=== PATIENT | male | born 1935 | race Native Hawaiian/Other Pacific Islander ===

== ENCOUNTER 2016-11-25 05:12 | Emergency (ER) | payer BC, MEDICARE ==
[2016-11-25 05:12] VITALS: BMI 18.3
[2016-11-25 05:28] VITALS: TEMP 98.1
--- NOTE | 2016-11-25 05:29 | C.PDOC ---
History Of Present Illness Patient presents to ED with complaints of progressive SOB and cough, denies fever and chills. Patient finished z pack. Time Seen by Provider: 11/25/16 05:12 Chief Complaint (Nursing): Shortness Of Breath History Per: Patient History/Exam Limitations: no limitations Onset/Duration Of Symptoms: Days (1) Current Symptoms Are (Timing): Still Present Initiating Event: Other Exacerbating Factor(s): Coughing Severity: Mild Pain Scale Rating Of: 2 Associated Symptoms: denies: Fever, Chills Reports Recently: Seen In ED, Treated By A Physician, Hospitalized Recent travel outside of the [place]: No Additional History Per: Patient Past Medical History Reviewed: Historical Data, Nursing Documentation, Vital Signs Vital Signs: Last Vital Signs Temp 98.1 F 11/25/16 05:31 Pulse 99 H 11/25/16 05:31 Resp 20 11/25/16 05:31 BP 163/79 H 11/25/16 05:20 Pulse Ox 92 L 11/25/16 06:03 - Medical History PMH: Asthma, COPD, Diabetes, Emphysema (D/C SMOKING 10 YRS AGO 1 PACK PER DAY) , HTN, Hypercholesterolemia Surgical History: Cholecystectomy (Approx. 2009) - [email or web address] Procedures CYSTOMETROGRAM (10/07/14) CYSTOSCOPY NEC (10/14/14) ENDOSCOPIC BRONCHIAL BX (01/15/13) INSERT INDWELLING CATH (10/18/14) TRANSURETHRAL PROSTATECTOMY (TULIP) (10/14/14) Family History: States: No Known Family Hx - Social History Hx Tobacco Use: No (quit 7 yrs ago) Hx Alcohol Use: No Hx Substance Use: No - Immunization History Hx Tetanus Toxoid Vaccination: No Hx Influenza Vaccination: Yes Hx Pneumococcal Vaccination: No Review Of Systems Constitutional: Negative for: Fever, Chills Cardiovascular: Negative for: Chest Pain Respiratory: Positive for: Cough, Shortness of Breath Gastrointestinal: Negative for: Nausea, Vomiting, Diarrhea Skin: Negative for: Rash, Lesions Physical Exam - Physical Exam Appears: Non-toxic Skin: Warm Eye(s): bilateral: Normal Inspection, PERRL, EOMI Oral Mucosa: Moist Neck: Supple Chest: Symmetrical Cardiovascular: Rhythm Regular Respiratory: Decreased Breath Sounds, No Rales, Rhonchi (Bases), No Wheezing Neurological/Psych: Oriented x3, Normal Speech, Normal Cognition Gait: Steady ED Course And Treatment - Laboratory Results Result Diagrams: 11/25/16 05:40 11/25/16 05:40 ECG: Interpreted By Me, Viewed By Me O2 Sat by Pulse Oximetry: 92 (Room air ) Pulse Ox Interpretation: Normal - Radiology CXR: Interpreted by Me, Viewed By Me CXR Interpretation: Yes: COPD. 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 - Scribe Statement The provider has reviewed the documentation as recorded by the Scribgrace Romano All medical record entries made by the Massielibgrcae were at my direction and personally dictated by me. I have reviewed the chart and agree that the record accurately reflects my personal performance of the history, physical exam, medical decision making, and the department course for this patient. I have also personally directed, reviewed, and agree with the discharge instructions and disposition.
[2016-11-25] MEDS ORDERED: Albuterol-Ipratrop 3 mg / 0.5 (3 ml) UD IH SCH (05:30)
[2016-11-25 05:43] LABS: BASO # 0.1 K/uL (0.0-0.2); EOS # 0.9 K/uL (0.0-0.7); EOS % 11.7 % (0.0-4.0); HEMATOCRIT 41.9 % (35.0-51.0); LYMPH # 2.3 K/uL (1.0-4.3); LYMPH % 30.9 % (20.0-40.0); MEAN CELL VOLUME 86.2 fL (80.0-94.0); MEAN CORPUSCULAR HGB CONC 32.4 g/dL (33.0-37.0); MEAN PLATELET VOLUME 7.4 fL (7.2-11.7); MONO # 0.5 K/uL (0.0-0.8); MONO % 7.3 % (0.0-10.0); WHITE BLOOD COUNT 7.3 K/uL (4.8-10.8)
[2016-11-25 05:52] LABS: CHLORIDE 100 mmol/L (98-107); POTASSIUM 4.8 mmol/L (3.6-5.2); SODIUM 141 mmol/L (132-148)
[2016-11-25 05:53] LABS: INR 0.9
[2016-11-25 05:54] LABS: BILIRUBIN,TOTAL 0.6 mg/dL (0.2-1.3); GFR AFRICAN-AMERICAN > 60
[2016-11-25 05:55] LABS: ALB/GLOB RATIO 1.5 (1.0-2.1); ALKALINE PHOSPHATASE 73 U/L (38-126); ALT/SGPT 23 U/L (21-72); AST/SGOT 32 U/L (17-59); BLOOD UREA NITROGEN 12 mg/dL (9-20); CALCIUM 8.5 mg/dl (8.6-10.4); CARBON DIOXIDE 30 mmol/L (22-30); GLUCOSE,RANDOM 116 mg/dL (75-110); MAGNESIUM 2.2 mg/dL (1.6-2.3); TOTAL PROTEIN 7.5 g/dL (6.3-8.3)
[2016-11-25 06:08] LABS: ABG ALLEN TEST POS; ARTERIAL BLOOD HGB O2 SAT 89.1 % (95.0-98.0); DRAW SITE RR; HHB 8.1 % (0.0-5.0); METHEMOGLOBIN 0.9 % (0.0-3.0)
[2016-11-25 07:09] VITALS: BP 130/80; PULSE 88; RESP 18; O2SAT 99
--- NOTE | 2016-11-25 09:12 | RAD ---
PROCEDURE: CHEST RADIOGRAPH, 1 VIEW HISTORY: SOB COMPARISON: 09/24/2014 FINDINGS: LUNGS: Biapical pleural thickening with upper lobe granulomatous changes. Scattered upper lobe nodularity. Hyperinflation suggestive for COPD and or emphysema. No focal infiltrate or effusion. PLEURA: No pneumothorax or pleural fluid seen. CARDIOVASCULAR: Normal. OSSEOUS STRUCTURES: No significant abnormalities. VISUALIZED UPPER ABDOMEN: Normal. OTHER FINDINGS: None. IMPRESSION: Biapical pleural thickening with upper lobe granulomatous changes. Scattered upper lobe nodularity. Hyperinflation suggestive for COPD and or emphysema. No focal infiltrate or effusion.
== END 2016-11-25 07:01 | disposition home or self-care (01) ==
LOC: C.ER 05:12
DX: J44.9 Chronic obstructive pulmonary disease, unspecified (principal); Z87.891 Personal history of nicotine dependence
CPT/HCPCS: 36600; 71010; 80053; 82009; 82803; 83735; 85025; 85610; 85730; 87040; 96374; 99284; J2930

== ENCOUNTER 2016-11-27 07:29 | Emergency (ER) | payer MEDICARE ==
[2016-11-27 07:30] VITALS: BMI 18.3
[2016-11-27 07:38] VITALS: TEMP 98
[2016-11-27] MEDS ORDERED: Albuterol-Ipratrop 3 mg / 0.5 (3 ml) UD INH STA ×2 (07:50→07:51)
[2016-11-27] MEDS ORDERED: Albuterol-Ipratrop 3 mg / 0.5 (3 ml) UD ONE (07:52)
--- NOTE | 2016-11-27 08:05 | C.PDOC ---
History Of Present Illness 81 y/o male, whose PMHx includes HTN, COPD, hyperlipidemia, and diabetes, brought to the ED by family for evaluation of shortness of breath for the last week. Patient reports associated productive cough with clear sputum. Patient was seen here on 11/25/16 for similar complaints, and was discharged home with prescription of Prednisone 20mg. Otherwise, pt denies any fever, chest pain, palpitations, pedal edema. Time Seen by Provider: 11/27/16 07:42 Chief Complaint (Nursing): Shortness Of Breath History Per: Patient, Family History/Exam Limitations: no limitations Onset/Duration Of Symptoms: Days (1 week) Current Symptoms Are (Timing): Still Present Exacerbating Factor(s): Coughing Severity: Mild Pain Scale Rating Of: 0 Associated Symptoms: Productive Cough. denies: Fever, Chills, Sweating, Chest Pain, Bloody Cough, Heart Racing, Leg/Calf Pain, Ankle/Leg Swelling, Dizziness, Light-headedness, Anxiety, Tingling In Hands Or Face, Musle Spasms In Hands Or Feet Reports Recently: Seen In ED Recent travel outside of the [place]: No Additional History Per: Family Past Medical History Reviewed: Historical Data, Nursing Documentation, Vital Signs Vital Signs: Last Vital Signs Temp 98 F 11/27/16 08:59 Pulse 104 H 11/27/16 08:59 Resp 22 11/27/16 08:59 BP 116/74 11/27/16 08:59 Pulse Ox 94 L 11/27/16 13:22 - Medical History PMH: Asthma, COPD, Diabetes, Emphysema (D/C SMOKING 10 YRS AGO 1 PACK PER DAY) , HTN, Hypercholesterolemia, Hyperlipidemia Surgical History: Cholecystectomy (Approx. 2009) - [facility] Procedures CYSTOMETROGRAM (10/07/14) CYSTOSCOPY NEC (10/14/14) ENDOSCOPIC BRONCHIAL BX (01/15/13) INSERT INDWELLING CATH (10/18/14) TRANSURETHRAL PROSTATECTOMY (TULIP) (10/14/14) Family History: States: No Known Family Hx - Social History Hx Tobacco Use: No (quit 7 yrs ago) Hx Alcohol Use: No Hx Substance Use: No - Immunization History Hx Tetanus Toxoid Vaccination: No Hx Influenza Vaccination: Yes Hx Pneumococcal Vaccination: No Review Of Systems Except As Marked, All Systems Reviewed And Found Negative. Constitutional: Negative for: Fever, Chills Cardiovascular: Negative for: Chest Pain, Palpitations, Edema, Light Headedness Respiratory: Positive for: Cough, Shortness of Breath, Sputum (clear). Negative for: Hemoptysis Gastrointestinal: Negative for: Nausea, Vomiting, Abdominal Pain, Diarrhea Physical Exam - Physical Exam Appears: Non-toxic, Other (mildly dyspneic) Skin: Normal Color, Warm, Dry, No Rash Head: Normacephalic Eye(s): bilateral: Normal Inspection Oral Mucosa: Moist Neck: Supple Cardiovascular: Rhythm Regular (tachycardic) Respiratory: No Accessory Muscle Use, Rales (bases bilaterally), No Rhonchi, Wheezing (expiratory wheezing bilaterally) Gastrointestinal/Abdominal: Normal Exam, Bowel Sounds, Soft, No Tenderness Extremity: Normal ROM, No Pedal Edema, No Calf Tenderness, No Swelling Pulses: Left Dorsalis Pedis: Normal, Right Dorsalis Pedis: Normal Neurological/Psych: Oriented x3 ED Course And Treatment - Laboratory Results Result Diagrams: 11/27/16 08:04 11/27/16 08:04 ECG: Interpreted By Me, Viewed By Me ECG Rhythm: Sinus Tachycardia ECG Interpretation: Abnormal (TACHYCARDIC ) Interpretation Of ECG: Normal axis. No acute ST/T wave changes. Rate From EC (bpm) O2 Sat by Pulse Oximetry: 94 (on RA) - Radiology CXR: Interpreted by Me, Viewed By Me (no infiltrates/effusions) - Other Rad CXR X-Ray: Viewed By Me, Read By Radiologist Interpretation: FINDINGS: LUNGS: No focal consolidation. Please note that chest x-ray has limited sensitivity for the detection of pulmonary masses. PLEURA: No significant pleural effusion identified. No definite pneumothorax . CARDIOVASCULAR: Heart size is top-normal. Atherosclerotic calcification of the aorta. OSSEOUS STRUCTURES: Degenerative changes. VISUALIZED UPPER ABDOMEN : Unremarkable. OTHER FINDINGS: None. IMPRESSION: No focal consolidation, significant pleural effusion, or definite pneumothorax identified. Progress Note: Blood work, EKG, CXR ordered and reviewed. Patient was given IV solumedrol and nebulizer treatments. Reevaluation Time: 08:55 Reassessment Condition: Improved (On reassessment, patient states he feels much better and would like to be discharged home. On exam, he has good air entry B/ L without wheezing/rales/accessory muscle use. Pox is 94% on RA, which is typical for him/his COPD. Blood work and CXR unremarkable. Family at bedside is in agreement with him being discharged home. He was given Rxs for increased dose of prednisone (40mg), albuterol inhaler and tessalon perles. He was instructed to follow up with PMD in 1-2 days, and understands he should return to ED immediately if symptoms worsen.) Disposition Counseled Patient/Family Regarding: Studies Performed, Diagnosis, Need For Followup, Rx Given - Disposition Referrals: Bassam Rolle MD [Staff Provider] - Mike Cornelius MD [Staff Provider] - Disposition: HOME/ ROUTINE Disposition Time: 08:55 Condition: STABLE Additional Instructions: FOLLOW UP WITH YOUR DOCTOR IN 1-2 DAYS, AND WITH [employer] WITHIN 1 WEE TAKE 40MG PREDNISONE X 4 DAYS, STARTING TOMORROW RETURN TO ER IF SYMPTOMS WORSEN Prescriptions: Benzonatate [Tessalon Perles] 100 mg PO BID PRN #15 sgl PRN Reason: Cough Albuterol HFA [Ventolin HFA 90 mcg/actuation (8 g)] 0.09 mg IH Q4 PRN #1 puff PRN Reason: Wheezing predniSONE [predniSONE Tab] 40 mg PO DAILY #4 tab Instructions: COPD (Chronic Obstructive Pulmonary Disease) (ED) Print Language: OMANI - POA Present On Arrival: None - Clinical Impression Clinical Impression: Chronic obstructive lung disease - Scribe Statement The provider has reviewed the documentation as recorded by the Massielibgrace Ohara Provider Attestation: All medical record entries made by the Massielibgrace were at my direction and personally dictated by me. I have reviewed the chart and agree that the record accurately reflects my personal performance of the history, physical exam, medical decision making, and the department course for this patient. I have also personally directed, reviewed, and agree with the discharge instructions and disposition.
[2016-11-27 08:10] LABS: BASO # 0.1 K/uL (0.0-0.2); BASO % 0.8 % (0.0-2.0); EOS # 0.1 K/uL (0.0-0.7); EOS % 0.8 % (0.0-4.0); HEMATOCRIT 39.2 % (35.0-51.0); LYMPH # 1.5 K/uL (1.0-4.3); LYMPH % 18.1 % (20.0-40.0); MEAN CELL VOLUME 87.1 fL (80.0-94.0); MEAN CORPUSCULAR HEMOGLOBIN 28.2 pg (27.0-31.0); MEAN CORPUSCULAR HGB CONC 32.4 g/dL (33.0-37.0); MEAN PLATELET VOLUME 7.1 fL (7.2-11.7); MONO # 0.6 K/uL (0.0-0.8); MONO % 7.4 % (0.0-10.0); RED CELL DISTRIBUTION WIDTH 14.3 % (11.5-14.5); WHITE BLOOD COUNT 8.3 K/uL (4.8-10.8)
[2016-11-27 08:17] LABS: CHLORIDE 102 mmol/L (98-107); POTASSIUM 4.3 mmol/L (3.6-5.2); SODIUM 141 mmol/L (132-148)
[2016-11-27 08:19] LABS: GFR AFRICAN-AMERICAN > 60; INR 0.8
[2016-11-27 08:20] LABS: ALB/GLOB RATIO 1.5 (1.0-2.1); ALKALINE PHOSPHATASE 71 U/L (38-126); ALT/SGPT 25 U/L (21-72); AST/SGOT 27 U/L (17-59); BILIRUBIN,TOTAL 0.4 mg/dL (0.2-1.3); BLOOD UREA NITROGEN 18 mg/dL (9-20); CALCIUM 8.5 mg/dl (8.6-10.4); CARBON DIOXIDE 27 mmol/L (22-30); GLUCOSE,RANDOM 95 mg/dL (75-110)
[2016-11-27 08:59] VITALS: BP 116/74; PULSE 104; RESP 22
--- NOTE | 2016-11-27 09:16 | RAD ---
HISTORY: cough, sob COMPARISON: Chest x-ray performed 11/25/16 TECHNIQUE: Chest, one view. FINDINGS: LUNGS: No focal consolidation. Please note that chest x-ray has limited sensitivity for the detection of pulmonary masses. PLEURA: No significant pleural effusion identified. No definite pneumothorax . CARDIOVASCULAR: Heart size is top-normal. Atherosclerotic calcification of the aorta. OSSEOUS STRUCTURES: Degenerative changes. VISUALIZED UPPER ABDOMEN: Unremarkable. OTHER FINDINGS: None. IMPRESSION: No focal consolidation, significant pleural effusion, or definite pneumothorax identified.
[2016-11-27 13:22] VITALS: O2SAT 94
--- NOTE | 2016-11-29 08:00 | CARD ---
APPROVED REPORT EKG Measurement Heart [id number] NM [id number] <Conclusion> Sinus tachycardia Possible Left atrial enlargement Septal infarct, age undetermined Abnormal ECG
== END 2016-11-27 09:13 | disposition home or self-care (01) ==
LOC: C.ER 07:29
DX: J44.9 Chronic obstructive pulmonary disease, unspecified (principal)
CPT/HCPCS: 71010; 80053; 82550; 82553; 82948; 83880; 84484; 85025; 85610; 85730; 87040; 93005; 94640; 96374; 99285; J2930

== ENCOUNTER 2017-08-13 07:25 | Emergency (ER) | payer MEDICARE ==
[2017-08-13 07:25] VITALS: BMI 18.3
[2017-08-13 07:35] VITALS: TEMP 98.1
[2017-08-13] MEDS ORDERED: Albuterol-Ipratrop 3 mg / 0.5 (3 ml) UD ONE (07:41)
[2017-08-13] MEDS ORDERED: Albuterol-Ipratrop 3 mg / 0.5 (3 ml) UD INH STA (07:53)
[2017-08-13 08:11] LABS: VENOUS BLOOD GAS PCO2 48 mmHg (40-60); VENOUS BLOOD GAS PO2 32 mm/Hg (30-55)
[2017-08-13 08:13] LABS: BASO % 0.5 % (0.0-2.0); EOS # 0.1 K/uL (0.0-0.7); EOS % 0.7 % (0.0-4.0); LYMPH # 0.4 K/uL (1.0-4.3); LYMPH % 5.3 % (20.0-40.0); MEAN CELL VOLUME 85.3 fL (80.0-94.0); MEAN CORPUSCULAR HEMOGLOBIN 28.6 pg (27.0-31.0); MEAN CORPUSCULAR HGB CONC 33.5 g/dL (33.0-37.0); MEAN PLATELET VOLUME 7.4 fL (7.2-11.7); MONO # 0.6 K/uL (0.0-0.8); MONO % 7.7 % (0.0-10.0); NEUT # 6.5 K/uL (1.8-7.0); NEUT % 85.8 % (50.0-75.0); PLATELET COUNT 213 K/uL (130-400); RBC 4.89 Mil/uL (4.40-5.90); RED CELL DISTRIBUTION WIDTH 14.4 % (11.5-14.5); WHITE BLOOD COUNT 7.5 K/uL (4.8-10.8)
--- NOTE | 2017-08-13 08:36 | C.PDOC ---
History Of Present Illness <Milka Mcclure - Last Filed: 08/13/17 10:01> <Sahara Salter - Last Filed: 08/14/17 16:59> 81 year old male, with past medical history of COPD, and chronic cough, presents to ED for evaluation of worsening shortness of breath and dyspnea on exertion for the past 2 weeks. Denies chest pain, fever, nausea, vomiting, or leg swelling. Notes using home oxygen 2L PRN. WORSENING SOB/HEBERT X 2 WEEKS. HO COPD. +CHRONIC COUGH. DENIES CP, FEVER. NO NV. NO LEG SWELLING. USES HOME O2 2L PRN EXAM NARD ON O2 LUNGS +DEC BS L LOWER LOBE SPEAKING FUL LSENTENCES, NO RETRACTIONS NO EDEMA CV RRR REMAINDER NEG (Milka Mcclure) Patient called back for (+) blood cultures. Spoke to the family and they will return to the hospital today. (Sahara Salter) History Per: Patient History/Exam Limitations: no limitations Onset/Duration Of Symptoms: Days Current Symptoms Are (Timing): Still Present Exacerbating Factor(s): Coughing Current Respiratory Medications: See Home Med List Associated Symptoms: denies: Fever, Chills, Sweating, Chest Pain, Bloody Cough, Heart Racing, Leg/Calf Pain, Ankle/Leg Swelling, Dizziness, Light-headedness, Anxiety, Tingling In Hands Or Face, Musle Spasms In Hands Or Feet Recent travel outside of the [place]: No Additional History Per: Patient <Milka Mcclure - Last Filed: 08/13/17 10:01> <Sahara Salter - Last Filed: 08/14/17 16:59> Time Seen by Provider: 08/13/17 08:05 Chief Complaint (Nursing): Shortness Of Breath Past Medical History Reviewed: Historical Data, Nursing Documentation, Vital Signs - Medical History PMH: Asthma, COPD, Diabetes, Emphysema (D/C SMOKING 10 YRS AGO 1 PACK PER DAY) , HTN, Hypercholesterolemia, Hyperlipidemia Surgical History: Cholecystectomy Family History: States: Unknown Family Hx - Social History Hx Tobacco Use: No (quit 7 yrs ago) Hx Alcohol Use: No Hx Substance Use: No - Immunization History Hx Tetanus Toxoid Vaccination: No Hx Influenza Vaccination: Yes Hx Pneumococcal Vaccination: Yes <Milka Mcclure - Last Filed: 08/13/17 10:01> Vital Signs: Last Vital Signs Temp 98.1 F 08/13/17 07:32 Pulse 122 H 08/13/17 10:35 Resp 21 08/13/17 10:35 BP 114/63 08/13/17 10:35 Pulse Ox 94 L 08/13/17 10:35 - [facility] Procedures CYSTOMETROGRAM (10/07/14) CYSTOSCOPY NEC (10/14/14) ENDOSCOPIC BRONCHIAL BX (01/15/13) INSERT INDWELLING CATH (10/18/14) TRANSURETHRAL PROSTATECTOMY (TULIP) (10/14/14) Review Of Systems Except As Marked, All Systems Reviewed And Found Negative. Constitutional: Negative for: Fever, Chills Cardiovascular: Negative for: Chest Pain, Palpitations, Edema, Light Headedness Respiratory: Positive for: Cough, Shortness of Breath, SOB with Excertion Gastrointestinal: Negative for: Nausea, Vomiting, Abdominal Pain Neurological: Negative for: Headache, Dizziness <RenMilka - Last Filed: 08/13/17 10:01> Physical Exam - Physical Exam Appears: Non-toxic, No Acute Distress (No acute respiratory distress on O2) Skin: Normal Color, Warm, Dry Head: Atraumatic, Normacephalic Eye(s): bilateral: Normal Inspection Oral Mucosa: Moist Neck: Normal ROM, Supple Chest: Symmetrical Cardiovascular: Rhythm Regular, No Murmur Respiratory: Decreased Breath Sounds (left lower lobe), Other (speaking in full sentences, no retractions) Gastrointestinal/Abdominal: Soft, No Tenderness Extremity: Normal ROM, No Pedal Edema Neurological/Psych: Oriented x3, Normal Speech <RenMilka - Last Filed: 08/13/17 10:01> ED Course And Treatment - Laboratory Results Result Diagrams: 08/13/17 08:08 08/13/17 08:08 ECG: Interpreted By Me ECG Rhythm: Sinus Tachycardia ECG Interpretation: Abnormal Rate From EC O2 Sat by Pulse Oximetry: 93 Pulse Ox Interpretation: Abnormal - Radiology CXR: Interpreted by Me CXR Interpretation: Yes: No Acute Disease <RenMilka - Last Filed: 08/13/17 10:01> - Laboratory Results Result Diagrams: 08/13/17 08:08 08/13/17 08:08 <Sahara Salter - Last Filed: 08/14/17 16:59> Progress - Data Reviewed Data Reviewed: Lab, Diagnostic imaging, EKG, Old records <Milka Mcclure - Last Filed: 08/13/17 10:01> <Sahara Salter - Last Filed: 08/14/17 16:59> - Re-Evaluation Re-evaluation Note: 08/13/17 10:01 APPEARS COMFORTABLE NARD 94% RA SP NEBS. PT DENIES RECENT ETOH, PRIOR HO ABN LFT. ANICTERIC, NO ABD PAIN OR ASCITES, JAUNDICE. PT ADVISED NEED FOR FU. PT OFFERED ADMISSION, WISHES DC HOME. (Milka Mcclure) Medical Decision Making <Milka Mcclure - Last Filed: 08/13/17 10:01> <Sahara Salter - Last Filed: 08/14/17 16:59> Medical Decision Making: Plan: * Blood work * CXR * EKG * Duoneb, Solu-Medrol, IV fluids * Reassess and disposition (Milka Mcclure) Disposition Counseled Patient/Family Regarding: Studies Performed, Diagnosis, Need For Followup, Rx Given - Disposition Disposition Time: 10:03 <Milka Mcclure - Last Filed: 08/13/17 10:01> <Sahara Salter - Last Filed: 08/14/17 16:59> - Disposition Referrals: YOUR,PMD [Other] Disposition: HOME/ ROUTINE Condition: IMPROVED Prescriptions: Moxifloxacin [Avelox] 400 mg PO DAILY #6 tab predniSONE [Prednisone] 60 mg PO DAILY #12 tab Instructions: Acute Bronchitis (ED), COPD (Chronic Obstructive Pulmonary Disease) (ED) Forms: [employer] (Romansh) - Clinical Impression Clinical Impression: Chr obstructive pulmonary disease w/ acute lower respiratory infxn - Scribe Statement The provider has reviewed the documentation as recorded by the Scribe <Milka Mcclure - Last Filed: 08/13/17 10:01> <Sahara Salter - Last Filed: 08/14/17 16:59> - Scribe Statement Agustin Ohara All medical record entries made by the Scribe were at my direction and personally dictated by me. I have reviewed the chart and agree that the record accurately reflects my personal performance of the history, physical exam, medical decision making, and the department course for this patient. I have also personally directed, reviewed, and agree with the discharge instructions and disposition. (Milka Mcclure)
[2017-08-13] MEDS ORDERED: Sodium Chloride 0.9% 1,000 ML IV ONE (08:49)
[2017-08-13] MEDS ORDERED: MethylPREDNISolone 40 mg Vial IVP STA (08:50)
[2017-08-13 08:56] LABS: ALB/GLOB RATIO 1.3 (1.0-2.1); ALBUMIN 4.2 g/dL (3.5-5.0); ALT/SGPT 164 U/L (21-72); AST/SGOT 85 U/L (17-59); BLOOD UREA NITROGEN 14 mg/dL (9-20); CALCIUM 9.1 mg/dl (8.6-10.4); GFR AFRICAN-AMERICAN > 60; GFR NON-AFRICAN AMERICAN 58
[2017-08-13] MEDS ORDERED: Sodium Chloride 0.9% 1,000 ML ONE (09:20)
[2017-08-13] MEDS ORDERED: MethylPREDNISolone 40 mg Vial ONE (09:20)
[2017-08-13 09:31] LABS: BANDS 1 % (0-2); LYMPHOCYTE 2 % (20-40); MONOCYTE 6 % (0-10); NEUTROPHIL 91 % (50-75); PLATELET ESTIMATE NORMAL (NORMAL); TOTAL CELLS COUNTED 100
--- NOTE | 2017-08-13 10:15 | RAD ---
PROCEDURE: CHEST RADIOGRAPH, 1 VIEW HISTORY: SOB COMPARISON: Comparison is made to 11/27/2026 FINDINGS: LUNGS: No evidence of new infiltrate or consolidation in the lungs PLEURA: No pneumothorax or pleural fluid seen. CARDIOVASCULAR: Normal. OSSEOUS STRUCTURES: No significant abnormalities. VISUALIZED UPPER ABDOMEN: Normal. OTHER FINDINGS: None. IMPRESSION: No evidence of acute pathology in the lungs.
[2017-08-13 11:13] VITALS: BP 114/63; PULSE 122; RESP 21; O2SAT 94
--- NOTE | 2017-08-15 13:14 | CARD ---
APPROVED REPORT EKG Measurement Heart [id number] <Conclusion> Sinus tachycardia with premature atrial complexes in a pattern of bigeminy Possible Left atrial enlargement Borderline ECG
== END 2017-08-13 10:40 | disposition home or self-care (01) ==
LOC: C.ER 07:25
DX: J44.0 Chronic obstructive pulmonary disease with (acute) lower respiratory infection (principal)
CPT/HCPCS: 71010; 80053; 82803; 82948; 83880; 85025; 87040; 87205; 93005; 96361; 96374; 99285; J2920; J7040

== ENCOUNTER 2017-08-14 17:49 | Inpatient (IN) | payer MEDICARE ==
[2017-08-14 17:49] VITALS: BMI 18.3
--- NOTE | 2017-08-14 18:21 | C.PDOC ---
History Of Present Illness 81 year old male presents to the ER after he received results for positive blood cultures with gram negative rods. Patient currently has no complaints at this times and denies any symptoms of fever, chest pain, SOB, or cough. Time Seen by Provider: 08/14/17 17:57 Chief Complaint (Nursing): Medical Clearance History Per: Patient History/Exam Limitations: no limitations Onset/Duration Of Symptoms: Days Current Symptoms Are (Timing): Still Present Recent travel outside of the [place]: No Past Medical History Reviewed: Historical Data, Nursing Documentation, Vital Signs Vital Signs: Last Vital Signs Temp 98.7 F 08/19/17 07:43 Pulse 72 08/19/17 07:43 Resp 20 08/19/17 07:43 BP 120/70 08/19/17 07:43 Pulse Ox 99 08/19/17 07:43 - Medical History PMH: Asthma, COPD, Diabetes, Emphysema (D/C SMOKING 10 YRS AGO 1 PACK PER DAY) , HTN, Hypercholesterolemia, Hyperlipidemia Surgical History: Cholecystectomy - [facility] Procedures CYSTOMETROGRAM (10/07/14) CYSTOSCOPY NEC (10/14/14) ENDOSCOPIC BRONCHIAL BX (01/15/13) INSERT INDWELLING CATH (10/18/14) TRANSURETHRAL PROSTATECTOMY (TULIP) (10/14/14) Family History: States: Unknown Family Hx - Social History Hx Tobacco Use: No (quit 7 yrs ago) Hx Alcohol Use: No Hx Substance Use: No - Immunization History Hx Tetanus Toxoid Vaccination: No Hx Influenza Vaccination: Yes Hx Pneumococcal Vaccination: Yes Review Of Systems Except As Marked, All Systems Reviewed And Found Negative. Physical Exam - Physical Exam Appears: Non-toxic, Chronically Ill Skin: Normal Color, Warm, Dry Head: Atraumatic, Normacephalic Eye(s): bilateral: Normal Inspection Oral Mucosa: Moist Neck: Normal, Supple Chest: Symmetrical, No Tenderness Cardiovascular: Rhythm Regular Respiratory: Normal Breath Sounds, No Rales, No Rhonchi, No Wheezing Gastrointestinal/Abdominal: Soft, No Tenderness Neurological/Psych: Oriented x3, Normal Speech ED Course And Treatment - Laboratory Results Result Diagrams: 08/18/17 06:16 08/18/17 06:16 O2 Sat by Pulse Oximetry: 95 (Room air) Pulse Ox Interpretation: Normal Medical Decision Making Medical Decision Making: Blood work, EKG, CXR, and urinalysis ordered. The case was discussed with Dr. Rolle and agrees to admit the patient. Disposition - Disposition Disposition: HOSPITALIZED Disposition Time: 18:30 Condition: STABLE - Clinical Impression Clinical Impression: Bacteremia - PA / MANIFEST CLERK / Resident Statement MD/DO has reviewed & agrees with the documentation as recorded. - Scribe Statement The provider has reviewed the documentation as recorded by the Scribe Tommy Sawant All medical record entries made by the Massielibe were at my direction and personally dictated by me. I have reviewed the chart and agree that the record accurately reflects my personal performance of the history, physical exam, medical decision making, and the department course for this patient. I have also personally directed, reviewed, and agree with the discharge instructions and disposition.
[2017-08-14 18:32] LABS: VENOUS BLOOD GAS BASE EXCESS 4.7 mmol/L (0.0-2.0); VENOUS BLOOD GAS PCO2 51 mmHg (40-60); VENOUS BLOOD GAS PO2 30 mm/Hg (30-55); VENOUS BLOOD PH 7.39 (7.32-7.43)
[2017-08-14 18:33] LABS: BASO % 0.4 % (0.0-2.0); EOS # 0.1 K/uL (0.0-0.7); EOS % 0.8 % (0.0-4.0); HEMOGLOBIN 12.9 g/dL (12.0-18.0); LYMPH # 1.3 K/uL (1.0-4.3); LYMPH % 10.1 % (20.0-40.0); MEAN CORPUSCULAR HEMOGLOBIN 28.1 pg (27.0-31.0); MEAN PLATELET VOLUME 7.5 fL (7.2-11.7); MONO % 8.1 % (0.0-10.0); NEUT # 10.2 K/uL (1.8-7.0); NEUT % 80.6 % (50.0-75.0); RBC 4.59 Mil/uL (4.40-5.90); RED CELL DISTRIBUTION WIDTH 14.6 % (11.5-14.5)
[2017-08-14 18:35] LABS: WHITE BLOOD COUNT 12.6 K/uL (4.8-10.8)
[2017-08-14 18:41] LABS: INR 0.9; PROTHROMBIN TIME 9.7 SECONDS (9.7-12.2)
[2017-08-14 18:52] LABS: ALB/GLOB RATIO 1.2 (1.0-2.1); ALBUMIN 3.9 g/dL (3.5-5.0); CALCIUM 8.4 mg/dl (8.6-10.4); MAGNESIUM 2.2 mg/dL (1.6-2.3)
[2017-08-14] MEDS ORDERED: cefTRIAXone 2 GM in Sodium Chloride 0.9% 100 ML IVPB STA (18:53)
[2017-08-14] MEDS ORDERED: cefTRIAXone 2 GM in Dextrose 5% In Water 100 ML IVPB ONE (20:00)
[2017-08-14] MEDS: Fluticasone-Salmeterol 500-50mcg Diskus INH SCH (20:05)
--- NOTE | 2017-08-14 21:58 | US ---
EXAM: US Abdomen Complete CLINICAL HISTORY: 81 years old, male; Signs and symptoms; Abdominal or pelvic symptoms: Abnormal lft's; Prior surgery; Surgery date: 6+ months; Surgery type: Gb surgery; Additional info: Abnormal lft; (+) gm negative inblood culture TECHNIQUE: Real-time ultrasound of the abdomen (complete) with image documentation. COMPARISON: No relevant prior studies available. FINDINGS: Liver: Fatty infiltration. No mass. No intrahepatic ductal dilatation. Gallbladder: Cholecystectomy. Common bile duct: Up to 1.3 cm in diameter. No stones. Pancreas: Unremarkable as visualized. Kidneys: Increased in echogenicity. Small right renal cyst. No hydronephrosis. Spleen: No splenomegaly. Aorta: Unremarkable. No aneurysm. Inferior vena cava: Unremarkable. Free fluid: No significant free fluid. IMPRESSION: 1. Biliary ductal dilatation. Correlate with laboratory values. Consider MRCP. 2. Echogenic kidneys suggesting medical renal disease. 3. Incidental/non-acute findings are described above.
[2017-08-14] MEDS: (Novolog) Insulin Aspart, Recombinant 100 u/ml 10 ml vial SC SCH (22:39)
[2017-08-14] MEDS: Enoxaparin 30 mg Syringe SC SCH (22:40)
[2017-08-14 23:05] LABS: URINE BILIRUBIN NEGATIVE (NEGATIVE); URINE BLOOD 1+ (NEGATIVE); URINE CLARITY Clear (Clear); URINE COLOR Yellow (YELLOW); URINE GLUCOSE (UA) NORMAL (Normal); URINE LEUKOCYTE ESTERASE NEG Leu/uL (Negative); URINE NITRATE NEGATIVE (NEGATIVE); URINE PROTEIN 1+ mg/dL (NEGATIVE); URINE UROBILINOGEN NORMAL mg/dL (0.2-1.0)
[2017-08-14] MEDS: Albuterol 0.042% Inhal Sol (1.25 mg/3 mL) UD INH PRN (23:29)
[2017-08-15] MEDS: Cefepime IV 1 gm in Dextrose 1 GM/50 ML BAG IVPB SCH ×2 (00:44→12:41)
[2017-08-15] MEDS: Albuterol 0.042% Inhal Sol (1.25 mg/3 mL) UD INH PRN ×4 (05:24→23:38)
[2017-08-15] MEDS: (Novolog) Insulin Aspart, Recombinant 100 u/ml 10 ml vial SC SCH ×4 (08:12→21:26)
[2017-08-15] MEDS: Enoxaparin 30 mg Syringe SC SCH ×2 (09:26→21:22)
[2017-08-15] MEDS: Fluticasone-Salmeterol 500-50mcg Diskus INH SCH ×2 (09:33→20:01)
--- NOTE | 2017-08-15 09:33 | CP.PCM.HP ---
History of Present Illness - History of Present Illness History of Present Illness: CC: (+) Result 81 y/o male with COPD, NIDDM, BPH. Patient went to Er c/o choking sensation that usually happen if mucus is stuck on his throat. He was given Neb Tx and sent home. he was recalled yesterday c/o (+) Bld C/S with Gm neg rods. Present on Admission - Present on Admission Any Indicators Present on Admission: Yes History of DVT/PE: No History of Uncontrolled Diabetes: No Urinary Catheter: No Decubitus Ulcer Present: No Review of Systems - Review of Systems Systems not reviewed;Unavailable: Acuity of Condition - Constitutional Constitutional: absent: Anorexia, Chills, Night Sweats, Weight Loss - EENT Eyes: absent: Change in Vision, Pain, Sees Flashes, Other Visual Disturbances Ears: absent: Ear Discharge, Disequilibrium, Dizziness Nose/Mouth/Throat: absent: Nasal Congestion, Bleeding Gums, Halitosis, Mouth Pain - Cardiovascular Cardiovascular: Dyspnea. absent: Irregular Heart Rhythm, Leg Edema, Palpitations, Pedal Edema, Syncope - Respiratory Respiratory: Cough, Dyspnea on Exertion, Wheezing. absent: Chest Congestion, Excessive Mucous Production, Change in Mucous Color - Gastrointestinal Gastrointestinal: absent: Bloating, Change in Bowel Habits, Dyspepsia, Dysphagia , Excessive Flatus, Heartburn, Hematochezia, Nausea - Genitourinary Genitourinary: absent: Hematuria, Pyuria, Nocturia, Urinary Urgency - Musculoskeletal Musculoskeletal: absent: Arthralgias, Muscle Weakness, Neck Pain - Integumentary Integumentary: absent: Alopecia, Change in Hair, Rash - Neurological Neurological: absent: Disequilibrium, Dizziness, Numbness, Focal Weakness Past Patient History - Infectious Disease Hx of Infectious Diseases: None - Past Medical History & Family History Past Medical History?: Yes - Past Social History Smoking Status: Former Smoker - CARDIAC Hx Cardiac Disorders: Yes Hx Hypercholesterolemia: Yes Hx Hypertension: Yes - PULMONARY Hx Respiratory Disorders: Yes Hx Asthma: Yes Hx Chronic Obstructive Pulmonary Disease (COPD): Yes Hx Emphysema: Yes (D/C SMOKING 10 YRS AGO 1 PACK PER DAY) - NEUROLOGICAL Hx Neurological Disorder: No - HEENT Hx HEENT Problems: No - RENAL Hx Chronic Kidney Disease: No - ENDOCRINE/METABOLIC Hx Endocrine Disorders: Yes Hx Diabetes Mellitus Type 2: Yes - HEMATOLOGICAL/ONCOLOGICAL Hx Blood Disorders: No - INTEGUMENTARY Hx Dermatological Problems: No - MUSCULOSKELETAL/RHEUMATOLOGICAL Hx Musculoskeletal Disorders: No Hx Falls: No - GASTROINTESTINAL Hx Gastrointestinal Disorders: No - GENITOURINARY/GYNECOLOGICAL Hx Genitourinary Disorders: Yes (URINARY RETENTION) Hx Prostate Problems: Yes - PSYCHIATRIC Hx Psychophysiologic Disorder: No Hx Substance Use: No - SURGICAL HISTORY Hx Surgeries: Yes Hx Cholecystectomy: Yes - ANESTHESIA Hx Anesthesia: Yes Hx Anesthesia Reactions: No Hx Malignant Hyperthermia: No Has any member of the family had a problem w/ anesthesia?: No Meds Allergies/Adverse Reactions: Allergies Allergy/AdvReac Type Severity Reaction Status Date / Time No Known Allergies Allergy Verified 08/13/17 07:32 Physical Exam - Constitutional Appears: No Acute Distress - Eye Exam Eye Exam: Normal appearance - ENT Exam ENT Exam: Mucous Membranes Moist - Neck Exam Neck exam: Positive for: Full Rom. Negative for: Lymphadenopathy, Thyromegaly - Respiratory Exam Respiratory Exam: Decreased Breath Sounds, Wheezes. absent: Rales, Rhonchi - Cardiovascular Exam Cardiovascular Exam: REGULAR RHYTHM, +S1, +S2, Systolic Murmur. absent: Gallop , JVD - GI/Abdominal Exam GI & Abdominal Exam: Soft. absent: Mass, Rebound, Tenderness - Extremities Exam Extremities exam: Positive for: full ROM, normal capillary refill. Negative for : calf tenderness, joint swelling, pedal edema Results - Vital Signs Recent Vital Signs: Last Vital Signs Temp 98.3 F 08/15/17 07:56 Pulse 86 08/15/17 07:56 Resp 20 08/15/17 07:56 BP 133/71 08/15/17 07:56 Pulse Ox 95 08/15/17 07:56 - Labs Result Diagrams: 08/14/17 18:25 08/14/17 18:25 Labs: Laboratory Results - last 24 hr 08/14/17 08/14/17 08/14/17 18:25 18:25 18:25 WBC 12.6 H D RBC 4.59 Hgb 12.9 Hct 39.0 MCV 85.0 MCH 28.1 MCHC 33.0 RDW 14.6 H Plt Count 221 MPV 7.5 Neut % (Auto) 80.6 H Lymph % (Auto) 10.1 L [place] % (Auto) 8.1 Eos % (Auto) 0.8 Baso % (Auto) 0.4 Neut # 10.2 H Lymph # 1.3 [place] # 1.0 H Eos # 0.1 Baso # 0.0 PT 9.7 INR 0.9 APTT 31 pO2 VBG pH VBG pCO2 VBG HCO3 VBG Total CO2 VBG O2 Sat (Calc) VBG Base Excess VBG Potassium Glucose Lactate Sodium 134 Potassium 4.1 Chloride 97 L Carbon Dioxide 28 Anion Gap 12 BUN 26 H Creatinine 1.4 Est GFR ( Amer) 59 Est GFR (Non-Af Amer) 49 POC Glucose (mg/dL) Random Glucose 174 H Hemoglobin A1c Calcium 8.4 L Phosphorus 2.9 Magnesium 2.2 Total Bilirubin 0.5 AST 60 H D ALT 107 H D Alkaline Phosphatase 162 H D Total Protein 7.1 Albumin 3.9 Globulin 3.2 Albumin/Globulin Ratio 1.2 Venous Blood Potassium Urine Color Urine Clarity Urine pH Ur Specific [place] Urine Protein Urine Glucose (UA) Urine Ketones Urine Blood Urine Nitrate Urine Bilirubin Urine Urobilinogen Ur Leukocyte Esterase Urine WBC (Auto) Urine RBC (Auto) 08/14/17 08/14/17 08/14/17 18:28 20:03 21:02 WBC RBC Hgb Hct MCV MCH MCHC RDW Plt Count MPV Neut % (Auto) Lymph % (Auto) [place] % (Auto) Eos % (Auto) Baso % (Auto) Neut # Lymph # [place] # Eos # Baso # PT INR APTT pO2 30 VBG pH 7.39 VBG pCO2 51 VBG HCO3 27.5 VBG Total CO2 32.5 H VBG O2 Sat (Calc) 67.1 H VBG Base Excess 4.7 H VBG Potassium 3.9 Glucose 183 H Lactate 1.9 Sodium 140.0 Potassium Chloride 104.0 Carbon Dioxide Anion Gap BUN Creatinine Est GFR ( Amer) Est GFR (Non-Af Amer) POC Glucose (mg/dL) 119 H Random Glucose Hemoglobin A1c 7.0 H Calcium Phosphorus Magnesium Total Bilirubin AST ALT Alkaline Phosphatase Total Protein Albumin Globulin Albumin/Globulin Ratio Venous Blood Potassium 3.9 Urine Color Urine Clarity Urine pH Ur Specific [place] Urine Protein Urine Glucose (UA) Urine Ketones Urine Blood Urine Nitrate Urine Bilirubin Urine Urobilinogen Ur Leukocyte Esterase Urine WBC (Auto) Urine RBC (Auto) 08/14/17 22:41 WBC RBC Hgb Hct MCV MCH MCHC RDW Plt Count MPV Neut % (Auto) Lymph % (Auto) [place] % (Auto) Eos % (Auto) Baso % (Auto) Neut # Lymph # [place] # Eos # Baso # PT INR APTT pO2 VBG pH VBG pCO2 VBG HCO3 VBG Total CO2 VBG O2 Sat (Calc) VBG Base Excess VBG Potassium Glucose Lactate Sodium Potassium Chloride Carbon Dioxide Anion Gap BUN Creatinine Est GFR ( Amer) Est GFR (Non-Af Amer) POC Glucose (mg/dL) Random Glucose Hemoglobin A1c Calcium Phosphorus Magnesium Total Bilirubin AST ALT Alkaline Phosphatase Total Protein Albumin Globulin Albumin/Globulin Ratio Venous Blood Potassium Urine Color Yellow Urine Clarity Clear Urine pH 5.0 Ur Specific [place] 1.023 Urine Protein 1+ H Urine Glucose (UA) Normal Urine Ketones Negative Urine Blood 1+ H Urine Nitrate Negative Urine Bilirubin Negative Urine Urobilinogen Normal Ur Leukocyte Esterase Neg Urine WBC (Auto) 2 Urine RBC (Auto) 5 H - EKG Data EKG Interpreted by: Myself Rate: Normal - EKG Data When Compared to Previous EKG: No Significant Change Assessment & Plan - Assessment and Plan (Free Text) Assessment: Gram negative Sepsis ? source COPD, Exac; NIDDM For ID and GI eval Cont meds/ IV antibiotic as per ID
--- NOTE | 2017-08-15 10:04 | RAD ---
PROCEDURE: CHEST RADIOGRAPH, 1 VIEW HISTORY: SOB COMPARISON: Chest x-ray 08/13/2017 and angio chest PE study 01/08/2015 FINDINGS: LUNGS: No consolidation. Granulomatous disease in the upper lobes. Bilateral hyperaeration - background COPD inferred -similar-appearing As per the CT chest report angio chest PE study 01/08/2015 "Stable left upper lobe nodule is seen measuring 5.6 x 4 centimeters, unchanged since CT of the chest from 01/15/2013". These findings likely correspond to the current radiographic appearance in the left upper lobe. PLEURA: No pneumothorax. Biapical pleural thickening. No pleural effusion. CARDIOVASCULAR: Normal. OSSEOUS STRUCTURES: No significant abnormalities. VISUALIZED UPPER ABDOMEN: Normal. OTHER FINDINGS: None. IMPRESSION: No interval acute cardiopulmonary pathology COPD . Biapical pleural thickening, granulomatous changes and stable left upper lobe pulmonary nodules. Findings known previously referenced ,
[2017-08-15] MEDS: Tiotropium 18 mcg Cap For Inhalation INH SCH (11:16)
--- NOTE | 2017-08-15 13:20 | CP.PCM.CON ---
History of Present Illness - History of Present Illness History of Present Illness: ASked today to see pt for GI consult Weak. Cough x few days. BCs pos for GN. Deneis constip, RB, melena, wt loss, abdom pain, fever, chills. PMH: COPD< DM, HTN PSH: DEBORAH 5 yrs ago. Reports neg colonsocpy 8 years ago. Review of Systems - Constitutional Constitutional: Fatigue. absent: Chills, Fever, Weight Gain, Weight Loss - Cardiovascular Cardiovascular: Chest Pain, Dyspnea - Respiratory Respiratory: Cough, Dyspnea. absent: Hemoptysis - Gastrointestinal Gastrointestinal: absent: Constipation, Diarrhea, Hematemesis, Hematochezia, Loose Stools, Melena, Nausea, Vomiting - Genitourinary Genitourinary: absent: Hematuria - Musculoskeletal Musculoskeletal: absent: Muscle Weakness - Integumentary Integumentary: absent: Jaundice - Neurological Neurological: absent: Convulsions Past Patient History - Infectious Disease Hx of Infectious Diseases: None - Past Medical History & Family History Past Medical History?: Yes - Past Social History Smoking Status: Former Smoker - CARDIAC Hx Cardiac Disorders: Yes Hx Hypercholesterolemia: Yes Hx Hypertension: Yes - PULMONARY Hx Respiratory Disorders: Yes Hx Asthma: Yes Hx Chronic Obstructive Pulmonary Disease (COPD): Yes Hx Emphysema: Yes (D/C SMOKING 10 YRS AGO 1 PACK PER DAY) - NEUROLOGICAL Hx Neurological Disorder: No - HEENT Hx HEENT Problems: No - RENAL Hx Chronic Kidney Disease: No - ENDOCRINE/METABOLIC Hx Endocrine Disorders: Yes Hx Diabetes Mellitus Type 2: Yes - HEMATOLOGICAL/ONCOLOGICAL Hx Blood Disorders: No - INTEGUMENTARY Hx Dermatological Problems: No - MUSCULOSKELETAL/RHEUMATOLOGICAL Hx Musculoskeletal Disorders: No Hx Falls: No - GASTROINTESTINAL Hx Gastrointestinal Disorders: No - GENITOURINARY/GYNECOLOGICAL Hx Genitourinary Disorders: Yes (URINARY RETENTION) Hx Prostate Problems: Yes - PSYCHIATRIC Hx Psychophysiologic Disorder: No Hx Substance Use: No - SURGICAL HISTORY Hx Surgeries: Yes Hx Cholecystectomy: Yes - ANESTHESIA Hx Anesthesia: Yes Hx Anesthesia Reactions: No Hx Malignant Hyperthermia: No Has any member of the family had a problem w/ anesthesia?: No Meds Allergies/Adverse Reactions: Allergies Allergy/AdvReac Type Severity Reaction Status Date / Time No Known Allergies Allergy Verified 08/13/17 07:32 - Medications Medications: Current Medications Albuterol Sulfate (Albuterol 0.042% Inhal [place] (1.25mg/3ml) Ud) 1.25 mg INH RQ4 PRN PRN Reason: Shortness of Breath Alprazolam (Xanax) 0.25 mg PO TID PRN PRN Reason: Anxiety Stop: 08/22/17 09:29 Enoxaparin Sodium (Lovenox) 30 mg SC Q12 [facility] Last Admin: 08/15/17 09:26 Dose: 30 mg Cefepime HCl (Maxipime Iv 1 Gm Premix) 1 gm in 50 mls @ 100 mls/hr IVPB Q12H [facility] Last Admin: 08/15/17 12:41 Dose: 100 mls/hr Insulin Aspart (Novolog) 0 unit SC ACHS [place] PRN Reason: Protocol Last Admin: 08/15/17 11:55 Dose: Not Given Fluticasone/Salmeterol (Advair Diskus 500/50) 1 puff INH RQ12 [facility] Last Admin: 08/15/17 09:33 Dose: 1 puff Tamsulosin HCl (Flomax) 0.4 mg PO DAILY [facility] Last Admin: 08/15/17 09:27 Dose: 0.4 mg Tiotropium [place] (Spiriva) 18 mcg INH RQ24 [facility] Last Admin: 08/15/17 11:16 Dose: 18 mcg Physical Exam - Constitutional Appears: Well - Respiratory Exam Respiratory Exam: Clear to Auscultation Bilateral - Cardiovascular Exam Cardiovascular Exam: RRR - GI/Abdominal Exam GI & Abdominal Exam: Normal Bowel Sounds, Soft. absent: Distended, Guarding, Mass, Tenderness - Extremities Exam Extremities exam: Negative for: calf tenderness - Neurological Exam Neurological exam: Alert, Oriented x3 Results - Vital Signs Recent Vital Signs: Last Vital Signs Temp 98.3 F 08/15/17 07:56 Pulse 86 08/15/17 07:56 Resp 20 08/15/17 07:56 BP 133/71 08/15/17 07:56 Pulse Ox 95 08/15/17 07:56 - Labs Result Diagrams: 08/14/17 18:25 08/14/17 18:25 Labs: Laboratory Results - last 24 hr 08/14/17 08/14/17 08/14/17 18:25 18:25 18:25 WBC 12.6 H D RBC 4.59 Hgb 12.9 Hct 39.0 MCV 85.0 MCH 28.1 MCHC 33.0 RDW 14.6 H Plt Count 221 MPV 7.5 Neut % (Auto) 80.6 H Lymph % (Auto) 10.1 L [place] % (Auto) 8.1 Eos % (Auto) 0.8 Baso % (Auto) 0.4 Neut # 10.2 H Lymph # 1.3 [place] # 1.0 H Eos # 0.1 Baso # 0.0 PT 9.7 INR 0.9 APTT 31 pO2 VBG pH VBG pCO2 VBG HCO3 VBG Total CO2 VBG O2 Sat (Calc) VBG Base Excess VBG Potassium Glucose Lactate Sodium 134 Potassium 4.1 Chloride 97 L Carbon Dioxide 28 Anion Gap 12 BUN 26 H Creatinine 1.4 Est GFR ( Amer) 59 Est GFR (Non-Af Amer) 49 POC Glucose (mg/dL) Random Glucose 174 H Hemoglobin A1c Calcium 8.4 L Phosphorus 2.9 Magnesium 2.2 Total Bilirubin 0.5 AST 60 H D ALT 107 H D Alkaline Phosphatase 162 H D Total Protein 7.1 Albumin 3.9 Globulin 3.2 Albumin/Globulin Ratio 1.2 Venous Blood Potassium Urine Color Urine Clarity Urine pH Ur Specific [place] Urine Protein Urine Glucose (UA) Urine Ketones Urine Blood Urine Nitrate Urine Bilirubin Urine Urobilinogen Ur Leukocyte Esterase Urine WBC (Auto) Urine RBC (Auto) 08/14/17 08/14/17 08/14/17 18:28 20:03 21:02 WBC RBC Hgb Hct MCV MCH MCHC RDW Plt Count MPV Neut % (Auto) Lymph % (Auto) [place] % (Auto) Eos % (Auto) Baso % (Auto) Neut # Lymph # [place] # Eos # Baso # PT INR APTT pO2 30 VBG pH 7.39 VBG pCO2 51 VBG HCO3 27.5 VBG Total CO2 32.5 H VBG O2 Sat (Calc) 67.1 H VBG Base Excess 4.7 H VBG Potassium 3.9 Glucose 183 H Lactate 1.9 Sodium 140.0 Potassium Chloride 104.0 Carbon Dioxide Anion Gap BUN Creatinine Est GFR ( Amer) Est GFR (Non-Af Amer) POC Glucose (mg/dL) 119 H Random Glucose Hemoglobin A1c 7.0 H Calcium Phosphorus Magnesium Total Bilirubin AST ALT Alkaline Phosphatase Total Protein Albumin Globulin Albumin/Globulin Ratio Venous Blood Potassium 3.9 Urine Color Urine Clarity Urine pH Ur Specific [place] Urine Protein Urine Glucose (UA) Urine Ketones Urine Blood Urine Nitrate Urine Bilirubin Urine Urobilinogen Ur Leukocyte Esterase Urine WBC (Auto) Urine RBC (Auto) 08/14/17 08/15/17 22:41 06:53 WBC RBC Hgb Hct MCV MCH MCHC RDW Plt Count MPV Neut % (Auto) Lymph % (Auto) [place] % (Auto) Eos % (Auto) Baso % (Auto) Neut # Lymph # [place] # Eos # Baso # PT INR APTT pO2 VBG pH VBG pCO2 VBG HCO3 VBG Total CO2 VBG O2 Sat (Calc) VBG Base Excess VBG Potassium Glucose Lactate Sodium Potassium Chloride Carbon Dioxide Anion Gap BUN Creatinine Est GFR ( Amer) Est GFR (Non-Af Amer) POC Glucose (mg/dL) 107 Random Glucose Hemoglobin A1c Calcium Phosphorus Magnesium Total Bilirubin AST ALT Alkaline Phosphatase Total Protein Albumin Globulin Albumin/Globulin Ratio Venous Blood Potassium Urine Color Yellow Urine Clarity Clear Urine pH 5.0 Ur Specific [place] 1.023 Urine Protein 1+ H Urine Glucose (UA) Normal Urine Ketones Negative Urine Blood 1+ H Urine Nitrate Negative Urine Bilirubin Negative Urine Urobilinogen Normal Ur Leukocyte Esterase Neg Urine WBC (Auto) 2 Urine RBC (Auto) 5 H Assessment & Plan (1) Liver function test abnormality Assessment and Plan: Mild to moderate. Consider due to bacteremia. COnsider biliary disease, but only mild ductal dilatation- likely due to past DEBORAH. REC: antibiotcs, labs, consider MRCP if no source for bacteremia is found. Status: Acute (2) Bacteremia Status: Acute (3) Bronchitis Status: Acute (4) Chr obstructive pulmonary disease w/ acute lower respiratory infxn Status: Acute (5) Diabetes Status: Acute (6) Dyspnea Status: Acute (7) Prophylactic measure Status: Acute
--- NOTE | 2017-08-15 13:27 | CARD ---
APPROVED REPORT EKG Measurement Heart [id number] <Conclusion> Normal sinus rhythm Possible Left atrial enlargement Septal infarct, age undetermined Abnormal ECG
--- NOTE | 2017-08-15 16:00 | CP.PCM.CON ---
History of Present Illness - History of Present Illness History of Present Illness: 81 y/o male with COPD, NIDDM, BPH. Patient went to Er c/o choking sensation that usually happen if mucus is stuck on his throat. He was given Neb Tx and sent home. he was recalled yesterday c/o (+) Bld C/S with Gm neg rods. IV antibiotics started for empiric rx gram neg sepsis Has increased LFT's GI on board PMH: Asthma, COPD, Diabetes, Emphysema (D/C SMOKING 10 YRS AGO 1 PACK PER DAY) , HTN, Hypercholesterolemia, Hyperlipidemia Surgical History: Cholecystectomy - [facility] Procedures CYSTOMETROGRAM (10/07/14) CYSTOSCOPY NEC (10/14/14) ENDOSCOPIC BRONCHIAL BX (01/15/13) INSERT INDWELLING CATH (10/18/14) TRANSURETHRAL PROSTATECTOMY ([place]) (10/14/14) Review of Systems - Constitutional Constitutional: As Per HPI, Anorexia - EENT Eyes: absent: As Per HPI, Blind Spots, Blurred Vision, Change in Vision, Decreased Night Vision, Diplopia, Discharge, Dry Eye, Exophthalmos, Floaters, Irritation, Itchy Eyes, Loss of Peripheral Vision, Pain, Photophobia, Requires Corrective Lenses, Sees Flashes, Spots in Vision, Tunnel Vision, Other Visual Disturbances, Loss of Vision, Other Ears: absent: As Per HPI, Decreased Hearing, Ear Discharge, Ear Pain, Tinnitus, Abnormal Hearing, Disequilibrium, Dizziness, Other Nose/Mouth/Throat: absent: As Per HPI, Epistaxis, Nasal Congestion, Nasal Discharge, Nasal Obstruction, Nasal Trauma, Nose Pain, Post Nasal Drip, Sinus Pain, Sinus Pressure, Bleeding Gums, Change in Voice, Dental Pain, Dry Mouth, Dysphagia, Halitosis, Hoarsness, Lip Swelling, Mouth Lesions, Mouth Pain, Odynophagia, Sore Throat, Throat Swelling, Tongue Swelling, Facial Pain, Neck Pain, Neck Mass, Other - Cardiovascular Cardiovascular: absent: As Per HPI, Acrocyanosis, Chest Pain, Chest Pain at Rest , Chest Pain with Activity, Claudication, Diaphoresis, Dyspnea, Dyspnea on Exertion, Edema, Irregular Heart Rhythm, Pain Radiating to Arm/Neck/Jaw, Leg Edema, Leg Ulcers, Lightheadedness, Orthopnea, Palpitations, Paroxysmal Nocturnal Dyspnea, Pedal Edema, Radiating Pain, Rapid Heart Rate, Slow Heart Rate, Syncope, Other - Respiratory Respiratory: As Per HPI, Cough. absent: Dyspnea, Hemoptysis - Gastrointestinal Gastrointestinal: absent: As Per HPI, Abdominal Pain, Belching, Bloating, Change in Bowel Habits, Change in Stool Character, Coffee Ground Emesis, Constipation, Cramping, Diarrhea, Dyspepsia, Dysphagia, Early Satiety, Excessive Flatus, Fecal Incontinence, Heartburn, Hematemesis, Hematochezia, Loose Stools, Melena, Nausea, Odynophagia, Temesmus, Vomiting, Other - Genitourinary Genitourinary: absent: As Per HPI, Change in Urinary Stream, Difficulty Urinating, Dysuria, Flank Pain, Hematuria, Pyuria, Nocturia, Urinary Incontinence, Urinary Frequency, Urinary Hesitance, Urinary Urgency, Voiding Freq/Small Amts, Freq UTI, Hx Renal/Bladder Calculi, Hx /Renal Surgery, Bladder Distension, Other - Musculoskeletal Musculoskeletal: absent: As Per HPI, Abnormal Gait, Arthralgias, Atrophy, Back Pain, Deformity, Joint Swelling, Limited Range of Motion, Loss of Height, Muscle Cramps, Muscle Weakness, Myalgias, Neck Pain, Numbness, Radiating Pain into Limb, Stiffness, Tingling, Other - Integumentary Integumentary: absent: As Per HPI, Acne, Alopecia, Bleeding Lesions, Change in Hair, Change in Nails, Change in Pigmentation, Changing Lesions, Dry Skin, Erythema, Furuncle, Hirsutism, Lesions, New Lesions, Non-Healing Lesions, Photosensitivity, Pruritus, Rash, Skin Pain, Skin Ulcer, Sores, Striae, Swelling , Unusual Bruising, Wounds, Jaundice, Other - Neurological Neurological: absent: As Per HPI, Abnormal Gait, Abnormal Hearing, Abnormal Movements, Abnormal Speech, Behavioral Changes, Burning Sensations, Confusion, Convulsions, Disequilibrium, Dizziness, Numbness, Focal Weakness, Frequent Falls , Headaches, Lack of Coordination, Loss of Vision, Memory Loss, Paresthesias, Radicular Pain, Restless Legs, Sensory Deficit, Syncope, Tingling, Tremor, Vertigo, Weakness, Other Visual Disturbances, Other - Psychiatric Psychiatric: absent: As Per HPI, Abnormal Sleep Pattern, Anhedonia, Anxiety, Auditory Hallucinations, Behavioral Changes, Change in Appetite, Change in Libido, Confusion, Depression, Difficulty Concentrating, Hallucinations, Homicidal Ideation, Hopelessness, Irritability, Memory Loss, Mood Swings, Panic Attacks, Paranoia, Suicidal Ideation, Visual Hallucinations, Tactile Hallucinations, Other - Endocrine Endocrine: absent: As Per HPI, Change in Body Appearance, Change in Libido, Cold Intolorance, Deepening of Voice, Excessive Sweating, Fatigue, Flushing, Heat Intolorance, Increase in Ring/Shoe/Hat Size, Palpitations, Polydipsia, Polyphagia, Polyuria, Other - Hematologic/Lymphatic Hematologic: absent: As Per HPI, Easy Bleeding, Easy Bruising, Lymphadenopathy, Other Past Patient History - Infectious Disease Hx of Infectious Diseases: None - Past Medical History & Family History Past Medical History?: Yes - Past Social History Smoking Status: Former Smoker - CARDIAC Hx Cardiac Disorders: Yes Hx Hypercholesterolemia: Yes Hx Hypertension: Yes - PULMONARY Hx Respiratory Disorders: Yes Hx Asthma: Yes Hx Chronic Obstructive Pulmonary Disease (COPD): Yes Hx Emphysema: Yes (D/C SMOKING 10 YRS AGO 1 PACK PER DAY) - NEUROLOGICAL Hx Neurological Disorder: No - HEENT Hx HEENT Problems: No - RENAL Hx Chronic Kidney Disease: No - ENDOCRINE/METABOLIC Hx Endocrine Disorders: Yes Hx Diabetes Mellitus Type 2: Yes - HEMATOLOGICAL/ONCOLOGICAL Hx Blood Disorders: No - INTEGUMENTARY Hx Dermatological Problems: No - MUSCULOSKELETAL/RHEUMATOLOGICAL Hx Musculoskeletal Disorders: No Hx Falls: No - GASTROINTESTINAL Hx Gastrointestinal Disorders: No - GENITOURINARY/GYNECOLOGICAL Hx Genitourinary Disorders: Yes (URINARY RETENTION) Hx Prostate Problems: Yes - PSYCHIATRIC Hx Psychophysiologic Disorder: No Hx Substance Use: No - SURGICAL HISTORY Hx Surgeries: Yes Hx Cholecystectomy: Yes - ANESTHESIA Hx Anesthesia: Yes Hx Anesthesia Reactions: No Hx Malignant Hyperthermia: No Has any member of the family had a problem w/ anesthesia?: No Meds Allergies/Adverse Reactions: Allergies Allergy/AdvReac Type Severity Reaction Status Date / Time No Known Allergies Allergy Verified 08/13/17 07:32 - Medications Medications: Current Medications Albuterol Sulfate (Albuterol 0.042% Inhal Mindy (1.25mg/3ml) Ud) 1.25 mg INH RQ4 PRN PRN Reason: Shortness of Breath Last Admin: 08/15/17 15:37 Dose: 1.25 mg Alprazolam (Xanax) 0.25 mg PO TID PRN PRN Reason: Anxiety Stop: 08/22/17 09:29 Enoxaparin Sodium (Lovenox) 30 mg SC Q12 [facility] Last Admin: 08/15/17 09:26 Dose: 30 mg Cefepime HCl (Maxipime Iv 1 Gm Premix) 1 gm in 50 mls @ 100 mls/hr IVPB Q12H [facility] Last Admin: 08/15/17 12:41 Dose: 100 mls/hr Insulin Aspart (Novolog) 0 unit SC ACHS [facility] PRN Reason: Protocol Last Admin: 08/15/17 11:55 Dose: Not Given Fluticasone/Salmeterol (Advair Diskus 500/50) 1 puff INH RQ12 [facility] Last Admin: 08/15/17 09:33 Dose: 1 puff Tamsulosin HCl (Flomax) 0.4 mg PO DAILY [facility] Last Admin: 08/15/17 09:27 Dose: 0.4 mg Tiotropium [place] (Spiriva) 18 mcg INH RQ24 [facility] Last Admin: 08/15/17 11:16 Dose: 18 mcg Physical Exam - Constitutional Appears: Non-toxic, No Acute Distress, Younger Than Stated Age - Head Exam Head Exam: ATRAUMATIC, NORMAL INSPECTION, NORMOCEPHALIC - Eye Exam Eye Exam: EOMI, PERRL. absent: Scleral icterus - ENT Exam ENT Exam: Mucous Membranes Dry, Normal Oropharynx - Neck Exam Neck exam: Negative for: Lymphadenopathy - Respiratory Exam Respiratory Exam: Decreased Breath Sounds, Rhonchi - Cardiovascular Exam Cardiovascular Exam: REGULAR RHYTHM, +S1, +S2 - GI/Abdominal Exam GI & Abdominal Exam: Diminished Bowel Sounds, Distended, Soft. absent: Tenderness - Rectal Exam Rectal Exam: Deferred - Exam Exam: NORMAL INSPECTION - Extremities Exam Extremities exam: Positive for: pedal pulses present. Negative for: calf tenderness, tenderness - Back Exam Back exam: absent: CVA tenderness (L), CVA tenderness (R) - Neurological Exam Neurological exam: Alert, CN II-XII Intact, Oriented x3 - Psychiatric Exam Psychiatric exam: Anxious - Skin Skin Exam: Dry Results - Vital Signs Recent Vital Signs: Last Vital Signs Temp 98.3 F 08/15/17 07:56 Pulse 86 08/15/17 07:56 Resp 20 08/15/17 07:56 BP 133/71 08/15/17 07:56 Pulse Ox 95 08/15/17 07:56 - Labs Result Diagrams: 08/14/17 18:25 08/14/17 18:25 Labs: Laboratory Results - last 24 hr 08/14/17 08/14/17 08/14/17 18:25 18:25 18:25 WBC 12.6 H D RBC 4.59 Hgb 12.9 Hct 39.0 MCV 85.0 MCH 28.1 MCHC 33.0 RDW 14.6 H Plt Count 221 MPV 7.5 Neut % (Auto) 80.6 H Lymph % (Auto) 10.1 L [place] % (Auto) 8.1 Eos % (Auto) 0.8 Baso % (Auto) 0.4 Neut # 10.2 H Lymph # 1.3 [place] # 1.0 H Eos # 0.1 Baso # 0.0 PT 9.7 INR 0.9 APTT 31 pO2 VBG pH VBG pCO2 VBG HCO3 VBG Total CO2 VBG O2 Sat (Calc) VBG Base Excess VBG Potassium Glucose Lactate Sodium 134 Potassium 4.1 Chloride 97 L Carbon Dioxide 28 Anion Gap 12 BUN 26 H Creatinine 1.4 Est GFR ( Amer) 59 Est GFR (Non-Af Amer) 49 POC Glucose (mg/dL) Random Glucose 174 H Hemoglobin A1c Calcium 8.4 L Phosphorus 2.9 Magnesium 2.2 Total Bilirubin 0.5 AST 60 H D ALT 107 H D Alkaline Phosphatase 162 H D Total Protein 7.1 Albumin 3.9 Globulin 3.2 Albumin/Globulin Ratio 1.2 Venous Blood Potassium Urine Color Urine Clarity Urine pH Ur Specific Juda Urine Protein Urine Glucose (UA) Urine Ketones Urine Blood Urine Nitrate Urine Bilirubin Urine Urobilinogen Ur Leukocyte Esterase Urine WBC (Auto) Urine RBC (Auto) 08/14/17 08/14/17 08/14/17 18:28 20:03 21:02 WBC RBC Hgb Hct MCV MCH MCHC RDW Plt Count MPV Neut % (Auto) Lymph % (Auto) [place] % (Auto) Eos % (Auto) Baso % (Auto) Neut # Lymph # [place] # Eos # Baso # PT INR APTT pO2 30 VBG pH 7.39 VBG pCO2 51 VBG HCO3 27.5 VBG Total CO2 32.5 H VBG O2 Sat (Calc) 67.1 H VBG Base Excess 4.7 H VBG Potassium 3.9 Glucose 183 H Lactate 1.9 Sodium 140.0 Potassium Chloride 104.0 Carbon Dioxide Anion Gap BUN Creatinine Est GFR ( Amer) Est GFR (Non-Af Amer) POC Glucose (mg/dL) 119 H Random Glucose Hemoglobin A1c 7.0 H Calcium Phosphorus Magnesium Total Bilirubin AST ALT Alkaline Phosphatase Total Protein Albumin Globulin Albumin/Globulin Ratio Venous Blood Potassium 3.9 Urine Color Urine Clarity Urine pH Ur Specific Juda Urine Protein Urine Glucose (UA) Urine Ketones Urine Blood Urine Nitrate Urine Bilirubin Urine Urobilinogen Ur Leukocyte Esterase Urine WBC (Auto) Urine RBC (Auto) 08/14/17 08/15/17 22:41 06:53 WBC RBC Hgb Hct MCV MCH MCHC RDW Plt Count MPV Neut % (Auto) Lymph % (Auto) [place] % (Auto) Eos % (Auto) Baso % (Auto) Neut # Lymph # [place] # Eos # Baso # PT INR APTT pO2 VBG pH VBG pCO2 VBG HCO3 VBG Total CO2 VBG O2 Sat (Calc) VBG Base Excess VBG Potassium Glucose Lactate Sodium Potassium Chloride Carbon Dioxide Anion Gap BUN Creatinine Est GFR ( Amer) Est GFR (Non-Af Amer) POC Glucose (mg/dL) 107 Random Glucose Hemoglobin A1c Calcium Phosphorus Magnesium Total Bilirubin AST ALT Alkaline Phosphatase Total Protein Albumin Globulin Albumin/Globulin Ratio Venous Blood Potassium Urine Color Yellow Urine Clarity Clear Urine pH 5.0 Ur Specific Juda 1.023 Urine Protein 1+ H Urine Glucose (UA) Normal Urine Ketones Negative Urine Blood 1+ H Urine Nitrate Negative Urine Bilirubin Negative Urine Urobilinogen Normal Ur Leukocyte Esterase Neg Urine WBC (Auto) 2 Urine RBC (Auto) 5 H Assessment & Plan (1) Bacteremia Status: Acute (2) Liver function test abnormality Status: Acute - Assessment and Plan (Free Text) Assessment: gram neg sepsis - source unclear has dilated ducts- consider MRCP gi on board source less likely CXR findings noted- not acute Cont IV antibiotics
[2017-08-15] MEDS ORDERED: guaiFENesin DM 100 mg-10 mg/5 ml UD PO ONE (21:11)
[2017-08-16] MEDS: Cefepime IV 1 gm in Dextrose 1 GM/50 ML BAG IVPB SCH ×3 (01:15→13:55)
[2017-08-16] MEDS ORDERED: guaiFENesin DM 100 mg-10 mg/5 ml UD PO ONE (02:17)
[2017-08-16] MEDS: Albuterol 0.042% Inhal Sol (1.25 mg/3 mL) UD INH PRN ×3 (03:56→20:33)
[2017-08-16] MEDS: (Novolog) Insulin Aspart, Recombinant 100 u/ml 10 ml vial SC SCH ×4 (08:30→21:19)
[2017-08-16 08:37] LABS: HEMOGLOBIN 12.8 g/dL (12.0-18.0); MEAN CELL VOLUME 85.5 fL (80.0-94.0); MEAN CORPUSCULAR HEMOGLOBIN 28.4 pg (27.0-31.0); MEAN CORPUSCULAR HGB CONC 33.2 g/dL (33.0-37.0); MEAN PLATELET VOLUME 7.5 fL (7.2-11.7); RBC 4.53 Mil/uL (4.40-5.90); RED CELL DISTRIBUTION WIDTH 14.9 % (11.5-14.5); WHITE BLOOD COUNT 5.5 K/uL (4.8-10.8)
--- NOTE | 2017-08-16 08:47 | CP.PCM.PN ---
Subjective - Date & Time of Evaluation Date of Evaluation: 08/16/16 Time of Evaluation: 08:30 - Subjective Subjective: pt no complain exc cough. No CP, no SOB, no edema, (+)_ cough w/ white mucus Objective - Vital Signs/Intake and Output Vital Signs (last 24 hours): Temp Pulse Resp BP Pulse Ox 97.5 F L 90 20 108/64 97 08/15/17 23:21 08/15/17 23:21 08/15/17 23:21 08/15/17 23:21 08/15/17 23:21 Intake and Output: 08/16/17 08/16/17 06:59 18:59 Intake Total 300 350 Output Total 400 Balance -100 350 - Medications Medications: Current Medications Acetaminophen (Tylenol 325mg Tab) 650 mg PO TID PRN PRN Reason: pain Last Admin: 08/15/17 16:30 Dose: 650 mg Albuterol Sulfate (Albuterol 0.042% Inhal Mindy (1.25mg/3ml) Ud) 1.25 mg INH RQ4 PRN PRN Reason: Shortness of Breath Last Admin: 08/16/17 03:56 Dose: 1.25 mg Enoxaparin Sodium (Lovenox) 30 mg SC Q12 [facility] Last Admin: 08/15/17 21:22 Dose: 30 mg Cefepime HCl (Maxipime Iv 1 Gm Premix) 1 gm in 50 mls @ 100 mls/hr IVPB Q12H [facility] Last Admin: 08/16/17 01:15 Dose: 100 mls/hr Insulin Aspart (Novolog) 0 unit SC ACHS [facility] PRN Reason: Protocol Last Admin: 08/16/17 08:30 Dose: Not Given Promethazine HCl/Dextromethorphan (Phenergan Dm Syrup) 10 ml PO Q8H PRN PRN Reason: Cough Fluticasone/Salmeterol (Advair Diskus 500/50) 1 puff INH RQ12 [facility] Last Admin: 08/15/17 20:01 Dose: 1 puff Tamsulosin HCl (Flomax) 0.4 mg PO DAILY [facility] Last Admin: 08/15/17 09:27 Dose: 0.4 mg Tiotropium [place] (Spiriva) 18 mcg INH RQ24 [facility] Last Admin: 08/15/17 11:16 Dose: 18 mcg - Labs Labs: 08/16/17 08:31 08/14/17 18:25 PT 9.7 SECONDS (9.7-12.2) 08/14/17 18:25 INR 0.9 08/14/17 18:25 APTT 31 SECONDS (21-34) 08/14/17 18:25 - Constitutional Appears: No Acute Distress - Eye Exam Eye Exam: Normal appearance - ENT Exam ENT Exam: Mucous Membranes Moist - Neck Exam Neck Exam: Full ROM. absent: Lymphadenopathy, Thyromegaly - Respiratory Exam Respiratory Exam: Decreased Breath Sounds, Wheezes. absent: Rales, Rhonchi - Cardiovascular Exam Cardiovascular Exam: REGULAR RHYTHM, +S1, +S2. absent: Gallop, JVD - GI/Abdominal Exam GI & Abdominal Exam: Soft. absent: Tenderness, Mass - Extremities Exam Extremities Exam: Full ROM, Normal Capillary Refill. absent: Calf Tenderness, Joint Swelling, Pedal Edema Assessment and Plan - Assessment and Plan (Free Text) Assessment: GM neg Bacteremia; COPD, mild Exac, NIDDM, BPh Cont meds, Stop Xanax and change to Promethazine supportive car; Discharge as per ID
[2017-08-16 09:10] LABS: ALB/GLOB RATIO 1.2 (1.0-2.1); ALBUMIN 3.7 g/dL (3.5-5.0); ALT/SGPT 74 U/L (21-72); AST/SGOT 34 U/L (17-59); BLOOD UREA NITROGEN 15 mg/dL (9-20); CALCIUM 8.1 mg/dl (8.6-10.4); GFR AFRICAN-AMERICAN > 60; GFR NON-AFRICAN AMERICAN 58
[2017-08-16] MEDS: Fluticasone-Salmeterol 500-50mcg Diskus INH SCH ×2 (09:19→20:33)
[2017-08-16] MEDS: Tiotropium 18 mcg Cap For Inhalation INH SCH (09:20)
[2017-08-16 09:22] LABS: HEPATITIS B SURFACE AG NEGATIVE (NEGATIVE)
[2017-08-16 09:27] LABS: HEPATITIS A IGM NEGATIVE (NEGATIVE); HEPATITIS B CORE AB Negative (NEGATIVE)
[2017-08-16 09:39] LABS: HEPATITIS C ANTIBODY Negative (NEGATIVE)
[2017-08-16] MEDS: Enoxaparin 30 mg Syringe SC SCH ×2 (09:39→21:16)
[2017-08-16] MEDS: Promethazine DM 12.5 mg-30 mg/10 ml Syrup PO SCH ×2 (10:00→17:43)
--- NOTE | 2017-08-16 11:29 | CP.PCM.PN ---
Subjective - Date & Time of Evaluation Date of Evaluation: 08/16/17 Time of Evaluation: 11:27 - Subjective Subjective: CC: E Coli bacteremia Denies abdominal pain, vomiting, chills, fevers. Tolerating diet. E Coli bacteremia without source. S/P cholecystectomy, CBD dilated. Lfts normalizing. Antibiotics managed by ID Objective - Vital Signs/Intake and Output Vital Signs (last 24 hours): Temp Pulse Resp BP Pulse Ox 98.0 F 106 H 20 133/73 98 08/16/17 08:00 08/16/17 08:00 08/16/17 08:00 08/16/17 08:00 08/16/17 08:00 Intake and Output: 08/16/17 08/16/17 06:59 18:59 Intake Total 300 350 Output Total 400 Balance -100 350 - Medications Medications: Current Medications Acetaminophen (Tylenol 325mg Tab) 650 mg PO TID PRN PRN Reason: pain Last Admin: 08/15/17 16:30 Dose: 650 mg Albuterol Sulfate (Albuterol 0.042% Inhal Mindy (1.25mg/3ml) Ud) 1.25 mg INH RQ4 PRN PRN Reason: Shortness of Breath Last Admin: 08/16/17 03:56 Dose: 1.25 mg Enoxaparin Sodium (Lovenox) 30 mg SC Q12 [facility] Last Admin: 08/16/17 09:39 Dose: 30 mg Cefepime HCl (Maxipime Iv 1 Gm Premix) 1 gm in 50 mls @ 100 mls/hr IVPB Q12H [facility] Last Admin: 08/16/17 01:15 Dose: 100 mls/hr Insulin Aspart (Novolog) 0 unit SC ACHS [facility] PRN Reason: Protocol Last Admin: 08/16/17 08:30 Dose: Not Given Promethazine HCl/Dextromethorphan (Phenergan Dm Syrup) 10 ml PO Q8H [facility] Last Admin: 08/16/17 10:00 Dose: 10 ml Fluticasone/Salmeterol (Advair Diskus 500/50) 1 puff INH RQ12 [facility] Last Admin: 08/16/17 09:19 Dose: 1 puff Tamsulosin HCl (Flomax) 0.4 mg PO DAILY [facility] Last Admin: 08/16/17 09:39 Dose: 0.4 mg Tiotropium [place] (Spiriva) 18 mcg INH RQ24 [facility] Last Admin: 08/16/17 09:20 Dose: 18 mcg - Labs Labs: 08/16/17 08:31 08/16/17 08:31 PT 9.7 SECONDS (9.7-12.2) 08/14/17 18:25 INR 0.9 08/14/17 18:25 APTT 31 SECONDS (21-34) 08/14/17 18:25 - Constitutional Appears: Well, No Acute Distress - Head Exam Head Exam: NORMOCEPHALIC - Eye Exam Eye Exam: absent: Scleral icterus - Respiratory Exam Respiratory Exam: Decreased Breath Sounds, NORMAL BREATHING PATTERN - Cardiovascular Exam Cardiovascular Exam: REGULAR RHYTHM - GI/Abdominal Exam GI & Abdominal Exam: Soft. absent: Tenderness, Mass, Organomegaly Assessment and Plan (1) Bacteremia Assessment & Plan: E Coli. R/O Biliary source Clinically responding to conservative treatment Rec: Antibiotics per ID Status: Acute (2) Liver function test abnormality Assessment & Plan: R/O CBD stone passage. CBD Dilated (Post cholecystectomy). Improving with Cefepime. Rec: MRCP Status: Acute (3) Chronic obstructive lung disease Assessment & Plan: Managed by Dr Rolle. Seems stable Status: Acute
--- NOTE | 2017-08-16 14:32 | MRI ---
PROCEDURE: Magnetic Resonance Cholangiopancreatography HISTORY: COMPARISON: None available. TECHNIQUE: Multiplanar, multisequence MR images of the abdomen were obtained, including heavily T2 weighted MRCP images of the biliary system. Rotating maximum intensity projection images of the biliary system were generated. FINDINGS: MRCP: The common bile duct measures 10 mm in diameter. Questionable small filling defect seen in the proximal common hepatic duct on series 4, image 19 and 1 T. as this is not demonstrated on any of the other sequences it is unlikely to reflect an actual filling defect. No other filling defect is seen elsewhere. There is rapid eccentric tapering of the distal common bile duct raising suspicion for a neoplasm or stricture. Evaluation with ERCP is suggested. LIVER: Normal size and contour. There is focal high signal seen in the posterior right hepatic lobe (series 6, image 42 and 43). This corresponds to high signal on series 4, image 11. Suspicious for a neoplastic process. There is 2nd area of focal high signal seen just beneath the diaphragm in the right lobe, on series 4, image 13 and 14. This is also seen on series 5, image 8 and 9. This does not correspond to any focal diffusion restriction. Further evaluation with multiphasic contrast enhanced computed tomography is advised. Alternatively, gadolinium enhanced magnetic resonance imaging could be pursued. No intrahepatic biliary ductal dilatation is noted. GALLBLADDER: Status post cholecystectomy SPLEEN: Unremarkable. PANCREAS: No mass or ductal dilatation ADRENALS: Unremarkable. KIDNEYS: Unremarkable. AORTA: No aneurysm. ASCITES: None. OTHER FINDINGS: None. IMPRESSION: Dilated common bile duct up to 10 mm without associated intrahepatic biliary ductal dilatation. Status post cholecystectomy. This common bile duct dilatation may be related to cholecystectomy and age related ectasia. However, eccentric short segment tapering of the distal common bile duct raises some suspicion for neoplasm or stricture. Evaluation with ERCP is suggested. Two areas of abnormal high T2 signal 1 of which corresponds to focal diffusion restriction in the right hepatic lobe. Further evaluation with contrast enhancement is suggested, either with multiphasic contrast-enhanced CT or gadolinium enhanced magnetic resonance imaging.
--- NOTE | 2017-08-16 18:36 | CP.PCM.PN ---
Subjective - Date & Time of Evaluation Date of Evaluation: 08/16/17 Time of Evaluation: 07:00 - Subjective Subjective: Denies abdominal pain, vomiting, chills, fevers. Tolerating diet. E Coli bacteremia without source. S/P cholecystectomy, CBD dilated. Lfts normalizing. Objective - Vital Signs/Intake and Output Vital Signs (last 24 hours): Temp Pulse Resp BP Pulse Ox 98.0 F 95 H 20 112/67 94 L 08/16/17 15:00 08/16/17 16:29 08/16/17 15:00 08/16/17 16:29 08/16/17 16:29 Intake and Output: 08/16/17 08/16/17 06:59 18:59 Intake Total 300 600 Output Total 400 Balance -100 600 - Medications Medications: Current Medications Acetaminophen (Tylenol 325mg Tab) 650 mg PO TID PRN PRN Reason: pain Last Admin: 08/16/17 15:55 Dose: 650 mg Albuterol Sulfate (Albuterol 0.042% Inhal Mindy (1.25mg/3ml) Ud) 1.25 mg INH RQ4 PRN PRN Reason: Shortness of Breath Last Admin: 08/16/17 16:12 Dose: 1.25 mg Enoxaparin Sodium (Lovenox) 30 mg SC Q12 [facility] Last Admin: 08/16/17 09:39 Dose: 30 mg Cefepime HCl (Maxipime Iv 1 Gm Premix) 1 gm in 50 mls @ 100 mls/hr IVPB Q12H [facility] Last Admin: 08/16/17 13:55 Dose: 100 mls/hr Insulin Aspart (Novolog) 0 unit SC ACHS [facility] PRN Reason: Protocol Last Admin: 08/16/17 17:08 Dose: Not Given Promethazine HCl/Dextromethorphan (Phenergan Dm Syrup) 10 ml PO Q8H [facility] Last Admin: 08/16/17 17:43 Dose: 10 ml Fluticasone/Salmeterol (Advair Diskus 500/50) 1 puff INH RQ12 [facility] Last Admin: 08/16/17 09:19 Dose: 1 puff Tamsulosin HCl (Flomax) 0.4 mg PO DAILY [facility] Last Admin: 08/16/17 09:39 Dose: 0.4 mg Tiotropium [place] (Spiriva) 18 mcg INH RQ24 [facility] Last Admin: 08/16/17 09:20 Dose: 18 mcg - Labs Labs: 08/16/17 08:31 08/16/17 08:31 PT 9.7 SECONDS (9.7-12.2) 08/14/17 18:25 INR 0.9 08/14/17 18:25 APTT 31 SECONDS (21-34) 08/14/17 18:25 - Constitutional Appears: Non-toxic, Chronically Ill - Head Exam Head Exam: NORMOCEPHALIC - Eye Exam Eye Exam: PERRL - ENT Exam ENT Exam: Mucous Membranes Dry - Neck Exam Neck Exam: absent: Lymphadenopathy - Respiratory Exam Respiratory Exam: Decreased Breath Sounds - Cardiovascular Exam Cardiovascular Exam: REGULAR RHYTHM - GI/Abdominal Exam GI & Abdominal Exam: Distended, Soft - Rectal Exam Rectal Exam: Deferred - Exam Exam: NORMAL INSPECTION Assessment and Plan (1) Bacteremia Status: Acute (2) Liver function test abnormality Status: Acute - Assessment and Plan (Free Text) Plan: cont iv rx 14 days mrcp
[2017-08-17] MEDS: Cefepime IV 1 gm in Dextrose 1 GM/50 ML BAG IVPB SCH ×2 (00:12→12:57)
[2017-08-17] MEDS: Promethazine DM 12.5 mg-30 mg/10 ml Syrup PO SCH ×3 (00:16→17:26)
[2017-08-17] MEDS: (Novolog) Insulin Aspart, Recombinant 100 u/ml 10 ml vial SC SCH ×4 (07:51→21:46)
[2017-08-17] MEDS: Albuterol 0.042% Inhal Sol (1.25 mg/3 mL) UD INH PRN ×3 (08:38→20:19)
[2017-08-17] MEDS: Tiotropium 18 mcg Cap For Inhalation INH SCH (08:39)
[2017-08-17] MEDS: Fluticasone-Salmeterol 500-50mcg Diskus INH SCH ×2 (08:39→20:19)
--- NOTE | 2017-08-17 09:20 | CP.PCM.PN ---
Subjective - Date & Time of Evaluation Date of Evaluation: 08/17/16 Time of Evaluation: 08:45 - Subjective Subjective: Pt no complain of CP, no SOB at rest, (+) dry coughh Express wish to go home Objective - Vital Signs/Intake and Output Vital Signs (last 24 hours): Temp Pulse Resp BP Pulse Ox 97.9 F 98 H 20 122/71 97 08/17/17 08:15 08/17/17 08:15 08/17/17 08:15 08/17/17 08:15 08/17/17 08:15 Intake and Output: 08/17/17 08/17/17 06:59 18:59 Intake Total 500 Output Total 400 Balance 100 - Medications Medications: Current Medications Acetaminophen (Tylenol 325mg Tab) 650 mg PO TID PRN PRN Reason: pain Last Admin: 08/16/17 15:55 Dose: 650 mg Albuterol Sulfate (Albuterol 0.042% Inhal Mindy (1.25mg/3ml) Ud) 1.25 mg INH RQ4 PRN PRN Reason: Shortness of Breath Last Admin: 08/17/17 08:38 Dose: 1.25 mg Enoxaparin Sodium (Lovenox) 30 mg SC Q12 [facility] Last Admin: 08/16/17 21:16 Dose: 30 mg Cefepime HCl (Maxipime Iv 1 Gm Premix) 1 gm in 50 mls @ 100 mls/hr IVPB Q12H [facility] Last Admin: 08/17/17 00:12 Dose: 100 mls/hr Insulin Aspart (Novolog) 0 unit SC ACHS [facility] PRN Reason: Protocol Last Admin: 08/17/17 07:51 Dose: Not Given Promethazine HCl/Dextromethorphan (Phenergan Dm Syrup) 10 ml PO Q8H [facility] Last Admin: 08/17/17 00:16 Dose: 10 ml Fluticasone/Salmeterol (Advair Diskus 500/50) 1 puff INH RQ12 [facility] Last Admin: 08/17/17 08:39 Dose: 1 puff Tamsulosin HCl (Flomax) 0.4 mg PO DAILY [facility] Last Admin: 08/16/17 09:39 Dose: 0.4 mg Tiotropium [place] (Spiriva) 18 mcg INH RQ24 [facility] Last Admin: 08/17/17 08:39 Dose: 18 mcg - Labs Labs: 08/16/17 08:31 08/16/17 08:31 PT 9.7 SECONDS (9.7-12.2) 08/14/17 18:25 INR 0.9 08/14/17 18:25 APTT 31 SECONDS (21-34) 08/14/17 18:25 - Constitutional Appears: No Acute Distress - Eye Exam Eye Exam: Normal appearance - ENT Exam ENT Exam: Mucous Membranes Moist - Respiratory Exam Respiratory Exam: Clear to Ausculation Bilateral. absent: Rales, Rhonchi, Wheezes - Cardiovascular Exam Cardiovascular Exam: REGULAR RHYTHM, +S1, +S2. absent: Gallop, JVD - GI/Abdominal Exam GI & Abdominal Exam: Soft. absent: Tenderness, Mass - Extremities Exam Extremities Exam: Full ROM, Normal Capillary Refill. absent: Calf Tenderness, Joint Swelling, Pedal Edema Assessment and Plan - Assessment and Plan (Free Text) Assessment: Gram neg Bacteremia Dilated Bile duct COPD, NIDDM Cont meds Discuss MRCP result w/ daughter/ patient at bed side Await GI opinion about ERCP
[2017-08-17] MEDS: Enoxaparin 30 mg Syringe SC SCH ×2 (09:22→22:03)
[2017-08-17] MEDS ORDERED: Influenza Vaccine 60 mcg/0.5 mL SYR (4YR UP) IM ONE (10:00)
--- NOTE | 2017-08-17 10:22 | CP.PCM.CON ---
<Lena Etienne - Last Filed: 08/17/17 12:13> History of Present Illness - History of Present Illness History of Present Illness: GI Fellow PGY4 Consult Note This is a 81yM with pmhx of Emphysema, COPD, DM, HLD presenting to ER after call back for positive blood cx gram negative rods from 08/13/17. Pt initially presented to ER on 08/13/17 for complaints of SOB/productive cough for 2 weeks and was diagnosed with acute lower respiratory infection and COPD, pt was discharged from ER but called back on 08/14/17 for positive blood cx. On admission pt was found to have elevated LFTs and bacteremia and GI was consulted for possible biliary source of infection. Pt underwent an MRCP showing CBD 10mm, tapering of distal CBD neoplasm vs stricture. Pt denies any abdominal pain, nausea, vomiting, fevers or chills. Pt denies any unintentional weightloss, jaundice, or prior hx of liver disease. Pt reports hx of drinking socially when he was younger but denies heavy alcohol use, pt does have a hx of tobacco use smoking 1ppd since age 16 to 71. Pt denies any family hx of pancreatic cancer or liver disease. Results of MRCP and plan for CT Pancreas and ERCP were discussed with patient and pt's daughter at bedside. Pt endorses 2 prior colonoscopy's last one was 5yrs ago that was normal per pt, no prior EGD. ROS: A 12pt ROS was negative except as above. PmHx: As stated in HPI PsHx: Cholecystectomy 5 yrs ago SHx: Hx of smoking 1ppd for 55yrs, social alcohol when younger, no drug use FHX: Denies colon or pancreatic cancer Past Patient History - Infectious Disease Hx of Infectious Diseases: None - Past Medical History & Family History Past Medical History?: Yes - Past Social History Smoking Status: Former Smoker - CARDIAC Hx Cardiac Disorders: Yes Hx Hypercholesterolemia: Yes Hx Hypertension: Yes - PULMONARY Hx Chronic Obstructive Pulmonary Disease (COPD): Yes - NEUROLOGICAL Hx Neurological Disorder: No - HEENT Hx HEENT Problems: No - RENAL Hx Chronic Kidney Disease: No - ENDOCRINE/METABOLIC Hx Diabetes Mellitus Type 2: Yes - HEMATOLOGICAL/ONCOLOGICAL Hx Blood Disorders: No - INTEGUMENTARY Hx Dermatological Problems: No - MUSCULOSKELETAL/RHEUMATOLOGICAL Hx Musculoskeletal Disorders: No Hx Falls: No - GASTROINTESTINAL Hx Gastrointestinal Disorders: No - GENITOURINARY/GYNECOLOGICAL Hx Genitourinary Disorders: Yes (URINARY RETENTION) Hx Prostate Problems: Yes - PSYCHIATRIC Hx Psychophysiologic Disorder: No Hx Substance Use: No - SURGICAL HISTORY Hx Surgeries: Yes Hx Cholecystectomy: Yes - ANESTHESIA Hx Anesthesia: Yes Hx Anesthesia Reactions: No Hx Malignant Hyperthermia: No Has any member of the family had a problem w/ anesthesia?: No Meds Allergies/Adverse Reactions: Allergies Allergy/AdvReac Type Severity Reaction Status Date / Time No Known Allergies Allergy Verified 08/13/17 07:32 - Medications Medications: Current Medications Acetaminophen (Tylenol 325mg Tab) 650 mg PO TID PRN PRN Reason: pain Last Admin: 08/16/17 15:55 Dose: 650 mg Albuterol Sulfate (Albuterol 0.042% Inhal Mindy (1.25mg/3ml) Ud) 1.25 mg INH RQ4 PRN PRN Reason: Shortness of Breath Last Admin: 08/17/17 08:38 Dose: 1.25 mg Enoxaparin Sodium (Lovenox) 30 mg SC Q12 [facility] Last Admin: 08/17/17 09:22 Dose: 30 mg Cefepime HCl (Maxipime Iv 1 Gm Premix) 1 gm in 50 mls @ 100 mls/hr IVPB Q12H [facility] Last Admin: 08/17/17 00:12 Dose: 100 mls/hr Insulin Aspart (Novolog) 0 unit SC ACHS [facility] PRN Reason: Protocol Last Admin: 08/17/17 07:51 Dose: Not Given Promethazine HCl/Dextromethorphan (Phenergan Dm Syrup) 10 ml PO Q8H [facility] Last Admin: 08/17/17 09:23 Dose: 10 ml Fluticasone/Salmeterol (Advair Diskus 500/50) 1 puff INH RQ12 [facility] Last Admin: 08/17/17 08:39 Dose: 1 puff Tamsulosin HCl (Flomax) 0.4 mg PO DAILY [facility] Last Admin: 08/17/17 09:22 Dose: 0.4 mg Tiotropium [place] (Spiriva) 18 mcg INH RQ24 [facility] Last Admin: 08/17/17 08:39 Dose: 18 mcg Physical Exam - Constitutional Appears: Non-toxic, No Acute Distress - Head Exam Head Exam: ATRAUMATIC, NORMAL INSPECTION, NORMOCEPHALIC - Eye Exam Eye Exam: EOMI, Normal appearance, PERRL. absent: Scleral icterus Pupil Exam: PERRL - ENT Exam ENT Exam: Mucous Membranes Moist, Normal Exam - Neck Exam Neck exam: Positive for: Full Rom, Normal Inspection - Respiratory Exam Respiratory Exam: Clear to Auscultation Bilateral, NORMAL BREATHING PATTERN - Cardiovascular Exam Cardiovascular Exam: REGULAR RHYTHM, +S1, +S2 - GI/Abdominal Exam GI & Abdominal Exam: Normal Bowel Sounds, Soft. absent: Diminished Bowel Sounds , Distended, Guarding, Organomegaly, Tenderness - Rectal Exam Rectal Exam: Deferred - Extremities Exam Extremities exam: Positive for: normal inspection - Back Exam Back exam: NORMAL INSPECTION - Neurological Exam Neurological exam: Alert, Oriented x3 - Psychiatric Exam Psychiatric exam: Normal Affect, Normal Mood - Skin Skin Exam: Dry, Intact, Normal Color, Warm Results - Vital Signs Recent Vital Signs: Last Vital Signs Temp 97.9 F 08/17/17 08:15 Pulse 98 H 08/17/17 08:15 Resp 20 08/17/17 08:15 BP 122/71 08/17/17 08:15 Pulse Ox 97 08/17/17 08:15 - Labs Result Diagrams: 08/16/17 08:31 08/16/17 08:31 Labs: Laboratory Results - last 24 hr 08/16/17 08/16/17 08/16/17 11:20 16:42 21:13 POC Glucose (mg/dL) 122 H 128 H 143 H 08/17/17 07:26 POC Glucose (mg/dL) 109 Assessment & Plan - Assessment and Plan (Free Text) Assessment: This is a 81yM presenting with SOB, cough and found to have gram negative bacteremia. 1. CBD distal tapering stricture vs neoplasm 2. Gram negative bacteremia-Ecoli possible biliary source 3. Elevated LFTs 4. Hx of COPD/Emphysema Plan: -Continue supportive care -LFTs trending down, continue to monitor, hepatitis panel negative, will order autoimmune workup for completion, IgG4 -MRCP concerning for CBD distal tapering stricture vs neoplasm, will order CT Pancreatic Protocol -Gram negative bacteremia possible biliary source, UA neg, CXray negative, afebrile, no leukocytosis, no abdominal pain -Continue IV abx per ID -NPO after midnight -Plan for EUS/ERCP tomorrow, consent signed, discussed with pt and his daughter at bedside -Will continue to follow closely <Jorge,Geoffrey Y - Last Filed: 08/17/17 13:59> Meds - Medications Medications: Current Medications Acetaminophen (Tylenol 325mg Tab) 650 mg PO TID PRN PRN Reason: pain Last Admin: 08/16/17 15:55 Dose: 650 mg Albuterol Sulfate (Albuterol 0.042% Inhal Mindy (1.25mg/3ml) Ud) 1.25 mg INH RQ4 PRN PRN Reason: Shortness of Breath Last Admin: 08/17/17 11:43 Dose: 1.25 mg Enoxaparin Sodium (Lovenox) 30 mg SC Q12 [facility] Last Admin: 08/17/17 09:22 Dose: 30 mg Cefepime HCl (Maxipime Iv 1 Gm Premix) 1 gm in 50 mls @ 100 mls/hr IVPB Q12H [facility] Last Admin: 08/17/17 12:57 Dose: 100 mls/hr Insulin Aspart (Novolog) 0 unit SC ACHS [facility] PRN Reason: Protocol Last Admin: 08/17/17 11:55 Dose: Not Given Promethazine HCl/Dextromethorphan (Phenergan Dm Syrup) 10 ml PO Q8H [facility] Last Admin: 08/17/17 09:23 Dose: 10 ml Fluticasone/Salmeterol (Advair Diskus 500/50) 1 puff INH RQ12 [facility] Last Admin: 08/17/17 08:39 Dose: 1 puff Tamsulosin HCl (Flomax) 0.4 mg PO DAILY [facility] Last Admin: 08/17/17 09:22 Dose: 0.4 mg Tiotropium [place] (Spiriva) 18 mcg INH RQ24 [facility] Last Admin: 08/17/17 08:39 Dose: 18 mcg Results - Vital Signs Recent Vital Signs: Last Vital Signs Temp 97.9 F 08/17/17 08:15 Pulse 98 H 08/17/17 08:15 Resp 20 08/17/17 08:15 BP 122/71 08/17/17 08:15 Pulse Ox 97 08/17/17 08:15 - Labs Result Diagrams: 08/16/17 08:31 08/16/17 08:31 Labs: Laboratory Results - last 24 hr 08/16/17 08/16/17 08/16/17 11:20 16:42 21:13 POC Glucose (mg/dL) 122 H 128 H 143 H IgG 08/17/17 08/17/17 07:26 12:05 POC Glucose (mg/dL) 109 IgG 842.5 Attending/Attestation - Attestation I have personally seen and examined this patient.: Yes I have fully participated in the care of the patient.: Yes I have reviewed all pertinent clinical information: Yes Notes (Text): 08/17/17 13:51 I have seen and examined patient with GI fellow. Agree with above documentation with the following additions. In brief, this is an 81 year old male with history of COPD, DM, hyperlipidemia who initially presented to hospital with complaint of progressive dyspnea, was seen in ER and discharged with therapy. He was called to return to the hospital after it was noted his blood cultures were positive. He is seen currently resting in bed comfortably and denies abdominal pain, nausea, vomiting, diarrhea, fever/chills, weight loss , rectal bleeding, jaundice, or pruritis. He had a colonoscopy 10 years ago which was normal as per patient. COPD DM Hyperlipidemia Bacteremia - ecoli Transaminitis MRCP reviewed by me showing dilated CBD of 1 cm along with irregular distal tapering of duct. Also noted are two focal regions of abnormal intensity in the right hepatic lobe. - Diet as tolerated - LFTs stable, continue to monitor - Obtain autoimmune panel - Continue with antibiotic therapy as per ID - Given bacteremia of unclear source along with abnormal MR imaging, plan for EUS +/- ERCP tomorrow for further diagnosis. NPO after midnight. - Will continue to monitor patient clinical course
[2017-08-17] MEDS ORDERED: Iohexol 240 (50 ml) PO ONE (11:30)
[2017-08-17] MEDS ORDERED: Iodixanol 320 MG/ML 100 ML BOTTLE IV ONE (13:26)
--- NOTE | 2017-08-17 15:08 | CT ---
PROCEDURE: CT Abdomen and Pelvis with contrast HISTORY: CBD Stricture COMPARISON: MRCP performed 08/16/17, abdominal duplex ultrasound performed 08/14/17 TECHNIQUE: Contrast dose: 100 mL Visipaque Radiation dose: Total exam DLP = 649.99 MGy-cm. This CT exam was performed using one or more of the following dose reduction techniques: Automated exposure control, adjustment of the mA and/or kV according to patient size, and/or use of iterative reconstruction technique. FINDINGS: LOWER THORAX: Bronchiectasis. Mild bibasilar atelectasis. No visible focal consolidation, pleural effusion, or pneumothorax. Small hiatal hernia/distal esophageal wall thickening. LIVER: Too small to characterize hypodensities within the hepatic dome. GALLBLADDER AND BILE DUCTS: Cholecystectomy clips. Dilated common bile duct measures approximately 12 mm in diameter. PANCREAS: Unremarkable. SPLEEN: 9 mm probable splenule. Otherwise unremarkable. ADRENALS: Unremarkable. KIDNEYS AND URETERS: The kidneys enhance symmetrically. No hydronephrosis or obstructing calculus identified. Too small to characterize right renal hypodensity, statistically likely cyst. 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 Aneurysmal dilatation measures approximately 3.0 cm (AP) x 2.4 cm (transverse) by 5.2 cm (cc). BOWEL: Stomach is nondistended. Lack of oral contrast limits evaluation for bowel pathology. Included upper abdominal bowel loops appear within normal limits of caliber without evidence of obstruction. Proximal duodenal diverticulum. PERITONEUM: No significant free fluid. No definite free air. LYMPH NODES: No bulky adenopathy identified. BONES: Degenerative changes. OTHER FINDINGS: None. IMPRESSION: Cholecystectomy clips. Dilated common bile duct measures approximately 12 mm in diameter. 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 Aneurysmal dilatation measures approximately 3.0 cm (AP) x 2.4 cm (transverse) by 5.2 cm (cc). Too small to characterize hypodensities within the hepatic dome.
[2017-08-18] MEDS: Cefepime IV 1 gm in Dextrose 1 GM/50 ML BAG IVPB SCH ×2 (01:39→14:01)
[2017-08-18] MEDS: Promethazine DM 12.5 mg-30 mg/10 ml Syrup PO SCH ×3 (01:40→17:39)
[2017-08-18 06:44] LABS: PROTHROMBIN TIME 10.9 SECONDS (9.7-12.2)
[2017-08-18 07:19] LABS: BASO # 0.1 K/uL (0.0-0.2); BASO % 1.1 % (0.0-2.0); EOS # 0.6 K/uL (0.0-0.7); EOS % 8.7 % (0.0-4.0); HEMOGLOBIN 11.9 g/dL (12.0-18.0); LYMPH # 1.3 K/uL (1.0-4.3); MEAN CELL VOLUME 85.7 fL (80.0-94.0); MEAN CORPUSCULAR HEMOGLOBIN 28.8 pg (27.0-31.0); MEAN CORPUSCULAR HGB CONC 33.6 g/dL (33.0-37.0); MEAN PLATELET VOLUME 7.2 fL (7.2-11.7); MONO # 0.6 K/uL (0.0-0.8); MONO % 9.6 % (0.0-10.0); NEUT # 3.9 K/uL (1.8-7.0); NEUT % 60.6 % (50.0-75.0); NRBC % 0.1 % (0.0-2.0); RBC 4.13 Mil/uL (4.40-5.90); RED CELL DISTRIBUTION WIDTH 14.7 % (11.5-14.5); WHITE BLOOD COUNT 6.4 K/uL (4.8-10.8)
[2017-08-18] MEDS: (Novolog) Insulin Aspart, Recombinant 100 u/ml 10 ml vial SC SCH ×4 (07:52→22:00)
[2017-08-18] MEDS: Fluticasone-Salmeterol 500-50mcg Diskus INH SCH ×2 (08:04→21:36)
[2017-08-18] MEDS: Tiotropium 18 mcg Cap For Inhalation INH SCH (08:04)
[2017-08-18] MEDS: Albuterol 0.042% Inhal Sol (1.25 mg/3 mL) UD INH PRN ×3 (08:04→21:37)
--- NOTE | 2017-08-18 08:16 | CP.PCM.PN ---
Subjective - Date & Time of Evaluation Date of Evaluation: 08/18/16 Time of Evaluation: 08:02 - Subjective Subjective: Pt no complain of CP,no SOB, no palpitation, no N/V had pancreatic CT (+) stricture vs neoplastic; (+) AAA w/ thrombus For ERCP today; Repeat blood C/S negatie Objective - Vital Signs/Intake and Output Vital Signs (last 24 hours): Temp Pulse Resp BP Pulse Ox 98.2 F 75 20 112/67 97 08/18/17 07:55 08/18/17 07:55 08/18/17 07:55 08/18/17 07:55 08/18/17 07:55 Intake and Output: 08/18/17 08/18/17 06:59 18:59 Intake Total 580 Balance 580 - Medications Medications: Current Medications Acetaminophen (Tylenol 325mg Tab) 650 mg PO TID PRN PRN Reason: pain Last Admin: 08/16/17 15:55 Dose: 650 mg Albuterol Sulfate (Albuterol 0.042% Inhal [place] (1.25mg/3ml) Ud) 1.25 mg INH RQ4 PRN PRN Reason: Shortness of Breath Last Admin: 08/18/17 08:04 Dose: 1.25 mg Enoxaparin Sodium (Lovenox) 30 mg SC Q12 [facility] Last Admin: 08/17/17 22:03 Dose: 30 mg Cefepime HCl (Maxipime Iv 1 Gm Premix) 1 gm in 50 mls @ 100 mls/hr IVPB Q12H [facility] Last Admin: 08/18/17 01:39 Dose: 100 mls/hr Insulin Aspart (Novolog) 0 unit SC ACHS [facility] PRN Reason: Protocol Last Admin: 08/18/17 07:52 Dose: Not Given Promethazine HCl/Dextromethorphan (Phenergan Dm Syrup) 10 ml PO Q8H [facility] Last Admin: 08/18/17 01:40 Dose: 10 ml Fluticasone/Salmeterol (Advair Diskus 500/50) 1 puff INH RQ12 [facility] Last Admin: 08/18/17 08:04 Dose: 1 puff Tamsulosin HCl (Flomax) 0.4 mg PO DAILY [facility] Last Admin: 08/17/17 09:22 Dose: 0.4 mg Tiotropium [place] (Spiriva) 18 mcg INH RQ24 [facility] Last Admin: 08/18/17 08:04 Dose: 18 mcg - Labs Labs: 08/18/17 06:16 08/16/17 08:31 PT 10.9 SECONDS (9.7-12.2) 08/18/17 06:16 INR 1.0 08/18/17 06:16 APTT 31 SECONDS (21-34) 08/14/17 18:25 - Constitutional Appears: No Acute Distress - Eye Exam Eye Exam: Normal appearance - ENT Exam ENT Exam: Mucous Membranes Moist - Neck Exam Neck Exam: Full ROM. absent: Lymphadenopathy, Normal Inspection - Respiratory Exam Respiratory Exam: Clear to Ausculation Bilateral. absent: Rales, Rhonchi, Wheezes - Cardiovascular Exam Cardiovascular Exam: REGULAR RHYTHM, +S1, +S2, Murmur. absent: Gallop, JVD - GI/Abdominal Exam GI & Abdominal Exam: Soft. absent: Tenderness, Mass - Extremities Exam Extremities Exam: Full ROM. absent: Calf Tenderness, Joint Swelling, Normal Capillary Refill, Pedal Edema Assessment and Plan - Assessment and Plan (Free Text) Assessment: Gram neg Bacteremia - E coli NODDM, COD, (+) Aortic aneurysm w/ thrombus For ERCP Vascular surgery consult Cont meds/ supportive care
[2017-08-18] MEDS ORDERED: Iohexol 240 (50 ml) ONE (08:19)
[2017-08-18 08:26] LABS: ALB/GLOB RATIO 1.2 (1.0-2.1); ALBUMIN 3.2 g/dL (3.5-5.0); ALT/SGPT 102 U/L (21-72); AST/SGOT 74 U/L (17-59); BLOOD UREA NITROGEN 12 mg/dL (9-20); CALCIUM 7.7 mg/dl (8.6-10.4); GFR AFRICAN-AMERICAN > 60; GFR NON-AFRICAN AMERICAN > 60
[2017-08-18] MEDS ORDERED: Indomethacin 50 MG Suppository PR ONE (08:29)
[2017-08-18] MEDS ORDERED: Lactated Ringer's 1,000 ML IV ONE ×2 (11:49)
[2017-08-18] MEDS ORDERED: Propofol 10 mg/ml Inj (20 ML) ONE (11:54)
[2017-08-18] MEDS ORDERED: Succinylcholine Chloride 20 mg/ml Syr (5 ml) IV ONE (12:28)
--- NOTE | 2017-08-18 12:56 | CP.PCM.CON ---
<DanemickeyKodi sprague - Last Filed: 08/18/17 12:56> Past Patient History - Infectious Disease Hx of Infectious Diseases: None - Past Medical History & Family History Past Medical History?: Yes - Past Social History Smoking Status: Former Smoker - CARDIAC Hx Cardiac Disorders: Yes Hx Hypercholesterolemia: Yes Hx Hypertension: Yes - PULMONARY Hx Chronic Obstructive Pulmonary Disease (COPD): Yes - NEUROLOGICAL Hx Neurological Disorder: No - HEENT Hx HEENT Problems: No - RENAL Hx Chronic Kidney Disease: No - ENDOCRINE/METABOLIC Hx Diabetes Mellitus Type 2: Yes - HEMATOLOGICAL/ONCOLOGICAL Hx Blood Disorders: No - INTEGUMENTARY Hx Dermatological Problems: No - MUSCULOSKELETAL/RHEUMATOLOGICAL Hx Musculoskeletal Disorders: No Hx Falls: No - GASTROINTESTINAL Hx Gastrointestinal Disorders: No - GENITOURINARY/GYNECOLOGICAL Hx Genitourinary Disorders: Yes (URINARY RETENTION) Hx Prostate Problems: Yes - PSYCHIATRIC Hx Psychophysiologic Disorder: No Hx Substance Use: No - SURGICAL HISTORY Hx Surgeries: Yes Hx Cholecystectomy: Yes - ANESTHESIA Hx Anesthesia: Yes Hx Anesthesia Reactions: No Hx Malignant Hyperthermia: No Has any member of the family had a problem w/ anesthesia?: No Meds Allergies/Adverse Reactions: Allergies Allergy/AdvReac Type Severity Reaction Status Date / Time No Known Allergies Allergy Verified 08/13/17 07:32 - Medications Medications: Current Medications Acetaminophen (Tylenol 325mg Tab) 650 mg PO TID PRN PRN Reason: pain Last Admin: 08/16/17 15:55 Dose: 650 mg Albuterol Sulfate (Albuterol 0.042% Inhal Mindy (1.25mg/3ml) Ud) 1.25 mg INH RQ4 PRN PRN Reason: Shortness of Breath Last Admin: 08/18/17 11:13 Dose: 1.25 mg Enoxaparin Sodium (Lovenox) 30 mg SC Q12 [facility] Last Admin: 08/17/17 22:03 Dose: 30 mg Cefepime HCl (Maxipime Iv 1 Gm Premix) 1 gm in 50 mls @ 100 mls/hr IVPB Q12H [facility] Last Admin: 08/18/17 01:39 Dose: 100 mls/hr Insulin Aspart (Novolog) 0 unit SC ACHS [facility] PRN Reason: Protocol Last Admin: 08/18/17 11:39 Dose: Not Given Promethazine HCl/Dextromethorphan (Phenergan Dm Syrup) 10 ml PO Q8H [facility] Last Admin: 08/18/17 09:17 Dose: Not Given Fluticasone/Salmeterol (Advair Diskus 500/50) 1 puff INH RQ12 [facility] Last Admin: 08/18/17 08:04 Dose: 1 puff Tamsulosin HCl (Flomax) 0.4 mg PO DAILY [facility] Last Admin: 08/18/17 09:17 Dose: Not Given Tiotropium [place] (Spiriva) 18 mcg INH RQ24 [facility] Last Admin: 08/18/17 08:04 Dose: 18 mcg Results - Vital Signs Recent Vital Signs: Last Vital Signs Temp 98.2 F 08/18/17 07:55 Pulse 75 08/18/17 07:55 Resp 20 08/18/17 07:55 BP 112/67 08/18/17 07:55 Pulse Ox 97 08/18/17 07:55 - Labs Result Diagrams: 08/18/17 06:16 08/18/17 06:16 Labs: Laboratory Results - last 24 hr 08/17/17 08/17/17 08/17/17 11:27 12:05 12:05 WBC RBC Hgb Hct MCV MCH MCHC RDW Plt Count MPV Neut % (Auto) Lymph % (Auto) [place] % (Auto) Eos % (Auto) Baso % (Auto) Neut # Lymph # [place] # Eos # Baso # PT INR Sodium Potassium Chloride Carbon Dioxide Anion Gap BUN Creatinine Est GFR ( Amer) Est GFR (Non-Af Amer) POC Glucose (mg/dL) 147 H Random Glucose Calcium Total Bilirubin AST ALT Alkaline Phosphatase Total Protein Albumin Globulin Albumin/Globulin Ratio IgG 842.5 ADELE 6 Profile Negative 08/17/17 08/17/17 08/18/17 16:44 21:37 02:18 WBC RBC Hgb Hct MCV MCH MCHC RDW Plt Count MPV Neut % (Auto) Lymph % (Auto) [place] % (Auto) Eos % (Auto) Baso % (Auto) Neut # Lymph # [place] # Eos # Baso # PT INR Sodium Potassium Chloride Carbon Dioxide Anion Gap BUN Creatinine Est GFR ( Amer) Est GFR (Non-Af Amer) POC Glucose (mg/dL) 147 H 102 110 Random Glucose Calcium Total Bilirubin AST ALT Alkaline Phosphatase Total Protein Albumin Globulin Albumin/Globulin Ratio IgG ADELE 6 Profile 08/18/17 08/18/17 08/18/17 06:16 06:16 06:16 WBC 6.4 RBC 4.13 L Hgb 11.9 L Hct 35.4 MCV 85.7 MCH 28.8 MCHC 33.6 RDW 14.7 H Plt Count 231 MPV 7.2 Neut % (Auto) 60.6 Lymph % (Auto) 20.0 [place] % (Auto) 9.6 Eos % (Auto) 8.7 H Baso % (Auto) 1.1 Neut # 3.9 Lymph # 1.3 [place] # 0.6 Eos # 0.6 Baso # 0.1 PT 10.9 INR 1.0 Sodium 134 Potassium 4.2 Chloride 99 Carbon Dioxide 31 H Anion Gap 8 L BUN 12 Creatinine 1.0 Est GFR ( Amer) > 60 Est GFR (Non-Af Amer) > 60 POC Glucose (mg/dL) Random Glucose 102 Calcium 7.7 L Total Bilirubin 0.5 AST 74 H D ALT 102 H D Alkaline Phosphatase 127 H Total Protein 6.0 L Albumin 3.2 L Globulin 2.7 Albumin/Globulin Ratio 1.2 IgG ADELE 6 Profile 08/18/17 08/18/17 08/18/17 07:11 07:55 11:04 WBC RBC Hgb Hct MCV MCH MCHC RDW Plt Count MPV Neut % (Auto) Lymph % (Auto) [place] % (Auto) Eos % (Auto) Baso % (Auto) Neut # Lymph # [place] # Eos # Baso # PT INR Sodium Potassium Chloride Carbon Dioxide Anion Gap BUN Creatinine Est GFR ( Amer) Est GFR (Non-Af Amer) POC Glucose (mg/dL) 99 96 110 Random Glucose Calcium Total Bilirubin AST ALT Alkaline Phosphatase Total Protein Albumin Globulin Albumin/Globulin Ratio IgG ADELE 6 Profile <Avinash Goldman Jr. - Last Filed: 08/18/17 13:04> History of Present Illness - History of Present Illness History of Present Illness: AAA too small to consider for repair at present needs 6m ultrasound follow up would need stent if increases in size or gets over 5.0cm in diameter Meds - Medications Medications: Current Medications Acetaminophen (Tylenol 325mg Tab) 650 mg PO TID PRN PRN Reason: pain Last Admin: 08/16/17 15:55 Dose: 650 mg Albuterol Sulfate (Albuterol 0.042% Inhal Mindy (1.25mg/3ml) Ud) 1.25 mg INH RQ4 PRN PRN Reason: Shortness of Breath Last Admin: 08/18/17 11:13 Dose: 1.25 mg Enoxaparin Sodium (Lovenox) 30 mg SC Q12 [facility] Last Admin: 08/17/17 22:03 Dose: 30 mg Cefepime HCl (Maxipime Iv 1 Gm Premix) 1 gm in 50 mls @ 100 mls/hr IVPB Q12H [facility] Last Admin: 08/18/17 01:39 Dose: 100 mls/hr Insulin Aspart (Novolog) 0 unit SC ACHS [facility] PRN Reason: Protocol Last Admin: 08/18/17 11:39 Dose: Not Given Promethazine HCl/Dextromethorphan (Phenergan Dm Syrup) 10 ml PO Q8H [facility] Last Admin: 08/18/17 09:17 Dose: Not Given Fluticasone/Salmeterol (Advair Diskus 500/50) 1 puff INH RQ12 [facility] Last Admin: 08/18/17 08:04 Dose: 1 puff Tamsulosin HCl (Flomax) 0.4 mg PO DAILY [facility] Last Admin: 08/18/17 09:17 Dose: Not Given Tiotropium [place] (Spiriva) 18 mcg INH RQ24 [facility] Last Admin: 08/18/17 08:04 Dose: 18 mcg Results - Vital Signs Recent Vital Signs: Last Vital Signs Temp 98.2 F 08/18/17 07:55 Pulse 75 08/18/17 07:55 Resp 20 08/18/17 07:55 BP 112/67 08/18/17 07:55 Pulse Ox 97 08/18/17 07:55 - Labs Result Diagrams: 08/18/17 06:16 08/18/17 06:16 Labs: Laboratory Results - last 24 hr 08/17/17 08/17/17 08/17/17 11:27 12:05 12:05 WBC RBC Hgb Hct MCV MCH MCHC RDW Plt Count MPV Neut % (Auto) Lymph % (Auto) [place] % (Auto) Eos % (Auto) Baso % (Auto) Neut # Lymph # [place] # Eos # Baso # PT INR Sodium Potassium Chloride Carbon Dioxide Anion Gap BUN Creatinine Est GFR ( Amer) Est GFR (Non-Af Amer) POC Glucose (mg/dL) 147 H Random Glucose Calcium Total Bilirubin AST ALT Alkaline Phosphatase Total Protein Albumin Globulin Albumin/Globulin Ratio IgG 842.5 ADELE 6 Profile Negative 08/17/17 08/17/17 08/18/17 16:44 21:37 02:18 WBC RBC Hgb Hct MCV MCH MCHC RDW Plt Count MPV Neut % (Auto) Lymph % (Auto) [place] % (Auto) Eos % (Auto) Baso % (Auto) Neut # Lymph # [place] # Eos # Baso # PT INR Sodium Potassium Chloride Carbon Dioxide Anion Gap BUN Creatinine Est GFR ( Amer) Est GFR (Non-Af Amer) POC Glucose (mg/dL) 147 H 102 110 Random Glucose Calcium Total Bilirubin AST ALT Alkaline Phosphatase Total Protein Albumin Globulin Albumin/Globulin Ratio IgG ADELE 6 Profile 08/18/17 08/18/17 08/18/17 06:16 06:16 06:16 WBC 6.4 RBC 4.13 L Hgb 11.9 L Hct 35.4 MCV 85.7 MCH 28.8 MCHC 33.6 RDW 14.7 H Plt Count 231 MPV 7.2 Neut % (Auto) 60.6 Lymph % (Auto) 20.0 [place] % (Auto) 9.6 Eos % (Auto) 8.7 H Baso % (Auto) 1.1 Neut # 3.9 Lymph # 1.3 [place] # 0.6 Eos # 0.6 Baso # 0.1 PT 10.9 INR 1.0 Sodium 134 Potassium 4.2 Chloride 99 Carbon Dioxide 31 H Anion Gap 8 L BUN 12 Creatinine 1.0 Est GFR ( Amer) > 60 Est GFR (Non-Af Amer) > 60 POC Glucose (mg/dL) Random Glucose 102 Calcium 7.7 L Total Bilirubin 0.5 AST 74 H D ALT 102 H D Alkaline Phosphatase 127 H Total Protein 6.0 L Albumin 3.2 L Globulin 2.7 Albumin/Globulin Ratio 1.2 IgG ADELE 6 Profile 08/18/17 08/18/17 08/18/17 07:11 07:55 11:04 WBC RBC Hgb Hct MCV MCH MCHC RDW Plt Count MPV Neut % (Auto) Lymph % (Auto) [place] % (Auto) Eos % (Auto) Baso % (Auto) Neut # Lymph # [place] # Eos # Baso # PT INR Sodium Potassium Chloride Carbon Dioxide Anion Gap BUN Creatinine Est GFR ( Amer) Est GFR (Non-Af Amer) POC Glucose (mg/dL) 99 96 110 Random Glucose Calcium Total Bilirubin AST ALT Alkaline Phosphatase Total Protein Albumin Globulin Albumin/Globulin Ratio IgG ADELE 6 Profile
--- NOTE | 2017-08-18 14:16 | CP.PCM.PN ---
Subjective - Date & Time of Evaluation Date of Evaluation: 08/18/17 Time of Evaluation: 14:14 - Subjective Subjective: CC: follow up abnl LFTs and dilated CBD EUS report: CBD dilated but no malignant mass lesions, stones, strictures Patient feels well, denies abdominal pain E Coli bacteremia CT- Pancreas neg. AAA noted- evaluated by vascular surgeon Objective - Vital Signs/Intake and Output Vital Signs (last 24 hours): Temp Pulse Resp BP Pulse Ox 97.1 F L 108 H 21 145/72 95 08/18/17 12:52 08/18/17 13:52 08/18/17 13:52 08/18/17 13:52 08/18/17 13:52 Intake and Output: 08/18/17 08/18/17 06:59 18:59 Intake Total 580 Balance 580 - Medications Medications: Current Medications Acetaminophen (Tylenol 325mg Tab) 650 mg PO TID PRN PRN Reason: pain Last Admin: 08/16/17 15:55 Dose: 650 mg Albuterol Sulfate (Albuterol 0.042% Inhal Mindy (1.25mg/3ml) Ud) 1.25 mg INH RQ4 PRN PRN Reason: Shortness of Breath Last Admin: 08/18/17 11:13 Dose: 1.25 mg Enoxaparin Sodium (Lovenox) 30 mg SC Q12 [facility] Last Admin: 08/17/17 22:03 Dose: 30 mg Cefepime HCl (Maxipime Iv 1 Gm Premix) 1 gm in 50 mls @ 100 mls/hr IVPB Q12H [facility] Last Admin: 08/18/17 14:01 Dose: 100 mls/hr Insulin Aspart (Novolog) 0 unit SC ACHS [facility] PRN Reason: Protocol Last Admin: 08/18/17 11:39 Dose: Not Given Promethazine HCl/Dextromethorphan (Phenergan Dm Syrup) 10 ml PO Q8H [facility] Last Admin: 08/18/17 09:17 Dose: Not Given Fluticasone/Salmeterol (Advair Diskus 500/50) 1 puff INH RQ12 [facility] Last Admin: 08/18/17 08:04 Dose: 1 puff Tamsulosin HCl (Flomax) 0.4 mg PO DAILY [facility] Last Admin: 08/18/17 09:17 Dose: Not Given Tiotropium [place] (Spiriva) 18 mcg INH RQ24 [facility] Last Admin: 08/18/17 08:04 Dose: 18 mcg - Labs Labs: 08/18/17 06:16 08/18/17 06:16 PT 10.9 SECONDS (9.7-12.2) 08/18/17 06:16 INR 1.0 08/18/17 06:16 APTT 31 SECONDS (21-34) 08/14/17 18:25 - Constitutional Appears: Well, No Acute Distress - Head Exam Head Exam: NORMOCEPHALIC - Eye Exam Eye Exam: absent: Scleral icterus - Neck Exam Neck Exam: Normal Inspection - Respiratory Exam Respiratory Exam: NORMAL BREATHING PATTERN - Cardiovascular Exam Cardiovascular Exam: REGULAR RHYTHM - GI/Abdominal Exam GI & Abdominal Exam: Soft. absent: Tenderness Assessment and Plan (1) Bacteremia Assessment & Plan: On antibiotics No biliary source identified on EUS Status: Acute (2) Liver function test abnormality Assessment & Plan: Undetermined cause. A few serologies ordered by biliary endoscopy team are pending. Status: Acute (3) Chronic obstructive lung disease Status: Acute
[2017-08-18 16:46] VITALS: RESP 20
--- NOTE | 2017-08-18 18:17 | CP.PCM.PN ---
Subjective - Date & Time of Evaluation Date of Evaluation: 08/18/17 Time of Evaluation: 09:00 - Subjective Subjective: afebrile denies pain Objective - Vital Signs/Intake and Output Vital Signs (last 24 hours): Temp Pulse Resp BP Pulse Ox 98.1 F 99 H 20 133/61 99 08/18/17 15:00 08/18/17 15:00 08/18/17 15:00 08/18/17 15:00 08/18/17 15:00 Intake and Output: 08/18/17 08/18/17 06:59 18:59 Intake Total 580 50 Balance 580 50 - Medications Medications: Current Medications Acetaminophen (Tylenol 325mg Tab) 650 mg PO TID PRN PRN Reason: pain Last Admin: 08/16/17 15:55 Dose: 650 mg Albuterol Sulfate (Albuterol 0.042% Inhal Mindy (1.25mg/3ml) Ud) 1.25 mg INH RQ4 PRN PRN Reason: Shortness of Breath Last Admin: 08/18/17 11:13 Dose: 1.25 mg Enoxaparin Sodium (Lovenox) 30 mg SC Q12 [facility] Last Admin: 08/17/17 22:03 Dose: 30 mg Cefepime HCl (Maxipime Iv 1 Gm Premix) 1 gm in 50 mls @ 100 mls/hr IVPB Q12H [facility] Last Admin: 08/18/17 14:01 Dose: 100 mls/hr Insulin Aspart (Novolog) 0 unit SC ACHS [facility] PRN Reason: Protocol Last Admin: 08/18/17 17:37 Dose: 1 unit Promethazine HCl/Dextromethorphan (Phenergan Dm Syrup) 10 ml PO Q8H [facility] Last Admin: 08/18/17 17:39 Dose: 10 ml Fluticasone/Salmeterol (Advair Diskus 500/50) 1 puff INH RQ12 [facility] Last Admin: 08/18/17 08:04 Dose: 1 puff Tamsulosin HCl (Flomax) 0.4 mg PO DAILY [facility] Last Admin: 08/18/17 09:17 Dose: Not Given Tiotropium [place] (Spiriva) 18 mcg INH RQ24 [facility] Last Admin: 08/18/17 08:04 Dose: 18 mcg - Labs Labs: 08/18/17 06:16 08/18/17 06:16 PT 10.9 SECONDS (9.7-12.2) 08/18/17 06:16 INR 1.0 08/18/17 06:16 APTT 31 SECONDS (21-34) 08/14/17 18:25 - Constitutional Appears: Non-toxic, Chronically Ill - Head Exam Head Exam: ATRAUMATIC, NORMOCEPHALIC - Eye Exam Eye Exam: PERRL. absent: Scleral icterus - ENT Exam ENT Exam: Mucous Membranes Dry - Neck Exam Neck Exam: absent: Lymphadenopathy - Respiratory Exam Respiratory Exam: Decreased Breath Sounds - Cardiovascular Exam Cardiovascular Exam: REGULAR RHYTHM - GI/Abdominal Exam GI & Abdominal Exam: Distended, Soft - Rectal Exam Rectal Exam: Deferred - Exam Exam: NORMAL INSPECTION - Extremities Exam Extremities Exam: absent: Pedal Edema - Back Exam Back Exam: absent: CVA tenderness (L), CVA tenderness (R) - Neurological Exam Neurological Exam: Alert, Awake, Oriented x3 Assessment and Plan (1) Bacteremia Status: Acute (2) Liver function test abnormality Status: Acute - Assessment and Plan (Free Text) Assessment: CBD dilated but no malignant mass lesions, stones, strictures Patient feels well, denies abdominal pain E Coli bacteremia CT- Pancreas neg. AAA noted- evaluated by vascular surgeon cont iv rx 14 days
[2017-08-19] MEDS: Cefepime IV 1 gm in Dextrose 1 GM/50 ML BAG IVPB SCH ×2 (00:55→13:12)
[2017-08-19] MEDS: Promethazine DM 12.5 mg-30 mg/10 ml Syrup PO SCH ×3 (01:00→17:32)
[2017-08-19] MEDS: Tiotropium 18 mcg Cap For Inhalation INH SCH (07:45)
[2017-08-19] MEDS: Fluticasone-Salmeterol 500-50mcg Diskus INH SCH ×2 (07:45→19:20)
[2017-08-19] MEDS: Albuterol 0.042% Inhal Sol (1.25 mg/3 mL) UD INH PRN ×2 (07:45→11:16)
[2017-08-19] MEDS: (Novolog) Insulin Aspart, Recombinant 100 u/ml 10 ml vial SC SCH ×4 (08:02→21:45)
--- NOTE | 2017-08-19 12:13 | CP.PCM.PN ---
Subjective - Date & Time of Evaluation Date of Evaluation: 08/19/17 Time of Evaluation: 12:10 - Subjective Subjective: CC: abnl LFTs Denies abdominal pain or dyspnea. EUS and CT do not reveal any obstructing biliary lesions LFTs elevated but stable E Coli bacteremia being treated. Patient does not appear septic Objective - Vital Signs/Intake and Output Vital Signs (last 24 hours): Temp Pulse Resp BP Pulse Ox 98.7 F 72 20 120/70 95 08/19/17 07:43 08/19/17 07:43 08/19/17 07:43 08/19/17 07:43 08/19/17 11:29 Intake and Output: 08/19/17 08/19/17 06:59 18:59 Intake Total 500 Balance 500 - Medications Medications: Current Medications Acetaminophen (Tylenol 325mg Tab) 650 mg PO TID PRN PRN Reason: pain Last Admin: 08/16/17 15:55 Dose: 650 mg Albuterol Sulfate (Albuterol 0.042% Inhal Mindy (1.25mg/3ml) Ud) 1.25 mg INH RQ4 PRN PRN Reason: Shortness of Breath Last Admin: 08/19/17 11:16 Dose: 1.25 mg Enoxaparin Sodium (Lovenox) 30 mg SC Q12 [facility] Last Admin: 08/17/17 22:03 Dose: 30 mg Cefepime HCl (Maxipime Iv 1 Gm Premix) 1 gm in 50 mls @ 100 mls/hr IVPB Q12H [facility] Last Admin: 08/19/17 00:55 Dose: 100 mls/hr Insulin Aspart (Novolog) 0 unit SC ACHS [facility] PRN Reason: Protocol Last Admin: 08/19/17 11:46 Dose: Not Given Promethazine HCl/Dextromethorphan (Phenergan Dm Syrup) 10 ml PO Q8H [facility] Last Admin: 08/19/17 09:58 Dose: Not Given Fluticasone/Salmeterol (Advair Diskus 500/50) 1 puff INH RQ12 [facility] Last Admin: 08/19/17 07:45 Dose: 1 puff Tamsulosin HCl (Flomax) 0.4 mg PO DAILY [facility] Last Admin: 08/19/17 09:58 Dose: 0.4 mg Tiotropium [place] (Spiriva) 18 mcg INH RQ24 [facility] Last Admin: 08/19/17 07:45 Dose: 18 mcg - Labs Labs: 08/18/17 06:16 08/18/17 06:16 PT 10.9 SECONDS (9.7-12.2) 08/18/17 06:16 INR 1.0 08/18/17 06:16 APTT 31 SECONDS (21-34) 08/14/17 18:25 - Constitutional Appears: Well, No Acute Distress - Head Exam Head Exam: NORMOCEPHALIC - Eye Exam Eye Exam: absent: Scleral icterus - Respiratory Exam Respiratory Exam: NORMAL BREATHING PATTERN - Cardiovascular Exam Cardiovascular Exam: REGULAR RHYTHM - GI/Abdominal Exam GI & Abdominal Exam: Soft. absent: Tenderness, Organomegaly Assessment and Plan (1) Bacteremia Assessment & Plan: E Coli Treated with IV antibiotics per ID No biliary lesions found on extensive workup Status: Acute (2) Liver function test abnormality Assessment & Plan: Monitor Status: Acute (3) Chronic obstructive lung disease Assessment & Plan: Stable Status: Acute
--- NOTE | 2017-08-19 15:42 | CP.PCM.PN ---
Subjective - Date & Time of Evaluation Date of Evaluation: 08/19/17 Time of Evaluation: 15:39 - Subjective Subjective: S: Feels donaldo. No fever. Objective - Vital Signs/Intake and Output Vital Signs (last 24 hours): Temp Pulse Resp BP Pulse Ox 98.7 F 72 20 120/70 95 08/19/17 07:43 08/19/17 07:43 08/19/17 07:43 08/19/17 07:43 08/19/17 11:29 Intake and Output: 08/19/17 08/19/17 06:59 18:59 Intake Total 500 530 Balance 500 530 - Medications Medications: Current Medications Acetaminophen (Tylenol 325mg Tab) 650 mg PO TID PRN PRN Reason: pain Last Admin: 08/16/17 15:55 Dose: 650 mg Albuterol Sulfate (Albuterol 0.042% Inhal [place] (1.25mg/3ml) Ud) 1.25 mg INH RQ4 PRN PRN Reason: Shortness of Breath Last Admin: 08/19/17 11:16 Dose: 1.25 mg Enoxaparin Sodium (Lovenox) 30 mg SC Q12 [facility] Last Admin: 08/17/17 22:03 Dose: 30 mg Enoxaparin Sodium (Lovenox) 30 mg SC DAILY [facility] Cefepime HCl (Maxipime Iv 1 Gm Premix) 1 gm in 50 mls @ 100 mls/hr IVPB Q12H [facility] Last Admin: 08/19/17 13:12 Dose: 100 mls/hr Insulin Aspart (Novolog) 0 unit SC ACHS [facility] PRN Reason: Protocol Last Admin: 08/19/17 11:46 Dose: Not Given Promethazine HCl/Dextromethorphan (Phenergan Dm Syrup) 10 ml PO Q8H [facility] Last Admin: 08/19/17 09:58 Dose: Not Given Fluticasone/Salmeterol (Advair Diskus 500/50) 1 puff INH RQ12 [facility] Last Admin: 08/19/17 07:45 Dose: 1 puff Tamsulosin HCl (Flomax) 0.4 mg PO DAILY [facility] Last Admin: 08/19/17 09:58 Dose: 0.4 mg Tiotropium [place] (Spiriva) 18 mcg INH RQ24 [facility] Last Admin: 08/19/17 07:45 Dose: 18 mcg - Labs Labs: 08/18/17 06:16 08/18/17 06:16 PT 10.9 SECONDS (9.7-12.2) 08/18/17 06:16 INR 1.0 08/18/17 06:16 APTT 31 SECONDS (21-34) 08/14/17 18:25 - Constitutional Appears: Non-toxic - Head Exam Head Exam: NORMAL INSPECTION - Eye Exam Eye Exam: Normal appearance - ENT Exam ENT Exam: Normal Exam - Neck Exam Neck Exam: Normal Inspection - Respiratory Exam Respiratory Exam: Decreased Breath Sounds - Cardiovascular Exam Cardiovascular Exam: REGULAR RHYTHM - GI/Abdominal Exam GI & Abdominal Exam: Soft - Rectal Exam Rectal Exam: Deferred - Extremities Exam Extremities Exam: Normal Inspection - Neurological Exam Neurological Exam: Alert Assessment and Plan (1) Bacteremia Status: Acute (2) Chronic obstructive lung disease Status: Acute - Assessment and Plan (Free Text) Assessment: A/P : wants to go home. IV antibiotics for 2 weeks. Will discuss case with Dr. Rodriguez
[2017-08-19] MEDS: Enoxaparin 30 mg Syringe SC SCH (17:32)
[2017-08-20] MEDS: Cefepime IV 1 gm in Dextrose 1 GM/50 ML BAG IVPB SCH (00:40)
[2017-08-20] MEDS: Promethazine DM 12.5 mg-30 mg/10 ml Syrup PO SCH ×3 (00:41→18:01)
[2017-08-20] MEDS: Tiotropium 18 mcg Cap For Inhalation INH SCH (07:36)
[2017-08-20] MEDS: Fluticasone-Salmeterol 500-50mcg Diskus INH SCH ×2 (07:36→19:46)
[2017-08-20] MEDS: (Novolog) Insulin Aspart, Recombinant 100 u/ml 10 ml vial SC SCH ×4 (07:46→22:35)
[2017-08-20] MEDS: Enoxaparin 30 mg Syringe SC SCH (09:20)
[2017-08-20] MEDS ORDERED: Albuterol 0.042% Inhal Sol (1.25 mg/3 mL) UD INH PRN (16:51)
--- NOTE | 2017-08-20 16:54 | CP.PCM.PN ---
Subjective - Date & Time of Evaluation Date of Evaluation: 08/20/17 Time of Evaluation: 07:00 - Subjective Subjective: iv rx reordered Objective - Vital Signs/Intake and Output Vital Signs (last 24 hours): Temp Pulse Resp BP Pulse Ox 97.9 F 93 H 20 109/69 99 08/20/17 08:43 08/20/17 08:43 08/20/17 08:43 08/20/17 08:43 08/20/17 08:43 Intake and Output: 08/20/17 08/20/17 06:59 18:59 Intake Total 500 480 Balance 500 480 - Medications Medications: Current Medications Acetaminophen (Tylenol 325mg Tab) 650 mg PO TID PRN PRN Reason: pain Last Admin: 08/16/17 15:55 Dose: 650 mg Enoxaparin Sodium (Lovenox) 30 mg SC DAILY [facility] Last Admin: 08/20/17 09:20 Dose: 30 mg Cefepime HCl 1 gm/ Dextrose 50 mls @ 100 mls/hr IVPB Q12H [facility] Last Admin: 08/20/17 16:34 Dose: 100 mls/hr Insulin Aspart (Novolog) 0 unit SC ACHS [facility] PRN Reason: Protocol Last Admin: 08/20/17 12:11 Dose: Not Given Promethazine HCl/Dextromethorphan (Phenergan Dm Syrup) 10 ml PO Q8H [facility] Last Admin: 08/20/17 09:20 Dose: Not Given Fluticasone/Salmeterol (Advair Diskus 500/50) 1 puff INH RQ12 [facility] Last Admin: 08/20/17 07:36 Dose: 1 puff Tamsulosin HCl (Flomax) 0.4 mg PO DAILY [facility] Last Admin: 08/20/17 09:20 Dose: 0.4 mg Tiotropium [place] (Spiriva) 18 mcg INH RQ24 [facility] Last Admin: 08/20/17 07:36 Dose: 18 mcg - Labs Labs: 08/18/17 06:16 08/18/17 06:16 PT 10.9 SECONDS (9.7-12.2) 08/18/17 06:16 INR 1.0 08/18/17 06:16 APTT 31 SECONDS (21-34) 08/14/17 18:25 - Constitutional Appears: Non-toxic, Chronically Ill - Head Exam Head Exam: NORMOCEPHALIC - Eye Exam Eye Exam: PERRL - ENT Exam ENT Exam: Mucous Membranes Dry - Neck Exam Neck Exam: absent: Lymphadenopathy - Respiratory Exam Respiratory Exam: Decreased Breath Sounds - Cardiovascular Exam Cardiovascular Exam: REGULAR RHYTHM - GI/Abdominal Exam GI & Abdominal Exam: Distended, Soft - Rectal Exam Rectal Exam: Deferred - Exam Exam: NORMAL INSPECTION - Extremities Exam Extremities Exam: absent: Pedal Edema - Back Exam Back Exam: absent: CVA tenderness (L), CVA tenderness (R) Assessment and Plan (1) Bacteremia Status: Acute (2) Liver function test abnormality Status: Acute - Assessment and Plan (Free Text) Assessment: biliary sepsis cont iv rx gi follow up
--- NOTE | 2017-08-20 17:29 | CP.PCM.PN ---
Subjective - Date & Time of Evaluation Date of Evaluation: 08/20/17 Time of Evaluation: 17:25 - Subjective Subjective: S: Feels donaldo. No fever. Repeat blood cultuer negative. CT abdomen donaldo. Objective - Vital Signs/Intake and Output Vital Signs (last 24 hours): Temp Pulse Resp BP Pulse Ox 97.9 F 93 H 20 109/69 99 08/20/17 08:43 08/20/17 08:43 08/20/17 08:43 08/20/17 08:43 08/20/17 08:43 Intake and Output: 08/20/17 08/20/17 06:59 18:59 Intake Total 500 480 Balance 500 480 - Medications Medications: Current Medications Acetaminophen (Tylenol 325mg Tab) 650 mg PO TID PRN PRN Reason: pain Last Admin: 08/16/17 15:55 Dose: 650 mg Albuterol Sulfate (Albuterol 0.042% Inhal Mindy (1.25mg/3ml) Ud) 1.25 mg INH RQ4 PRN PRN Reason: Shortness of Breath Enoxaparin Sodium (Lovenox) 30 mg SC DAILY [facility] Last Admin: 08/20/17 09:20 Dose: 30 mg Cefepime HCl 1 gm/ Dextrose 50 mls @ 100 mls/hr IVPB Q12H [facility] Last Admin: 08/20/17 16:34 Dose: 100 mls/hr Insulin Aspart (Novolog) 0 unit SC ACHS [facility] PRN Reason: Protocol Last Admin: 08/20/17 12:11 Dose: Not Given Promethazine HCl/Dextromethorphan (Phenergan Dm Syrup) 10 ml PO Q8H [facility] Last Admin: 08/20/17 09:20 Dose: Not Given Fluticasone/Salmeterol (Advair Diskus 500/50) 1 puff INH RQ12 [facility] Last Admin: 08/20/17 07:36 Dose: 1 puff Tamsulosin HCl (Flomax) 0.4 mg PO DAILY [facility] Last Admin: 08/20/17 09:20 Dose: 0.4 mg Tiotropium [place] (Spiriva) 18 mcg INH RQ24 [facility] Last Admin: 08/20/17 07:36 Dose: 18 mcg - Labs Labs: 08/18/17 06:16 08/18/17 06:16 PT 10.9 SECONDS (9.7-12.2) 08/18/17 06:16 INR 1.0 08/18/17 06:16 APTT 31 SECONDS (21-34) 08/14/17 18:25 - Constitutional Appears: Non-toxic - Head Exam Head Exam: NORMAL INSPECTION - Eye Exam Eye Exam: Normal appearance - ENT Exam ENT Exam: Normal Exam - Neck Exam Neck Exam: Normal Inspection - Respiratory Exam Respiratory Exam: Decreased Breath Sounds - Cardiovascular Exam Cardiovascular Exam: REGULAR RHYTHM - GI/Abdominal Exam GI & Abdominal Exam: Soft - Rectal Exam Rectal Exam: Deferred - Neurological Exam Neurological Exam: Alert Assessment and Plan (1) Bacteremia Status: Acute (2) Chronic obstructive lung disease Status: Chronic - Assessment and Plan (Free Text) Assessment: A/P: Change IV antibiotic to Rocephin. IV antibiotic for 2 weeks . For possible discharge in am. Will inform Dr. Rodriguez. Discuss case with nurse.
[2017-08-21] MEDS: Promethazine DM 12.5 mg-30 mg/10 ml Syrup PO SCH (01:14)
[2017-08-21] MEDS: (Novolog) Insulin Aspart, Recombinant 100 u/ml 10 ml vial SC SCH ×2 (08:20→14:09)
--- NOTE | 2017-08-21 09:28 | CP.PCM.PN ---
Subjective - Date & Time of Evaluation Date of Evaluation: 08/21/17 Time of Evaluation: 08:45 - Subjective Subjective: Pt no complain; mo CP, no SOB, no palpitation, no n/v, no [id number] (+) Dry cough Objective - Vital Signs/Intake and Output Vital Signs (last 24 hours): Temp Pulse Resp BP Pulse Ox 98 F 83 20 121/72 98 08/21/17 08:29 08/21/17 08:29 08/21/17 08:29 08/21/17 08:29 08/21/17 08:29 Intake and Output: 08/21/17 08/21/17 06:59 18:59 Intake Total 490 Balance 490 - Medications Medications: Current Medications Acetaminophen (Tylenol 325mg Tab) 650 mg PO TID PRN PRN Reason: pain Last Admin: 08/16/17 15:55 Dose: 650 mg Albuterol Sulfate (Albuterol 0.042% Inhal Mindy (1.25mg/3ml) Ud) 1.25 mg INH RQ4 PRN PRN Reason: Shortness of Breath Last Admin: 08/20/17 19:46 Dose: 1.25 mg Enoxaparin Sodium (Lovenox) 30 mg SC DAILY [facility] Last Admin: 08/20/17 09:20 Dose: 30 mg Ceftriaxone Sodium 1 gm/ (Sodium Chloride) 100 mls @ 100 mls/hr IVPB DAILY [facility] Insulin Aspart (Novolog) 0 unit SC ACHS [facility] PRN Reason: Protocol Last Admin: 08/21/17 08:20 Dose: Not Given Promethazine HCl/Dextromethorphan (Phenergan Dm Syrup) 10 ml PO Q8H [facility] Last Admin: 08/21/17 01:14 Dose: 10 ml Fluticasone/Salmeterol (Advair Diskus 500/50) 1 puff INH RQ12 [facility] Last Admin: 08/20/17 19:46 Dose: 1 puff Tamsulosin HCl (Flomax) 0.4 mg PO DAILY [facility] Last Admin: 08/20/17 09:20 Dose: 0.4 mg Tiotropium [place] (Spiriva) 18 mcg INH RQ24 [facility] Last Admin: 08/20/17 07:36 Dose: 18 mcg - Labs Labs: 08/18/17 06:16 08/18/17 06:16 PT 10.9 SECONDS (9.7-12.2) 08/18/17 06:16 INR 1.0 08/18/17 06:16 APTT 31 SECONDS (21-34) 08/14/17 18:25 - Constitutional Appears: No Acute Distress - Eye Exam Eye Exam: Normal appearance - ENT Exam ENT Exam: Mucous Membranes Moist - Respiratory Exam Respiratory Exam: Decreased Breath Sounds. absent: Rales, Rhonchi, Wheezes - Cardiovascular Exam Cardiovascular Exam: REGULAR RHYTHM, +S1, +S2, Murmur. absent: Gallop, JVD - GI/Abdominal Exam GI & Abdominal Exam: Soft. absent: Tenderness, Mass - Extremities Exam Extremities Exam: Full ROM, Normal Capillary Refill. absent: Calf Tenderness, Joint Swelling, Pedal Edema Assessment and Plan - Assessment and Plan (Free Text) Assessment: E coli Bacteremia ? sourese Abn LFT/ dilated CBD NIDDM, COPD Events noted; no Biliary carcinoma Contr meds Discharge if clear with ID
[2017-08-21] MEDS: Enoxaparin 30 mg Syringe SC SCH (09:44)
[2017-08-21] MEDS: Fluticasone-Salmeterol 500-50mcg Diskus INH SCH (10:01)
[2017-08-21] MEDS: Tiotropium 18 mcg Cap For Inhalation INH SCH (10:02)
--- NOTE | 2017-08-21 14:29 | RAD ---
Chest x-ray single frontal view History: PICC line insertion. Comparison: 08/14/2017 Findings: Right PICC line with tip extending to the cavoatrial junction. No evidence of postprocedure pneumothorax. Persistent small nodule/granuloma in the right midlung zone laterally. Diffuse increased interstitial lung markings, likely chronic. Mild patchy increased markings at the left lung base which may represent some mild atelectasis. Tortuous ectatic aorta with calcification at the aortic knob. Degenerative changes in the spine and shoulders. Impression: Right PICC line with tip extending to the cavoatrial junction.
[2017-08-21 16:19] VITALS: BP 111/66; PULSE 78; TEMP 98.3; O2SAT 99
--- NOTE | 2017-08-29 09:42 | CP.PCM.DIS ---
Provider - Provider Date of Admission: 08/14/17 18:50 81 y/o male with COPD, & NIDDM. Patient sen in ER c/o Acute COPD, exac. Pt had bld C/S ? and was (+) after in 24 hrs. He was recalled & admitted. On admission his LFT was elevated. Attending physician: Sotero Trinidad MD Time Spent in preparation of Discharge (in minutes): 15 Hospital Course - Lab Results Lab Results: Micro Results 08/14/17 06:26 Blood Blood Culture - Final NO GROWTH AFTER 5 DAYS 08/14/17 06:26 Blood Gram Stain - Final TEST NOT PERFORMED 08/14/17 06:00 Blood Blood Culture - Final NO GROWTH AFTER 5 DAYS 08/14/17 06:00 Blood Gram Stain - Final TEST NOT PERFORMED 08/14/17 21:35 Urine Urine Culture - Final No Growth (<1,000 CFU/ML) Most Recent Lab Values WBC 6.4 K/uL (4.8-10.8) 08/18/17 06:16 RBC 4.13 Mil/uL (4.40-5.90) L 08/18/17 06:16 Hgb 11.9 g/dL (12.0-18.0) L 08/18/17 06:16 Hct 35.4 % (35.0-51.0) 08/18/17 06:16 MCV 85.7 fL (80.0-94.0) 08/18/17 06:16 MCH 28.8 pg (27.0-31.0) 08/18/17 06:16 MCHC 33.6 g/dL (33.0-37.0) 08/18/17 06:16 RDW 14.7 % (11.5-14.5) H 08/18/17 06:16 Plt Count 231 K/uL (130-400) 08/18/17 06:16 MPV 7.2 fL (7.2-11.7) 08/18/17 06:16 Neut % (Auto) 60.6 % (50.0-75.0) 08/18/17 06:16 Lymph % (Auto) 20.0 % (20.0-40.0) 08/18/17 06:16 King % (Auto) 9.6 % (0.0-10.0) 08/18/17 06:16 Eos % (Auto) 8.7 % (0.0-4.0) H 08/18/17 06:16 Baso % (Auto) 1.1 % (0.0-2.0) 08/18/17 06:16 Neut # 3.9 K/uL (1.8-7.0) 08/18/17 06:16 Lymph # 1.3 K/uL (1.0-4.3) 08/18/17 06:16 King # 0.6 K/uL (0.0-0.8) 08/18/17 06:16 Eos # 0.6 K/uL (0.0-0.7) 08/18/17 06:16 Baso # 0.1 K/uL (0.0-0.2) 08/18/17 06:16 PT 10.9 SECONDS (9.7-12.2) 08/18/17 06:16 INR 1.0 08/18/17 06:16 APTT 31 SECONDS (21-34) 08/14/17 18:25 pO2 30 mm/Hg (30-55) 08/14/17 18:28 VBG pH 7.39 (7.32-7.43) 08/14/17 18:28 VBG pCO2 51 mmHg (40-60) 08/14/17 18:28 VBG HCO3 27.5 mmol/L 08/14/17 18:28 VBG Total CO2 32.5 mmol/L (22-28) H 08/14/17 18:28 VBG O2 Sat (Calc) 67.1 % (40-65) H 08/14/17 18:28 VBG Base Excess 4.7 mmol/L (0.0-2.0) H 08/14/17 18:28 VBG Potassium 3.9 mmol/L (3.6-5.2) 08/14/17 18:28 Sodium 140.0 mmol/l (132-148) 08/14/17 18: Chloride 104.0 mmol/L (98-107) 08/14/17 18:28 Glucose 183 mg/dl (75-110) H 08/14/17 18:28 Lactate 1.9 mmol/L (0.7-2.1) 08/14/17 18:28 Sodium 134 mmol/L (132-148) 08/18/17 06:16 Potassium 4.2 mmol/L (3.6-5.2) 08/18/17 06:16 Chloride 99 mmol/L (98-107) 08/18/17 06:16 Carbon Dioxide 31 mmol/L (22-30) H 08/18/17 06:16 Anion Gap 8 (10-20) L 08/18/17 06:16 BUN 12 mg/dL (9-20) 08/18/17 06:16 Creatinine 1.0 mg/dL (0.8-1.5) 08/18/17 06:16 Est GFR ( Amer) > 60 08/18/17 06:16 Est GFR (Non-Af Amer) > 60 08/18/17 06:16 POC Glucose (mg/dL) 88 mg/dL (65-110) 08/21/17 11:18 Random Glucose 102 mg/dL (75-110) 08/18/17 06:16 Hemoglobin A1c 7.0 % (4.2-6.5) H 08/14/17 20:03 Calcium 7.7 mg/dl (8.6-10.4) L 08/18/17 06:16 Phosphorus 2.9 mg/dL (2.5-4.5) 08/14/17 18:25 Magnesium 2.2 mg/dL (1.6-2.3) 08/14/17 18:25 Total Bilirubin 0.5 mg/dL (0.2-1.3) 08/18/17 06:16 AST 74 U/L (17-59) H D 08/18/17 06:16 ALT 102 U/L (21-72) H D 08/18/17 06:16 Alkaline Phosphatase 127 U/L (38-126) H 08/18/17 06:16 Total Protein 6.0 g/dL (6.3-8.3) L 08/18/17 06:16 Albumin 3.2 g/dL (3.5-5.0) L 08/18/17 06:16 Globulin 2.7 gm/dL (2.2-3.9) 08/18/17 06:16 Albumin/Globulin Ratio 1.2 (1.0-2.1) 08/18/17 06:16 Venous Blood Potassium 3.9 mmol/L (3.6-5.2) 08/14/17 18:28 Urine Color Yellow (YELLOW) 08/14/17 22:41 Urine Clarity Clear (Clear) 08/14/17 22:41 Urine pH 5.0 (5.0-8.0) 08/14/17 22:41 Ur Specific [place] 1.023 (1.003-1.030) 08/14/17 22:41 Urine Protein 1+ mg/dL (NEGATIVE) H 08/14/17 22:41 Urine Glucose (UA) Normal mg/dL (Normal) 08/14/17 22:41 Urine Ketones Negative mg/dL (NEGATIVE) 08/14/17 22:41 Urine Blood 1+ (NEGATIVE) H 08/14/17 22:41 Urine Nitrate Negative (NEGATIVE) 08/14/17 22:41 Urine Bilirubin Negative (NEGATIVE) 08/14/17 22:41 Urine Urobilinogen Normal mg/dL (0.2-1.0) 08/14/17 22:41 Ur Leukocyte Esterase Neg Vladislav/uL (Negative) 08/14/17 22:41 Urine WBC (Auto) 2 /hpf (0-5) 08/14/17 22:41 Urine RBC (Auto) 5 /hpf (0-3) H 08/14/17 22:41 IgG, Serum (MS) 20.9 mg/dL (4-86) 08/17/17 12:05 IgG 842.5 mg/dL (700.0-1600.0) 08/17/17 12:05 ADELE 6 Profile Negative (NEGATIVE) 08/17/17 12:05 Anti-Mitochondrial Ab Negative (Negative) 08/17/17 12:05 Anti-Smooth Muscle Ab Negative (Negative) 08/17/17 12:05 Liver/Kid Microsomes Ab <=20.0 U (<=20.0) 08/17/17 12:05 Hepatitis A IgM Ab Negative (NEGATIVE) 08/16/17 08:31 Hep Bs Antigen Negative (NEGATIVE) 08/16/17 08:31 Hep B Core IgM Ab Negative (NEGATIVE) 08/16/17 08:31 Hepatitis C Antibody Negative (NEGATIVE) 08/16/17 08:31 - Hospital Course Hospital Course: Pt admitted for E coli bacteremia and abn LFT. Pt was refferrred to ID & GI service. He has work up which showed dilated CBD. 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 Also CT showed AAA & was referred to surgeon. Pt discharge for IV antibiotic - stable Discharge Exam - Head Exam Head Exam: NORMAL INSPECTION - Eye Exam Eye Exam: Normal appearance - ENT Exam ENT Exam: Mucous Membranes Moist - Neck Exam Neck exam: Full Rom, Lymphadenopathy, Normal Inspection - Respiratory Exam Respiratory Exam: Decreased Breath Sounds. absent: Rales, Rhonchi, Wheezes - Cardiovascular Exam Cardiovascular Exam: REGULAR RHYTHM, RRR, +S1, +S2. absent: Gallop - GI/Abdominal Exam GI & Abdominal Exam: Soft. absent: Mass, Tenderness - Extremities Exam Extremities exam: calf tenderness, full ROM, normal capillary refill Discharge Plan - Discharge Medications Prescriptions: Albuterol 0.042% [Albuterol 0.042% Inhal Mindy (1.25mg/3ml) UD] 1 dose NEB QID PRN #100 neb PRN Reason: Wheezing Silodosin [Rapaflo] 8 mg PO DAILY #30 cap cefTRIAXone [Rocephin] 1 gm IVPB DAILY 10 Days #10 vial Tiotropium [Spiriva] 18 mcg INH RQ24 #30 cap Budesonide/Formoterol Fumarate [Symbicort 160-4.5 Mcg Inhaler] 1 aer IH BID #1 hfa.aer.ad Albuterol HFA [Ventolin HFA 90 mcg/actuation (8 g)] 0.09 mg IH Q4 PRN #1 puff PRN Reason: Wheezing - Follow Up Plan Condition: STABLE Disposition: HOME/ ROUTINE Instructions: Albuterol (By breathing), Ceftriaxone (By injection), Tiotropium (By breathing), Budesonide/Formoterol (By breathing), Silodosin (By mouth), Bacteremia (DC), Sepsis (DC), Sepsis (GEN) Additional Instructions: -FOLLOW UP WITH DR. TRINIDAD IN THE OFFICE WITHIN 5-7 DAYS OF DISCHARGE---CALL THE OFFICE TOMORROW TO MAKE YOUR APPT. -FOLLOW UP WITH DR. FARR (STOMACH DOCTOR) IN THE OFFICE WITHIN 7-10 DAYS OF DISCHARGE---CALL THE OFFICE TOMORROW TO MAKE YOUR APPT. -ACCORDING TO DR. ORNELAS, YOU WILL NEED A 6 MONTH FOLLOW UP WITH DR. TRINIDAD FOR YOUR ABDOMINAL ANEURYSM. -PER DR. RODRIGUEZ (INFECTION DOCTOR) RECOMMENDATIONS, YOU WILL CONTINUE IV ANTIBIOTICS FOLLOWS: ROCEPHIN 1 GM IV (THROUGH PICC LINE) ONCE A DAY FOR 10 DAYS (START 08/22/17 AND LAST DAY FOR MEDICINE IS 08/31/17). -PICC LINE TO REMAIN IN YOUR ARM UNTIL YOU ARE FINISHED WITH THE ANTIBIOTICS. - -YOU MAY SHOWER WITH THE PICC LINE. WRAP WITH SARAN WRAP OR PLASTIC BAG WHILE YOU SHOWER. KEEP PICC LINE DRY AND CLEAN. -CONTINUE YOUR USUAL HOME MEDICATIONS. -FOR ANY OTHER QUESTIONS OR CONCERNS, CONTACT DR. TRINIDAD'S OFFICE. Referrals: Sotero Trinidad MD [Staff Provider] - Tommy Rodriguez MD [Staff Provider] - Avinash Ornelas Jr., MD [Staff Provider] - Blake Farr MD [Staff Provider] -
== END 2017-08-21 17:01 | disposition home or self-care (01) | DRG 872 ==
LOC: C.ER 17:49 → C.9E 18:50 → C.3T 18:50
PROVIDERS: ADMIT Internal Medicine; ATTEND Internal Medicine
PROC: 0DB78ZX Excision of Stomach, Pylorus, Via Natural or Artificial Opening Endoscopic, Diagnostic (ICD-10-PCS; 2017-08-18)
PROC: 0DB68ZX Excision of Stomach, Via Natural or Artificial Opening Endoscopic, Diagnostic (ICD-10-PCS; 2017-08-18)
PROC: BD47ZZZ Ultrasonography of Gastrointestinal Tract (ICD-10-PCS; 2017-08-18)
PROC: 0DB28ZX Excision of Middle Esophagus, Via Natural or Artificial Opening Endoscopic, Diagnostic (ICD-10-PCS; principal; 2017-08-18 11:57)
DX: R78.81 Bacteremia (principal); K83.0 Cholangitis; J44.1 Chronic obstructive pulmonary disease with (acute) exacerbation; K22.10 Ulcer of esophagus without bleeding; K83.8 Other specified diseases of biliary tract; E11.9 Type 2 diabetes mellitus without complications; B96.20 Unspecified Escherichia coli [E. coli] as the cause of diseases classified elsewhere; E78.00 Pure hypercholesterolemia, unspecified; I10 Essential (primary) hypertension; I71.4 Abdominal aortic aneurysm, without rupture; K29.70 Gastritis, unspecified, without bleeding; K44.9 Diaphragmatic hernia without obstruction or gangrene; N40.1 Benign prostatic hyperplasia with lower urinary tract symptoms; R33.9 Retention of urine, unspecified; K57.10 Diverticulosis of small intestine without perforation or abscess without bleeding; R94.5 Abnormal results of liver function studies; Z79.84 Long term (current) use of oral hypoglycemic drugs; Z87.891 Personal history of nicotine dependence; Z90.49 Acquired absence of other specified parts of digestive tract

== ENCOUNTER → 2017-10-01 16:56 | Emergency (ER) | payer MEDICARE ==
[2017-10-01 16:57] VITALS: BMI 18.3
== END | disposition left against medical advice (07) ==
LOC: C.ER 16:56
DX: Z04.8 Encounter for examination and observation for other specified reasons (principal)

== ENCOUNTER 2017-10-14 23:44 | Emergency (ER) | payer MEDICARE ==
[2017-10-14 23:44] VITALS: BMI 18.3
[2017-10-14 23:56] VITALS: O2SAT 98
--- NOTE | 2017-10-15 00:02 | C.PDOC ---
History Of Present Illness 81 year old male whose past medical history includes COPD and BPH, who presents to ED complaining of difficulty urinating since 7PM this evening. Patient has not urinated since. Patient also states having lower abdominal pain. Patient denies fever,back pain N/V. Chief Complaint (Nursing): Male Genitourinary History Per: Patient History/Exam Limitations: no limitations Onset/Duration Of Symptoms: Hrs Current Symptoms Are (Timing): Still Present Severity: Moderate Alleviating Factors: None Recent travel outside of the [place]: No Past Medical History Reviewed: Historical Data, Nursing Documentation, Vital Signs Vital Signs: Last Vital Signs Temp 98.2 F 10/15/17 01:36 Pulse 70 10/15/17 01:36 Resp 16 10/15/17 01:36 BP 126/81 10/15/17 01:36 Pulse Ox 98 10/15/17 01:36 - Medical History PMH: Asthma, COPD, Diabetes, Emphysema (D/C SMOKING 10 YRS AGO 1 PACK PER DAY) , HTN, Hypercholesterolemia, Hyperlipidemia Denies: Chronic Kidney Disease Surgical History: Cholecystectomy - [facility] Procedures CYSTOMETROGRAM (10/07/14) CYSTOSCOPY NEC (10/14/14) ENDOSCOPIC BRONCHIAL BX (01/15/13) EXCISION OF MIDDLE ESOPHAGUS, ENDO, DIAGN (08/14/17) EXCISION OF STOMACH, ENDO, DIAGN (08/14/17) EXCISION OF STOMACH, PYLORUS, ENDO, DIAGN (08/14/17) INSERT INDWELLING CATH (10/18/14) TRANSURETHRAL PROSTATECTOMY ([place]IP) (10/14/14) ULTRASONOGRAPHY OF GASTROINTESTINAL TRACT (08/14/17) Family History: States: Unknown Family Hx - Social History Hx Tobacco Use: No (quit 7 yrs ago) Hx Alcohol Use: No Hx Substance Use: No - Immunization History Hx Tetanus Toxoid Vaccination: No Hx Influenza Vaccination: Yes Hx Pneumococcal Vaccination: Yes Review Of Systems Except As Marked, All Systems Reviewed And Found Negative. Cardiovascular: Negative for: Chest Pain, Palpitations Respiratory: Negative for: Shortness of Breath Gastrointestinal: Positive for: Abdominal Pain (lower abdominal pain ). Negative for: Nausea, Vomiting, Diarrhea Genitourinary: Positive for: Other (urinary retention) Physical Exam - Physical Exam Appears: Well, Non-toxic, No Acute Distress Skin: Normal Color, Warm, Dry Head: Atraumatic, Normacephalic Eye(s): bilateral: Normal Inspection, PERRL, EOMI Cardiovascular: Rhythm Regular, No Murmur Respiratory: Normal Breath Sounds, No Rales, No Rhonchi, No Wheezing Gastrointestinal/Abdominal: Bowel Sounds (active), Distention (distended bladder ), Other (suprapubic discomfort ) Back: No CVA Tenderness Neurological/Psych: Oriented x3, Normal Speech, Normal Sensation ED Course And Treatment O2 Sat by Pulse Oximetry: 98 (room air) Pulse Ox Interpretation: Normal Medical Decision Making Medical Decision Making: Impression: 81 y/o male with distended bladder complaining of lower abdominal pain and urinary retention since this evening. Differential Diagnosis included but are not limited to: urinary retention.Campos passed,yielded 350 cc clear urine Plan: -- Campos -- Urinalysis -- Reassess and disposition Disposition - Disposition Referrals: Nelson Kemp MD [Staff Provider] - Disposition: HOME/ ROUTINE Disposition Time: 15:18 Condition: GOOD Prescriptions: Ciprofloxacin HCl [Cipro] 500 mg PO BID #20 tablet Instructions: Urinary Retention Forms: [employer] (Congolese) Print Language: KYRGYZ - Clinical Impression Clinical Impression: Urinary retention - Scribe Statement The provider has reviewed the documentation as recorded by the Scribe Scribe Attestation: Kezia Barreto MD Scribe Attestation: All medical record entries made by the Scribe were at my direction and personally dictated by me. I have reviewed the chart and agree that the record accurately reflects my personal performance of the history, physical exam, medical decision making, and the department course for this patient. I have also personally directed, reviewed, and agree with the discharge instructions and disposition.
[2017-10-15] MEDS ORDERED: Lidocaine 4% (Laryng-O-Jet) Kit MM ONE (00:03)
[2017-10-15] MEDS ORDERED: Lidocaine 2% Jelly (Uro-Jet) ONE (00:07)
[2017-10-15 00:34] LABS: SQUAMOUS EPITHIAL 1 /hpf (0-5)
[2017-10-15 01:37] VITALS: BP 126/81; PULSE 70; RESP 16; TEMP 98.2
[2017-10-15 03:18] LABS: URINE CLARITY Clear (Clear); URINE COLOR YELLOW (YELLOW); URINE GLUCOSE (UA) NEGATIVE (Normal)
[2017-10-15 03:19] LABS: PH,URINE 6.5 (5.0-8.0); URINE BILIRUBIN NEGATIVE (NEGATIVE); URINE BLOOD LARGE (NEGATIVE); URINE PROTEIN NEGATIVE (NEGATIVE)
[2017-10-15 03:20] LABS: URINE LEUKOCYTE ESTERASE NEGATIVE Leu/uL (Negative); URINE NITRATE NEGATIVE (NEGATIVE); URINE UROBILINOGEN 0.2 mg/dL (0.2-1.0)
== END 2017-10-15 01:41 | disposition home or self-care (01) ==
LOC: C.ER 23:44
DX: R33.9 Retention of urine, unspecified (principal)

== ENCOUNTER 2017-10-15 03:59 | Emergency (ER) | payer MEDICARE ==
[2017-10-15 03:59] VITALS: BMI 18.3
[2017-10-15 04:16] VITALS: RESP 18; TEMP 97.8; O2SAT 95
--- NOTE | 2017-10-15 04:23 | C.PDOC ---
History Of Present Illness Pt had grimes placed a few hours ago for urinary retention.Now wants the catheter removed because of discomfort. foely draining appropriately into the leg bag. Time Seen by Provider: 10/15/17 04:20 History Per: Patient History/Exam Limitations: no limitations Onset/Duration Of Symptoms: Hrs Current Symptoms Are (Timing): Still Present Severity: Moderate Pain Scale Rating Of: 4 Quality Of Discomfort: Dull, Burning Associated Symptoms: denies: Fever, Chills Alleviating Factors: None Recent travel outside of the [place]: No Additional History Per: Patient Past Medical History Reviewed: Historical Data, Nursing Documentation, Vital Signs Vital Signs: Last Vital Signs Temp 97.8 F 10/15/17 04:13 Pulse 110 H 10/15/17 04:13 Resp 18 10/15/17 04:13 BP 170/93 H 10/15/17 04:13 Pulse Ox 95 10/15/17 04:13 - Medical History PMH: Asthma, COPD, Diabetes, Emphysema (D/C SMOKING 10 YRS AGO 1 PACK PER DAY) , HTN, Hypercholesterolemia, Hyperlipidemia Denies: Chronic Kidney Disease Surgical History: Cholecystectomy - [facility] Procedures CYSTOMETROGRAM (10/07/14) CYSTOSCOPY NEC (10/14/14) ENDOSCOPIC BRONCHIAL BX (01/15/13) EXCISION OF MIDDLE ESOPHAGUS, ENDO, DIAGN (08/14/17) EXCISION OF STOMACH, ENDO, DIAGN (08/14/17) EXCISION OF STOMACH, PYLORUS, ENDO, DIAGN (08/14/17) INSERT INDWELLING CATH (10/18/14) TRANSURETHRAL PROSTATECTOMY (TULIP) (10/14/14) ULTRASONOGRAPHY OF GASTROINTESTINAL TRACT (08/14/17) Family History: States: No Known Family Hx - Social History Hx Tobacco Use: No (quit 7 yrs ago) Hx Alcohol Use: No Hx Substance Use: No - Immunization History Hx Tetanus Toxoid Vaccination: No Hx Influenza Vaccination: Yes Hx Pneumococcal Vaccination: Yes Review Of Systems Genitourinary: Positive for: Penile Pain, Other (grimes in place) Physical Exam - Physical Exam Appears: Non-toxic Male Genital: Circumcised, Other (grimes in place) ED Course And Treatment O2 Sat by Pulse Oximetry: 95 Pulse Ox Interpretation: Normal Progress Note: grimes catheter removed without any difficulty. Pt understands that he may become obstructed again requiring re-insertion of grimes catheter, Pt insisted on having the grimes removed Disposition Counseled Patient/Family Regarding: Studies Performed, Diagnosis, Need For Followup - Disposition Referrals: Darryl Bynum Jr., MD [Staff Provider] - Disposition: HOME/ ROUTINE Disposition Time: 04:20 Condition: FAIR Instructions: Grimes Catheter, Male - Clinical Impression Clinical Impression: Encounter for Grimes catheter removal
[2017-10-15 04:47] VITALS: BP 171/89; PULSE 102
== END 2017-10-15 04:30 | disposition home or self-care (01) ==
LOC: C.ER 03:59
DX: Z46.6 Encounter for fitting and adjustment of urinary device (principal)

== ENCOUNTER 2017-10-16 21:38 | Emergency (ER) | payer MEDICARE ==
[2017-10-16 21:38] VITALS: BMI 18.3
--- NOTE | 2017-10-16 22:01 | C.PDOC ---
History Of Present Illness 81 year old male presents to the ER with a complaint of difficulty urinating, associated with hypogastric pain; last time he urinated was at 17:00 today. Patient has a Hx of retention, he was seen in the ER in the past and had a grimes cath inserted with relief and had it taken out the following day. Denies fever or chills. Chief Complaint (Nursing): Male Genitourinary History Per: Patient History/Exam Limitations: no limitations Onset/Duration Of Symptoms: Hrs Current Symptoms Are (Timing): Still Present Quality Of Discomfort: Unable To Describe Associated Symptoms: Urinary Symptoms (Retention). denies: Fever, Chills Alleviating Factors: None Recent travel outside of the [place]: No Past Medical History Reviewed: Historical Data, Nursing Documentation, Vital Signs Vital Signs: Last Vital Signs Temp 98.8 F 10/16/17 22:00 Pulse 76 10/16/17 22:00 Resp 18 10/16/17 22:00 BP 153/83 H 10/16/17 22:00 Pulse Ox 99 10/16/17 22:00 - Medical History PMH: Asthma, COPD, Diabetes, Emphysema (D/C SMOKING 10 YRS AGO 1 PACK PER DAY) , HTN, Hypercholesterolemia, Hyperlipidemia Surgical History: Cholecystectomy - [facility] Procedures CYSTOMETROGRAM (10/07/14) CYSTOSCOPY NEC (10/14/14) ENDOSCOPIC BRONCHIAL BX (01/15/13) EXCISION OF MIDDLE ESOPHAGUS, ENDO, DIAGN (08/14/17) EXCISION OF STOMACH, ENDO, DIAGN (08/14/17) EXCISION OF STOMACH, PYLORUS, ENDO, DIAGN (08/14/17) INSERT INDWELLING CATH (10/18/14) TRANSURETHRAL PROSTATECTOMY (TULIP) (10/14/14) ULTRASONOGRAPHY OF GASTROINTESTINAL TRACT (08/14/17) Family History: States: Unknown Family Hx - Social History Hx Tobacco Use: No (quit 7 yrs ago) Hx Alcohol Use: No Hx Substance Use: No - Immunization History Hx Tetanus Toxoid Vaccination: No Hx Influenza Vaccination: Yes Hx Pneumococcal Vaccination: Yes Review Of Systems Constitutional: Negative for: Fever, Chills Gastrointestinal: Positive for: Abdominal Pain Genitourinary: Positive for: Other (Urinary retention) Physical Exam - Physical Exam Appears: Non-toxic, No Acute Distress Skin: Normal Color, Warm, Dry Head: Atraumatic, Normacephalic Eye(s): bilateral: Normal Inspection Oral Mucosa: Moist Chest: Symmetrical, No Tenderness Cardiovascular: Rhythm Regular Respiratory: Normal Breath Sounds, No Rales, No Rhonchi, No Wheezing Gastrointestinal/Abdominal: Soft, Tenderness (Hypogastric), Distention (Bladder) , No Guarding, No Rebound Neurological/Psych: Oriented x3, Normal Speech Disposition - Disposition Referrals: Sotero Rolle MD [Primary Care Provider] - Darryl Bynum Jr., MD [Staff Provider] - Disposition: HOME/ ROUTINE Disposition Time: 00:12 Condition: STABLE Additional Instructions: keep appoint with Dr. Bynum tomorrow increased fluids by mouth. Prescriptions: Phenazopyridine HCl [Pyridium] 200 mg PO TID #14 tablet Tamsulosin [Flomax] 0.4 mg PO DAILY #7 cap Tramadol HCl/Acetaminophen [Tramadol-Acetaminophn 37.5-325] 1 each PO Q6 #10 tablet Instructions: How to Care for Your Grimes Catheter, Male, Grimes Catheter, Male Forms: [id number] (Czech) - POA Present On Arrival: None - Clinical Impression Clinical Impression: Urinary bladder disorder, Dysuria - Scribe Statement The provider has reviewed the documentation as recorded by the Scribe Tommy Sawant All medical record entries made by the Scribe were at my direction and personally dictated by me. I have reviewed the chart and agree that the record accurately reflects my personal performance of the history, physical exam, medical decision making, and the department course for this patient. I have also personally directed, reviewed, and agree with the discharge instructions and disposition.
[2017-10-16 22:05] VITALS: RESP 18
[2017-10-16 23:18] LABS: URINE BILIRUBIN NEGATIVE (NEGATIVE); URINE BLOOD 2+ (NEGATIVE); URINE CLARITY Clear (Clear); URINE COLOR Yellow (YELLOW); URINE GLUCOSE (UA) 3+ mg/dL (Normal); URINE LEUKOCYTE ESTERASE NEG Leu/uL (Negative); URINE NITRATE NEGATIVE (NEGATIVE); URINE PROTEIN NEGATIVE (NEGATIVE); URINE UROBILINOGEN NORMAL mg/dL (0.2-1.0)
[2017-10-17 00:46] VITALS: BP 136/74; PULSE 80; TEMP 98.1; O2SAT 100
== END 2017-10-17 00:44 | disposition home or self-care (01) ==
LOC: SUPCPDRO 21:38 → C.ER 21:38
DX: N32.9 Bladder disorder, unspecified (principal); R30.0 Dysuria

== ENCOUNTER 2017-10-23 09:59 | Day surgery (SDC) | payer MEDICARE ==
[2017-10-23 11:10] VITALS: O2SAT 98
[2017-10-23] MEDS ORDERED: Propofol 10 mg/ml Inj (20 ML) ONE (11:43)
[2017-10-23] MEDS ORDERED: HYDROmorphone 0.5 mg/0.5 ml ISec IVP PRN (11:51)
[2017-10-23] MEDS ORDERED: Lactated Ringer's 1,000 ML IV SCH (12:00)
[2017-10-23] MEDS ORDERED: Albuterol-Ipratrop 3 mg / 0.5 (3 ml) UD INH STA (12:02)
[2017-10-23] MEDS ORDERED: Gentamicin 160 MG in Sodium Chloride 0.9% 100 ML IVPB ONE (12:34)
[2017-10-23] MEDS ORDERED: Ciprofloxacin 400mg/200ml D5W 400 MG/200 ML BAG IVPB ONE (13:06)
[2017-10-23] MEDS ORDERED: Lidocaine 2% Jelly (Uro-Jet) ONE (13:07)
--- NOTE | 2017-10-23 13:18 | PCM.SURG1 ---
Surgeon's Initial Post Op Note - Surgeon's Notes Surgeon: Fletcher Operations Inspector: TIM Type of Anesthesia: IV Sedation Anesthesia Administered By: Staff Pre-Operative Diagnosis: BPH/urinary retention Operative Findings: BPH/MILLS Post-Operative Diagnosis: BPH/MILLS/Hx urinary retention Operation Performed: cystoscopy Specimen/Specimens Removed: na Estimated Blood Loss: EBL {In ML}: 0 Blood Products Given: N/A Drains Used: No Drains Post-Op Condition: Good Date of Surgery/Procedure: 10/23/17 Time of Surgery/Procedure: 13:18
[2017-10-23 14:35] VITALS: BP 130/73; PULSE 82; RESP 18; TEMP 98
--- NOTE | 2017-10-24 08:35 | OP ---
PROCEDURE DATE: 10/23/2017 PREOPERATIVE DIAGNOSES: Urinary retention, benign prostatic hypertrophy. POSTOPERATIVE DIAGNOSES: Urinary retention and benign prostatic hypertrophy. PROCEDURE: Cystopanendoscopy. DESCRIPTION OF THE PROCEDURE: Prior to the procedure, the detailed informed consent was obtained from the patient. He is aware that we may not find the etiology of his retention and further procedures may be necessary. The patient also indicates that he does not want a Campos catheter in any circumstances AMA. The patient was brought into the room and a timeout was taken according to the rules and regulations of [facility]. He was given prophylactic antibiotics and he was draped and prepped in the usual manner. He was cystoscoped with #21 Storz panendoscope. The pendulous and membranous urethra was normal. The prostatic urethra showed evidence of previous surgery with a significant regrowth of prostatic tissue with a high medium bar causing significant outlet obstruction. Bladder was entered atraumatically with no urothelial tumors or stones. The patient was drained. A Campos catheter was not left at the patient's request and the patient was sent to the recovery room in good condition. He was given detailed postoperative instructions and told to return to our office on . He was made aware that he will be scheduled for a laser vaporization of remaining prostatic tissue next week. Darryl Bynum MD
== END 2017-10-23 15:10 | disposition home or self-care (01) ==
LOC: C.SDS 09:59
PROVIDERS: ATTEND Urology
DX: N40.1 Benign prostatic hyperplasia with lower urinary tract symptoms (principal); R33.9 Retention of urine, unspecified; R33.8 Other retention of urine; N40.0 Benign prostatic hyperplasia without lower urinary tract symptoms
CPT/HCPCS: 52000; 82948; J0744; J1580

== ENCOUNTER 2017-10-30 09:09 | Day surgery (SDC) | payer MEDICARE ==
[2017-10-26 13:26] VITALS: BMI 17.9
[2017-10-30] MEDS ORDERED: Gentamicin 160 MG in Sodium Chloride 0.9% 100 ML IVPB ONE (12:27)
[2017-10-30] MEDS ORDERED: Albuterol 0.042% Inhal Sol (1.25 mg/3 mL) UD INH STA (13:21)
[2017-10-30] MEDS ORDERED: Propofol 10 mg/ml Inj (20 ML) ONE (13:37)
[2017-10-30] MEDS ORDERED: Lactated Ringer's 1,000 ML IV ONE (13:45)
[2017-10-30] MEDS ORDERED: Ciprofloxacin 400mg/200ml D5W 400 MG/200 ML BAG IVPB ONE (13:52)
--- NOTE | 2017-10-30 14:27 | PCM.SURG1 ---
Surgeon's Initial Post Op Note - Surgeon's Notes Surgeon: Fletcher Yarn Wrapper: sienna Type of Anesthesia: General LMA Anesthesia Administered By: staff Pre-Operative Diagnosis: BPH/koroma/Hx retention Operative Findings: BPH/KOROMA Post-Operative Diagnosis: BPH/Koroma?Hx urinary retention Operation Performed: TULAP Specimen/Specimens Removed: NA Estimated Blood Loss: EBL {In ML}: 0 Blood Products Given: N/A Drains Used: No Drains Post-Op Condition: Good Date of Surgery/Procedure: 10/30/17 Time of Surgery/Procedure: 14:26
[2017-10-30] MEDS: HYDROmorphone 0.5 mg/0.5 ml ISec IVP PRN ×2 (15:00→15:15)
[2017-10-30 17:00] VITALS: RESP 16
[2017-10-30 17:08] VITALS: BP 120/68; PULSE 68; TEMP 97.8; O2SAT 95
--- NOTE | 2017-11-02 01:04 | OP ---
PROCEDURE DATE: 10/30/2017 PREOPERATIVE DIAGNOSES: Benign prostatic hyperplasia with bladder outlet obstruction and history of urinary retention. POSTOPERATIVE DIAGNOSES: Benign prostatic hyperplasia with bladder outlet obstruction and history of urinary retention. PROCEDURE: Transurethral laser ablation of the prostate (green light laser vaporization of the prostate). DESCRIPTION OF PROCEDURE: The procedure is as follows. The patient was asked to sign a detailed informed consent after full explanation of the risks and complications of this procedure and alternatives in managing bladder outlet obstruction and urinary retention. He consented to the procedure and was willing to accept the risks. He was brought into the room and a time-out was taken according to the rules and regulations of [facility]. The patient received prophylactic antibiotics, and after careful draping and prepping, was cystoscoped with laser cystoscope. Previous cystoscopic findings were confirmed. A laser working element was then inserted and vaporization of the prostate began at 11 o'clock, carried down to 6 o' clock from just distal to the bladder neck to just proximal to the verumontanum. The left lateral tissue, the base tissue, and the roof tissue were vaporized in similar fashion. No injury occurred to the ureteral orifices, bladder or external sphincter. Once complete vaporization was achieved, then there was an excellent voiding channel. The scope was withdrawn leaving the bladder filled with irrigant fluid and #[address] 5 mL catheter was inserted, inflated with normal saline and drained clear irrigant fluid. The patient tolerated the procedure well. He was given detailed instructions about postoperative care and an appointment to return to our office tomorrow and have a Campos catheter removed as well as prescription for antibiotics. Darryl Bynum MD
== END 2017-10-30 16:57 | disposition home or self-care (01) ==
LOC: C.SDS 09:09
PROVIDERS: ATTEND Urology
DX: N13.8 Other obstructive and reflux uropathy (principal); N40.1 Benign prostatic hyperplasia with lower urinary tract symptoms
CPT/HCPCS: 52648; 82948; 94640; J0744; J1170; J1580; J7120

== ENCOUNTER 2017-12-11 19:40 | Inpatient (IN) | payer MEDICARE ==
[2017-12-11 19:40] VITALS: BMI 17.9
--- NOTE | 2017-12-11 20:09 | C.PDOC ---
History Of Present Illness Patient presents to the ER with a complaint of SOB, cough with whitish sputum, and fever since yesterday. Patient reports he has been feeling tired, he took tylenol with minimum relief. Patient is currently speaking in complete sentences ; denies chills, chest pain, nausea, or vomiting. Time Seen by Provider: 12/11/17 20:08 Chief Complaint (Nursing): Shortness Of Breath History Per: Patient History/Exam Limitations: no limitations Onset/Duration Of Symptoms: Days Current Symptoms Are (Timing): Still Present Initiating Event: Upper Respiratory Illness, Other (Not known) Exacerbating Factor(s): Coughing Current Respiratory Medications: See Home Med List Severity: Moderate Pain Scale Rating Of: 4 Associated Symptoms: Fever, Productive Cough, Other (SOB). denies: Chills, Chest Pain Reports Recently: Seen In ED, Treated By A Physician, Hospitalized Recent travel outside of the [place]: No Additional History Per: Family Past Medical History Reviewed: Historical Data, Nursing Documentation, Vital Signs Vital Signs: Last Vital Signs Temp 99.8 F H 12/11/17 19:52 Pulse 118 H 12/11/17 19:52 Resp 28 H 12/11/17 21:44 BP 133/73 12/11/17 21:44 Pulse Ox 99 12/11/17 21:44 - Medical History PMH: Asthma, COPD, Diabetes, Emphysema (D/C SMOKING 10 YRS AGO 1 PACK PER DAY) , Gastritis, HTN, Hypercholesterolemia, Hyperlipidemia Surgical History: Cholecystectomy, Endoscopy (ERCP) - [facility] CYSTOMETROGRAM (10/07/14) CYSTOSCOPY NEC (10/14/14) ENDOSCOPIC BRONCHIAL BX (01/15/13) EXCISION OF MIDDLE ESOPHAGUS, ENDO, DIAGN (08/14/17) EXCISION OF STOMACH, ENDO, DIAGN (08/14/17) EXCISION OF STOMACH, PYLORUS, ENDO, DIAGN (08/14/17) INSERT INDWELLING CATH (10/18/14) TRANSURETHRAL PROSTATECTOMY ([place]IP) (10/14/14) ULTRASONOGRAPHY OF GASTROINTESTINAL TRACT (08/14/17) Family History: States: No Known Family Hx - Social History Hx Tobacco Use: No (quit 7 yrs ago) Hx Alcohol Use: No Hx Substance Use: No - Immunization History Hx Tetanus Toxoid Vaccination: No Hx Influenza Vaccination: Yes Hx Pneumococcal Vaccination: Yes Review Of Systems Constitutional: Positive for: Fever Cardiovascular: Negative for: Chest Pain, Palpitations Respiratory: Positive for: Cough, Shortness of Breath, Sputum Gastrointestinal: Negative for: Nausea, Vomiting Genitourinary: Positive for: Dysuria Musculoskeletal: Negative for: Back Pain Skin: Negative for: Rash Neurological: Negative for: Weakness Psych: Negative for: Anxiety Physical Exam - Physical Exam Appears: Non-toxic Skin: Warm, Dry Head: Normacephalic Eye(s): bilateral: Normal Inspection Oral Mucosa: Moist Throat: No Erythema, No Exudate Neck: Supple Chest: Symmetrical, No Tenderness Cardiovascular: Rhythm Regular Respiratory: No Rales, Rhonchi (Scattered), No Wheezing Gastrointestinal/Abdominal: Soft, No Tenderness Back: Normal Inspection Extremity: Normal ROM Extremity: Bilateral: Atraumatic Pulses: Left Dorsalis Pedis: Normal, Right Dorsalis Pedis: Normal Neurological/Psych: Oriented x3 Gait: Steady ED Course And Treatment - Laboratory Results Result Diagrams: 12/11/17 21:16 12/11/17 21:16 ECG: Interpreted By Me, Viewed By Me ECG Rhythm: Sinus Rhythm (99), Nonspecific Changes O2 Sat by Pulse Oximetry: 92 (Room air) Pulse Ox Interpretation: Normal - Radiology CXR: Interpreted by Me, Viewed By Me CXR Interpretation: Yes: Other (fibrotic changes unchanged from 08/31). No: Infiltrates, Fracture, Pnemothorax Progress Note: Blood work, EKG, CXR, and urinalysis ordered. Albuterol nebulizer administered. Disposition Discussed With : Bassam Rolle Comment: accepted the pt on his service and took over the care at 10:12 PM Doctor Will See Patient In The: Hospital Counseled Patient/Family Regarding: Studies Performed, Diagnosis - Disposition Disposition: HOSPITALIZED Disposition Time: 20:08 Condition: FAIR Forms: [facility] (Croatian) - POA Present On Arrival: None - Clinical Impression Clinical Impression: Dyspnea, Upper respiratory infection, UTI (urinary tract infection) - Scribe Statement The provider has reviewed the documentation as recorded by the Scribgrace Sawant All medical record entries made by the Scribe were at my direction and personally dictated by me. I have reviewed the chart and agree that the record accurately reflects my personal performance of the history, physical exam, medical decision making, and the department course for this patient. I have also personally directed, reviewed, and agree with the discharge instructions and disposition. Decision To Admit - Pt Status Changed To: Hospital Disposition Of: Inpatient - Admit Certification Admit to Inpatient:: After my assessment, the patient will require hospitalization for at least two midnights. This is because of the severity of symptoms shown, intensity of services needed, and/or the medical risk in this patient being treated as an outpatient. - InPatient: Physician Admission Certification: I certify that this patient requires 2 or more midnights of care for the following reason:: After my assessment, the patient will require hospitalization for at least two midnights. This is because of the severity of symptoms shown, intensity of services needed, and/or the medical risk in this patient being treated as an outpatient. - . Bed Request Type: Regular Admitting Physician: Bassam Rolle Patient Diagnosis: Dyspnea, Upper respiratory infection, UTI (urinary tract infection)
[2017-12-11] MEDS ORDERED: Albuterol-Ipratrop 3 mg / 0.5 (3 ml) UD ONE ×3 (20:30→20:32)
[2017-12-11] MEDS: Albuterol-Ipratrop 3 mg / 0.5 (3 ml) UD IH SCH ×2 (20:33→21:11)
[2017-12-11 21:22] LABS: BASO % 0.7 % (0.0-2.0); EOS # 0.1 K/uL (0.0-0.7); EOS % 1.7 % (0.0-4.0); HEMOGLOBIN 12.7 g/dL (12.0-18.0); LYMPH # 0.8 K/uL (1.0-4.3); LYMPH % 15.8 % (20.0-40.0); MEAN CELL VOLUME 86.3 fL (80.0-94.0); MEAN CORPUSCULAR HEMOGLOBIN 28.7 pg (27.0-31.0); MEAN CORPUSCULAR HGB CONC 33.3 g/dL (33.0-37.0); MEAN PLATELET VOLUME 6.6 fL (7.2-11.7); MONO # 0.5 K/uL (0.0-0.8); MONO % 10.3 % (0.0-10.0); NEUT # 3.5 K/uL (1.8-7.0); NEUT % 71.5 % (50.0-75.0); RBC 4.41 Mil/uL (4.40-5.90); RED CELL DISTRIBUTION WIDTH 14.6 % (11.5-14.5); WHITE BLOOD COUNT 4.9 K/uL (4.8-10.8)
[2017-12-11 21:27] LABS: VENOUS BLOOD GAS BASE EXCESS 1.6 mmol/L (0.0-2.0); VENOUS BLOOD GAS PCO2 62 mmHg (40-60); VENOUS BLOOD GAS PO2 27 mm/Hg (30-55); VENOUS BLOOD PH 7.29 (7.32-7.43)
[2017-12-11 21:31] LABS: PROTHROMBIN TIME 11.2 SECONDS (9.7-12.2)
[2017-12-11 21:42] LABS: ALB/GLOB RATIO 1.3 (1.0-2.1); ALBUMIN 4.1 g/dL (3.5-5.0); ALT/SGPT 23 U/L (21-72); AST/SGOT 36 U/L (17-59); BLOOD UREA NITROGEN 14 mg/dL (9-20); CALCIUM 8.5 mg/dl (8.6-10.4); GFR AFRICAN-AMERICAN > 60; GFR NON-AFRICAN AMERICAN 58
[2017-12-11 21:44] LABS: URINE BILIRUBIN NEGATIVE (NEGATIVE); URINE BLOOD 2+ (NEGATIVE); URINE CLARITY Clear (Clear); URINE COLOR Yellow (YELLOW); URINE GLUCOSE (UA) NORMAL (Normal); URINE LEUKOCYTE ESTERASE TRACE Leu/uL (Negative); URINE PROTEIN 1+ mg/dL (NEGATIVE); URINE UROBILINOGEN NORMAL mg/dL (0.2-1.0)
[2017-12-11 21:53] LABS: B-TYPE NATRIURETIC PEPTIDE 60.9 pg/mL (0-900)
[2017-12-11] MEDS ORDERED: Piperacillin/Tazobact 3.375 gm 100 ML IVPB STA (22:08)
[2017-12-11] MEDS: MethylPREDNISolone 40 mg Vial IVP SCH (23:17)
[2017-12-11] MEDS: Piperacillin/Tazobact 3.375 GM in Sodium Chloride 100 ML IVPB SCH (23:17)
[2017-12-12] MEDS: Albuterol-Ipratrop 3 mg / 0.5 (3 ml) UD INH SCH ×5 (01:40→11:55)
[2017-12-12] MEDS: Piperacillin/Tazobact 3.375 GM in Sodium Chloride 100 ML IVPB SCH ×3 (06:55→22:03)
[2017-12-12 07:56] VITALS: RESP 20
[2017-12-12] MEDS: (Novolog) Insulin Aspart, Recombinant 100 u/ml 10 ml vial SC SCH ×4 (08:08→21:41)
--- NOTE | 2017-12-12 09:05 | CP.PCM.HP ---
History of Present Illness - History of Present Illness History of Present Illness: CC: Fever 82 y/o male with HTN, NIDDM, COPD, s/p TURP on 10/2017. Patient increasing cough x 1 week. Mucus is whitish. Yesterday noted urinating more, feels bladder is always full. He later felt SOB, very weak and fever/ chills. He went to ER/ admitted Present on Admission - Present on Admission Any Indicators Present on Admission: Yes History of DVT/PE: No History of Uncontrolled Diabetes: No Urinary Catheter: No Decubitus Ulcer Present: No Review of Systems - Review of Systems Systems not reviewed;Unavailable: Altered Mental Status - Constitutional Constitutional: Chills, Fever, Malaise, Weakness. absent: Headache, Increased Appetite, Night Sweats, Sleep Apnea, Weight Loss - EENT Eyes: absent: Change in Vision, Exophthalmos, Itchy Eyes, Spots in Vision, Other Visual Disturbances, Loss of Vision Ears: absent: Ear Discharge, Ear Pain, Tinnitus, Disequilibrium, Dizziness Nose/Mouth/Throat: absent: Nasal Congestion, Post Nasal Drip, Bleeding Gums - Cardiovascular Cardiovascular: Dyspnea. absent: Chest Pain, Diaphoresis, Edema, Leg Edema, Leg Ulcers, Orthopnea, Palpitations, Slow Heart Rate, Syncope - Respiratory Respiratory: Cough, Dyspnea, Dyspnea on Exertion, Chest Congestion, Excessive Mucous Production. absent: Hemoptysis, Wheezing, Snoring - Gastrointestinal Gastrointestinal: Abdominal Pain, Constipation. absent: Belching, Bloating, Diarrhea, Dyspepsia, Hematochezia, Loose Stools, Melena - Genitourinary Genitourinary: Urinary Frequency, Urinary Hesitance, Urinary Urgency, Voiding Freq/Small Amts. absent: Dysuria, Flank Pain, Hematuria, Urinary Incontinence - Musculoskeletal Musculoskeletal: absent: Atrophy, Back Pain, Loss of Height, Muscle Weakness, Numbness - Integumentary Integumentary: absent: Alopecia, Pruritus, Rash, Unusual Bruising - Neurological Neurological: absent: Behavioral Changes, Dizziness, Loss of Vision, Restless Legs, Syncope, Vertigo, Weakness - Psychiatric Psychiatric: absent: Anxiety, Difficulty Concentrating, Irritability, Suicidal Ideation Past Patient History - Infectious Disease Hx of Infectious Diseases: None - Past Medical History & Family History Past Medical History?: Yes - Past Social History Smoking Status: Former Smoker - CARDIAC Hx Cardiac Disorders: Yes Hx Hypercholesterolemia: Yes Hx Hypertension: Yes - PULMONARY Hx Respiratory Disorders: Yes Hx Asthma: Yes Hx Chronic Obstructive Pulmonary Disease (COPD): Yes Hx Emphysema: Yes (D/C SMOKING 10 YRS AGO 1 PACK PER DAY) - NEUROLOGICAL Hx Neurological Disorder: No - HEENT Hx HEENT Problems: No - RENAL Hx Chronic Kidney Disease: No - ENDOCRINE/METABOLIC Hx Endocrine Disorders: Yes Hx Diabetes Mellitus Type 2: Yes - HEMATOLOGICAL/ONCOLOGICAL Hx Blood Disorders: No - INTEGUMENTARY Hx Dermatological Problems: No - MUSCULOSKELETAL/RHEUMATOLOGICAL Hx Musculoskeletal Disorders: No Hx Falls: No - GASTROINTESTINAL Hx Gastrointestinal Disorders: Yes Hx Gastritis: Yes - GENITOURINARY/GYNECOLOGICAL Hx Genitourinary Disorders: Yes (URINARY RETENTION) Hx Prostate Problems: Yes Other/Comment: BPH - PSYCHIATRIC Hx Psychophysiologic Disorder: No Hx Substance Use: No - SURGICAL HISTORY Hx Surgeries: Yes Hx Cholecystectomy: Yes - ANESTHESIA Hx Anesthesia: Yes Hx Anesthesia Reactions: No Hx Malignant Hyperthermia: No Meds Allergies/Adverse Reactions: Allergies Allergy/AdvReac Type Severity Reaction Status Date / Time No Known Allergies Allergy Verified 10/16/17 21:59 Physical Exam - Constitutional Appears: No Acute Distress - Eye Exam Eye Exam: Normal appearance - ENT Exam ENT Exam: Mucous Membranes Moist - Neck Exam Neck exam: Positive for: Full Rom. Negative for: Lymphadenopathy, Thyromegaly - Respiratory Exam Respiratory Exam: Decreased Breath Sounds. absent: Rales, Rhonchi, Wheezes - Cardiovascular Exam Cardiovascular Exam: REGULAR RHYTHM, +S1, +S2. absent: Gallop, JVD, Systolic Murmur - GI/Abdominal Exam GI & Abdominal Exam: Soft. absent: Organomegaly ((+) has full bladder), Rigid, Tenderness - Extremities Exam Extremities exam: Positive for: full ROM, normal capillary refill. Negative for : calf tenderness, joint swelling, pedal edema Results - Vital Signs Recent Vital Signs: Last Vital Signs Temp 98.1 F 12/12/17 07:51 Pulse 98 H 12/12/17 07:51 Resp 20 12/12/17 07:51 BP 120/73 12/12/17 07:51 Pulse Ox 96 12/12/17 07:51 - Labs Result Diagrams: 12/11/17 21:16 12/11/17 21:16 Labs: Laboratory Results - last 24 hr 12/11/17 12/11/17 12/11/17 21:16 21:16 21:16 WBC 4.9 RBC 4.41 Hgb 12.7 Hct 38.1 MCV 86.3 MCH 28.7 MCHC 33.3 RDW 14.6 H Plt Count 175 MPV 6.6 L Neut % (Auto) 71.5 Lymph % (Auto) 15.8 L Bland % (Auto) 10.3 H Eos % (Auto) 1.7 Baso % (Auto) 0.7 Neut # (Auto) 3.5 Lymph # (Auto) 0.8 L Bland # (Auto) 0.5 Eos # (Auto) 0.1 Baso # (Auto) 0.0 PT 11.2 INR 1.0 APTT 36 H pO2 VBG pH VBG pCO2 VBG HCO3 VBG Total CO2 VBG O2 Sat (Calc) VBG Base Excess VBG Potassium Glucose Lactate Sodium 141 Potassium 4.6 Chloride 100 Carbon Dioxide 31 H Anion Gap 14 BUN 14 Creatinine 1.2 Est GFR ( Amer) > 60 Est GFR (Non-Af Amer) 58 POC Glucose (mg/dL) Random Glucose 99 Calcium 8.5 L Magnesium 2.1 Total Bilirubin 0.6 AST 36 ALT 23 Alkaline Phosphatase 114 Troponin I < 0.0120 NT-Pro-B Natriuret Pep 60.9 Total Protein 7.3 Albumin 4.1 Globulin 3.1 Albumin/Globulin Ratio 1.3 Venous Blood Potassium Urine Color Urine Clarity Urine pH Ur Specific [place] Urine Protein Urine Glucose (UA) Urine Ketones Urine Blood Urine Nitrate Urine Bilirubin Urine Urobilinogen Ur Leukocyte Esterase Urine WBC (Auto) Urine RBC (Auto) 12/11/17 12/11/17 12/12/17 21:24 21:37 07:14 WBC RBC Hgb Hct MCV MCH MCHC RDW Plt Count MPV Neut % (Auto) Lymph % (Auto) Bland % (Auto) Eos % (Auto) Baso % (Auto) Neut # (Auto) Lymph # (Auto) Bland # (Auto) Eos # (Auto) Baso # (Auto) PT INR APTT pO2 27 L VBG pH 7.29 L VBG pCO2 62 H VBG HCO3 24.7 VBG Total CO2 31.7 H VBG O2 Sat (Calc) 48.7 VBG Base Excess 1.6 VBG Potassium 4.0 Glucose 99 Lactate 1.5 Sodium 137.0 Potassium Chloride 102.0 Carbon Dioxide Anion Gap BUN Creatinine Est GFR ( Amer) Est GFR (Non-Af Amer) POC Glucose (mg/dL) 162 H Random Glucose Calcium Magnesium Total Bilirubin AST ALT Alkaline Phosphatase Troponin I NT-Pro-B Natriuret Pep Total Protein Albumin Globulin Albumin/Globulin Ratio Venous Blood Potassium 4.0 Urine Color Yellow Urine Clarity Clear Urine pH 5.0 Ur Specific [place] 1.020 Urine Protein 1+ H Urine Glucose (UA) Normal Urine Ketones Negative Urine Blood 2+ H Urine Nitrate Negative Urine Bilirubin Negative Urine Urobilinogen Normal Ur Leukocyte Esterase Trace Urine WBC (Auto) 21 H Urine RBC (Auto) 18 H Assessment & Plan - Assessment and Plan (Free Text) Assessment: COPD, Exac; UTI?, Constipated BPH, NIDDM, HTN, Hyperlipidemia On Zosyn/ Steroid/ Bronchodilator/ Pulm consult Urology consult Cont Losartan/ sliding scale Miralax
--- NOTE | 2017-12-12 09:52 | RAD ---
Chest x-ray single frontal view History: Shortness of breath. Comparison: 08/21/2017 Findings: Hyperinflation suggestive for COPD and or emphysematous changes. Biapical pleural thickening with upper lobe granulomatous changes. Diffuse increased interstitial lung markings which may represent mild edema or infiltrate. Patchy increased markings at the left lung base. Small nodular density in the lateral aspect of the right midlung zone may represent calcified granuloma and or nodule. Right hilar prominence. Degenerative changes in the spine and shoulders. Impression: Hyperinflation suggestive for COPD and or emphysematous changes. Biapical pleural thickening with upper lobe granulomatous changes. Diffuse increased interstitial lung markings which may represent mild edema or infiltrate. Patchy increased markings at the left lung base. Small nodular density in the lateral aspect of the right midlung zone may represent calcified granuloma and or nodule. Right hilar prominence.
[2017-12-12] MEDS ORDERED: Home Med 1 UNIT (Silodosin [Rapaflo] 8 MG) PO SCH (10:00)
[2017-12-12] MEDS ORDERED: Home Med 1 UNIT (Budesonide/Formoterol Fumarate [Symbicort 160-4.5 Mcg Inhaler] 1 AER) IH SCH (10:00)
[2017-12-12] MEDS: MethylPREDNISolone 40 mg Vial IVP SCH ×2 (10:41→21:41)
[2017-12-12] MEDS: Enoxaparin 30 mg Syringe SC SCH ×2 (10:41→21:40)
[2017-12-12] MEDS: POLYETHYLENE GLYCOL 3350 17 GM/Dose PACKET PO SCH ×2 (10:41→21:42)
[2017-12-12] MEDS ORDERED: Fluticasone-Salmeterol 100-50mcg Diskus IH SCH ×2 (11:00→20:00)
--- NOTE | 2017-12-12 12:20 | CARD ---
APPROVED REPORT EKG Measurement Heart [id number] <Conclusion> Normal sinus rhythm with sinus arrhythmia Normal Electrocardiogram
--- NOTE | 2017-12-12 15:17 | CP.PCM.CON ---
History of Present Illness - History of Present Illness History of Present Illness: Reason for consult: COPD Exaceberation HPI: 82M with PMHx COPD, Diabetes, HTN, HLD,of presented to the ED 12/11 with complaints of 1 day of shortness of breath, cough productive of whitish sputum and fever since the day prior. The patient reported fatigued and took tylenol with minimal relief. He was admitted to Dr. Rolle' service. Today the patient was sen and examined at bedside on the med/surg floors. His shortness of breath and cough continue. PMHx: COPD, Diabetes, gastritis, HTN, HLD, PSH: cholecystectomy, ERCP, TULIP Allergies: NKDA SH: prior PPD smoking habit, quit 7 years ago, denies alcohol and illicit drug use Assessment and Plan: 1. COPD Exacerbation - Saturating 92-99% on 2L NC - CXR 12/11: hyperinflated lungs and emphysematous changes - VBG 12/11: 7.29/62/27/24.7 - Nebulizer treatments - IV antibiotics - solumedrol - ABG 2. Fever of unknown origin - TMax 101.6, now 98.1 - CBC 12/11: WBC 4.9, monitor - U/A 12/11: 1+ protein, 2+ blood, 21 WBC, 18 RBC, trace Leuk esterase, negative nitrate - zosyn Past Patient History - Infectious Disease Hx of Infectious Diseases: None - Past Medical History & Family History Past Medical History?: Yes - Past Social History Smoking Status: Former Smoker - CARDIAC Hx Cardiac Disorders: Yes Hx Hypercholesterolemia: Yes Hx Hypertension: Yes - PULMONARY Hx Respiratory Disorders: Yes Hx Asthma: Yes Hx Chronic Obstructive Pulmonary Disease (COPD): Yes Hx Emphysema: Yes (D/C SMOKING 10 YRS AGO 1 PACK PER DAY) - NEUROLOGICAL Hx Neurological Disorder: No - HEENT Hx HEENT Problems: No - RENAL Hx Chronic Kidney Disease: No - ENDOCRINE/METABOLIC Hx Endocrine Disorders: Yes Hx Diabetes Mellitus Type 2: Yes - HEMATOLOGICAL/ONCOLOGICAL Hx Blood Disorders: No - INTEGUMENTARY Hx Dermatological Problems: No - MUSCULOSKELETAL/RHEUMATOLOGICAL Hx Musculoskeletal Disorders: No Hx Falls: No - GASTROINTESTINAL Hx Gastrointestinal Disorders: Yes Hx Gastritis: Yes - GENITOURINARY/GYNECOLOGICAL Hx Genitourinary Disorders: Yes (URINARY RETENTION) Hx Prostate Problems: Yes Other/Comment: BPH - PSYCHIATRIC Hx Psychophysiologic Disorder: No Hx Substance Use: No - SURGICAL HISTORY Hx Surgeries: Yes Hx Cholecystectomy: Yes - ANESTHESIA Hx Anesthesia: Yes Hx Anesthesia Reactions: No Hx Malignant Hyperthermia: No Meds Allergies/Adverse Reactions: Allergies Allergy/AdvReac Type Severity Reaction Status Date / Time No Known Allergies Allergy Verified 10/16/17 21:59 - Medications Medications: Current Medications Albuterol/Ipratropium (Duoneb 3 Mg/0.5 Mg (3 Ml) Ud) 3 ml INH RQ4 [facility] Last Admin: 12/12/17 07:05 Dose: 3 ml Enoxaparin Sodium (Lovenox) 30 mg SC Q12 [facility] Last Admin: 12/12/17 10:41 Dose: 30 mg Piperacillin Sod/Tazobactam (Sod 3.375 gm/ Sodium Chloride) 100 mls @ 200 mls/ hr IVPB Q8H [facility] PRN Reason: Protocol Last Admin: 12/12/17 14:36 Dose: 200 mls/hr Insulin Aspart (Novolog) 0 unit SC ACHS [facility] PRN Reason: Protocol Last Admin: 12/12/17 12:30 Dose: 2 unit Losartan Potassium (Cozaar) 25 mg PO DAILY [facility] Last Admin: 12/12/17 10:41 Dose: 25 mg Methylprednisolone (Solu-Medrol) 40 mg IVP Q12 [facility] Last Admin: 12/12/17 10:41 Dose: 40 mg Polyethylene Glycol (Miralax) 17 gm PO BID [facility] Last Admin: 12/12/17 10:41 Dose: 17 gm Rosuvastatin Calcium (Crestor) 10 mg PO HS [facility] Fluticasone/Salmeterol (Advair Diskus 100/50) 1 puff IH RBID [facility] Tamsulosin HCl (Flomax) 0.4 mg PO DAILY [facility] Last Admin: 12/12/17 10:41 Dose: 0.4 mg Results - Vital Signs Recent Vital Signs: Last Vital Signs Temp 98.1 F 12/12/17 07:51 Pulse 98 H 12/12/17 07:51 Resp 20 12/12/17 07:51 BP 120/73 12/12/17 07:51 Pulse Ox 96 12/12/17 07:51 - Labs Result Diagrams: 12/11/17 21:16 12/11/17 21:16 Labs: Laboratory Results - last 24 hr 12/11/17 12/11/17 12/11/17 21:16 21:16 21:16 WBC 4.9 RBC 4.41 Hgb 12.7 Hct 38.1 MCV 86.3 MCH 28.7 MCHC 33.3 RDW 14.6 H Plt Count 175 MPV 6.6 L Neut % (Auto) 71.5 Lymph % (Auto) 15.8 L [place] % (Auto) 10.3 H Eos % (Auto) 1.7 Baso % (Auto) 0.7 Neut # (Auto) 3.5 Lymph # (Auto) 0.8 L [place] # (Auto) 0.5 Eos # (Auto) 0.1 Baso # (Auto) 0.0 PT 11.2 INR 1.0 APTT 36 H pO2 VBG pH VBG pCO2 VBG HCO3 VBG Total CO2 VBG O2 Sat (Calc) VBG Base Excess VBG Potassium Glucose Lactate Sodium 141 Potassium 4.6 Chloride 100 Carbon Dioxide 31 H Anion Gap 14 BUN 14 Creatinine 1.2 Est GFR ( Amer) > 60 Est GFR (Non-Af Amer) 58 POC Glucose (mg/dL) Random Glucose 99 Calcium 8.5 L Magnesium 2.1 Total Bilirubin 0.6 AST 36 ALT 23 Alkaline Phosphatase 114 Troponin I < 0.0120 NT-Pro-B Natriuret Pep 60.9 Total Protein 7.3 Albumin 4.1 Globulin 3.1 Albumin/Globulin Ratio 1.3 Venous Blood Potassium Urine Color Urine Clarity Urine pH Ur Specific [place] Urine Protein Urine Glucose (UA) Urine Ketones Urine Blood Urine Nitrate Urine Bilirubin Urine Urobilinogen Ur Leukocyte Esterase Urine WBC (Auto) Urine RBC (Auto) 12/11/17 12/11/17 12/12/17 21:24 21:37 07:14 WBC RBC Hgb Hct MCV MCH MCHC RDW Plt Count MPV Neut % (Auto) Lymph % (Auto) [place] % (Auto) Eos % (Auto) Baso % (Auto) Neut # (Auto) Lymph # (Auto) [place] # (Auto) Eos # (Auto) Baso # (Auto) PT INR APTT pO2 27 L VBG pH 7.29 L VBG pCO2 62 H VBG HCO3 24.7 VBG Total CO2 31.7 H VBG O2 Sat (Calc) 48.7 VBG Base Excess 1.6 VBG Potassium 4.0 Glucose 99 Lactate 1.5 Sodium 137.0 Potassium Chloride 102.0 Carbon Dioxide Anion Gap BUN Creatinine Est GFR ( Amer) Est GFR (Non-Af Amer) POC Glucose (mg/dL) 162 H Random Glucose Calcium Magnesium Total Bilirubin AST ALT Alkaline Phosphatase Troponin I NT-Pro-B Natriuret Pep Total Protein Albumin Globulin Albumin/Globulin Ratio Venous Blood Potassium 4.0 Urine Color Yellow Urine Clarity Clear Urine pH 5.0 Ur Specific [place] 1.020 Urine Protein 1+ H Urine Glucose (UA) Normal Urine Ketones Negative Urine Blood 2+ H Urine Nitrate Negative Urine Bilirubin Negative Urine Urobilinogen Normal Ur Leukocyte Esterase Trace Urine WBC (Auto) 21 H Urine RBC (Auto) 18 H 12/12/17 11:02 WBC RBC Hgb Hct MCV MCH MCHC RDW Plt Count MPV Neut % (Auto) Lymph % (Auto) [place] % (Auto) Eos % (Auto) Baso % (Auto) Neut # (Auto) Lymph # (Auto) [place] # (Auto) Eos # (Auto) Baso # (Auto) PT INR APTT pO2 VBG pH VBG pCO2 VBG HCO3 VBG Total CO2 VBG O2 Sat (Calc) VBG Base Excess VBG Potassium Glucose Lactate Sodium Potassium Chloride Carbon Dioxide Anion Gap BUN Creatinine Est GFR ( Amer) Est GFR (Non-Af Amer) POC Glucose (mg/dL) 206 H Random Glucose Calcium Magnesium Total Bilirubin AST ALT Alkaline Phosphatase Troponin I NT-Pro-B Natriuret Pep Total Protein Albumin Globulin Albumin/Globulin Ratio Venous Blood Potassium Urine Color Urine Clarity Urine pH Ur Specific [place] Urine Protein Urine Glucose (UA) Urine Ketones Urine Blood Urine Nitrate Urine Bilirubin Urine Urobilinogen Ur Leukocyte Esterase Urine WBC (Auto) Urine RBC (Auto)
--- NOTE | 2017-12-12 18:42 | CP.PCM.PN ---
Subjective - Date & Time of Evaluation Date of Evaluation: 12/12/17 Time of Evaluation: 18:38 - Subjective Subjective: 72 year old w philipino male admitted with pneumonia. pt had Tulap 10/30/17 and is voiding well. U/a shoms some hematuria and pyuria consistant with post op state. exam unremarkable. A normal post TULAP pt. suggest pt follow up in our officce in 3 mos of discharge Objective - Vital Signs/Intake and Output Vital Signs (last 24 hours): Temp Pulse Resp BP Pulse Ox 98.1 F 98 H 20 120/73 96 12/12/17 07:51 12/12/17 07:51 12/12/17 07:51 12/12/17 07:51 12/12/17 07:51 Intake and Output: 12/12/17 12/12/17 06:59 18:59 Intake Total 300 580 Balance 300 580 - Medications Medications: Current Medications Albuterol/Ipratropium (Duoneb 3 Mg/0.5 Mg (3 Ml) Ud) 3 ml INH RQ4 [facility] Last Admin: 12/12/17 07:05 Dose: 3 ml Enoxaparin Sodium (Lovenox) 30 mg SC Q12 [facility] Last Admin: 12/12/17 10:41 Dose: 30 mg Piperacillin Sod/Tazobactam (Sod 3.375 gm/ Sodium Chloride) 100 mls @ 200 mls/ hr IVPB Q8H [facility] PRN Reason: Protocol Last Admin: 12/12/17 14:36 Dose: 200 mls/hr Insulin Aspart (Novolog) 0 unit SC ACHS [facility] PRN Reason: Protocol Last Admin: 12/12/17 17:44 Dose: 1 unit Losartan Potassium (Cozaar) 25 mg PO DAILY [facility] Last Admin: 12/12/17 10:41 Dose: 25 mg Methylprednisolone (Solu-Medrol) 40 mg IVP Q12 [facility] Last Admin: 12/12/17 10:41 Dose: 40 mg Polyethylene Glycol (Miralax) 17 gm PO BID [facility] Last Admin: 12/12/17 10:41 Dose: 17 gm Rosuvastatin Calcium (Crestor) 10 mg PO HS [facility] Fluticasone/Salmeterol (Advair Diskus 100/50) 1 puff IH RBID [facility] Tamsulosin HCl (Flomax) 0.4 mg PO DAILY [facility] Last Admin: 12/12/17 10:41 Dose: 0.4 mg - Labs Labs: 12/11/17 21:16 12/11/17 21:16 PT 11.2 SECONDS (9.7-12.2) 12/11/17 21:16 INR 1.0 12/11/17 21:16 APTT 36 SECONDS (21-34) H 12/11/17 21:16
[2017-12-13] MEDS: Albuterol-Ipratrop 3 mg / 0.5 (3 ml) UD INH SCH ×4 (00:15→11:44)
[2017-12-13] MEDS: Piperacillin/Tazobact 3.375 GM in Sodium Chloride 100 ML IVPB SCH (06:13)
[2017-12-13] MEDS: (Novolog) Insulin Aspart, Recombinant 100 u/ml 10 ml vial SC SCH ×2 (08:00→11:40)
--- NOTE | 2017-12-13 08:20 | CP.PCM.PN ---
Subjective - Date & Time of Evaluation Date of Evaluation: 12/13/17 Time of Evaluation: 08:10 - Subjective Subjective: Pt feels weel. Walk on corridor; lewis dec cough and no fever x > 24 hrs. No CP, no SOB, no edma, no n/v, no diarrhea, still with dribbing; Seen Pulm and urology service. Objective - Vital Signs/Intake and Output Vital Signs (last 24 hours): Temp Pulse Resp BP Pulse Ox 97.7 F 94 H 20 114/64 97 12/12/17 23:21 12/12/17 23:21 12/12/17 23:21 12/12/17 23:21 12/12/17 23:21 Intake and Output: 12/13/17 12/13/17 06:59 18:59 Intake Total 250 300 Balance 250 300 - Medications Medications: Current Medications Albuterol/Ipratropium (Duoneb 3 Mg/0.5 Mg (3 Ml) Ud) 3 ml INH RQ4 [facility] Last Admin: 12/13/17 07:10 Dose: 3 ml Enoxaparin Sodium (Lovenox) 30 mg SC Q12 [facility] Last Admin: 12/12/17 21:40 Dose: 30 mg Piperacillin Sod/Tazobactam (Sod 3.375 gm/ Sodium Chloride) 100 mls @ 200 mls/ hr IVPB Q8H [facility] PRN Reason: Protocol Last Admin: 12/13/17 06:13 Dose: 200 mls/hr Insulin Aspart (Novolog) 0 unit SC ACHS [facility] PRN Reason: Protocol Last Admin: 12/13/17 08:00 Dose: 2 unit Losartan Potassium (Cozaar) 25 mg PO DAILY [facility] Last Admin: 12/12/17 10:41 Dose: 25 mg Methylprednisolone (Solu-Medrol) 40 mg IVP Q12 [facility] Last Admin: 12/12/17 21:41 Dose: 40 mg Polyethylene Glycol (Miralax) 17 gm PO BID [facility] Last Admin: 12/12/17 21:42 Dose: Not Given Rosuvastatin Calcium (Crestor) 10 mg PO HS [facility] Last Admin: 12/12/17 21:40 Dose: 10 mg Fluticasone/Salmeterol (Advair Diskus 100/50) 1 puff IH RBID [facility] Tamsulosin HCl (Flomax) 0.4 mg PO DAILY [facility] Last Admin: 12/12/17 10:41 Dose: 0.4 mg - Labs Labs: 12/11/17 21:16 12/11/17 21:16 PT 11.2 SECONDS (9.7-12.2) 12/11/17 21:16 INR 1.0 12/11/17 21:16 APTT 36 SECONDS (21-34) H 12/11/17 21:16 - Constitutional Appears: No Acute Distress - Eye Exam Eye Exam: Normal appearance - ENT Exam ENT Exam: Mucous Membranes Moist - Neck Exam Neck Exam: Full ROM. absent: Lymphadenopathy - Respiratory Exam Respiratory Exam: Clear to Ausculation Bilateral. absent: Rales, Rhonchi, Wheezes - GI/Abdominal Exam GI & Abdominal Exam: Soft. absent: Tenderness, Normal Bowel Sounds - Extremities Exam Extremities Exam: Full ROM, Normal Capillary Refill. absent: Calf Tenderness, Joint Swelling, Pedal Edema Assessment and Plan - Assessment and Plan (Free Text) Assessment: Fever; COPD exac BPH s/p TULIP, NIDDM, HTN Cont meds/ for discharge
[2017-12-13 08:26] VITALS: BP 110/61; PULSE 95; TEMP 97.9; O2SAT 94
[2017-12-13] MEDS: POLYETHYLENE GLYCOL 3350 17 GM/Dose PACKET PO SCH (09:47)
[2017-12-13] MEDS: MethylPREDNISolone 40 mg Vial IVP SCH (09:47)
[2017-12-13] MEDS: Enoxaparin 30 mg Syringe SC SCH (09:47)
--- NOTE | 2017-12-13 16:53 | CP.PCM.PN ---
Subjective - Date & Time of Evaluation Date of Evaluation: 12/13/17 Time of Evaluation: 13:00 - Subjective Subjective: Patient seen and examined at bedside. Patient is much improved with no complaints at this time other than urinary dribbling. Set to be discharged by primary Dr. Rolle with outpatient azitrhomycin. Clear from pulmonary standpoint. Assessment and Plan: 1. COPD Exacerbation - Saturating 94-97% - CXR 12/11: hyperinflated lungs and emphysematous changes - Nebulizer treatments - prednisone - symbicort - Follow-up outpatient, told patient to come in before his next scheduled appointment if he feels the need to 2. Fever of unknown origin - Afebrile over 24 hrs - CBC 12/11: WBC 4.9, monitor - U/A 12/11: 1+ protein, 2+ blood, 21 WBC, 18 RBC, trace Leuk esterase, negative nitrate - IV antibiotics to be switched to azithromycin Objective - Vital Signs/Intake and Output Vital Signs (last 24 hours): Temp Pulse Resp BP Pulse Ox 97.9 F 95 H 20 110/61 94 L 12/13/17 08:24 12/13/17 13:19 12/13/17 08:24 12/13/17 13:19 12/13/17 13:19 Intake and Output: 12/13/17 12/13/17 06:59 18:59 Intake Total 250 300 Balance 250 300 - Labs Labs: 12/11/17 21:16 12/11/17 21:16 PT 11.2 SECONDS (9.7-12.2) 12/11/17 21:16 INR 1.0 12/11/17 21:16 APTT 36 SECONDS (21-34) H 12/11/17 21:16
--- NOTE | 2017-12-13 20:20 | CON ---
DATE: I was asked to see the patient by Dr. Bassam Rolle. CHIEF COMPLAINT: Urinary hesitancy and dribbling. HISTORY OF PRESENT ILLNESS: The patient had a GreenLight laser prostatectomy on 10/30/2017 and did well postoperatively. He had some dysuria and dribbling which is markedly improved since the procedure but still persists in a minimum way. The patient was admitted to the [facility] with pneumonia, dyspnea, and possible UTI. The patient was admitted on 12/11/2017, has been on antibiotics since that time. He is also on Flomax and other medications. REVIEW OF SYSTEMS: RESPIRATORY: The patient was complaining of wheezing and cough which is improved since being placed on the antibiotics. CARDIAC: The patient has no history of chest pain or palpitations. GI: The patient has no history of constipation or change in bowel habits. : The patient has had minimal dysuria and dribbling which is slowly improving since he had his surgery on 10/30/2017. He has had no gross hematuria, fever, chills, or testicular pain. ORTHOPEDIC: Negative. NEUROLOGIC: Negative. VASCULAR: Negative. PHYSICAL EXAMINATION: VITAL SIGNS: Within normal limits. HEENT: Head, ears, eyes, nose and throat are within normal limits except the patient has a nasal cannula. LUNGS: Clear bilaterally except for bilateral basilar rales. HEART: Normal sinus rhythm. There is no murmur. ABDOMEN: Soft, nontender. The bladder is nonpalpably distended. There are no abdominal masses. RECTAL: Shows a 3+ nonnodular prostate. Testicle, epididymis, and cord are normal. EXTREMITIES: Normal. IMPRESSION: Normal findings for postoperative state, suggest that the patient needs no therapy at this time. The patient should be followed up at our office 2 to 3 months after discharge and continue on Flomax until we see him. Darryl Bynum MD
== END 2017-12-13 13:58 | disposition home health service (06) | DRG 191 ==
LOC: C.ER 19:40 → C.9E 22:12 → C.3T 22:54
PROVIDERS: ADMIT Internal Medicine; ATTEND Internal Medicine
DX: J44.1 Chronic obstructive pulmonary disease with (acute) exacerbation (principal); N39.0 Urinary tract infection, site not specified; R50.9 Fever, unspecified; J06.9 Acute upper respiratory infection, unspecified; E11.9 Type 2 diabetes mellitus without complications; I10 Essential (primary) hypertension; E78.00 Pure hypercholesterolemia, unspecified; E78.5 Hyperlipidemia, unspecified; K59.00 Constipation, unspecified; N40.0 Benign prostatic hyperplasia without lower urinary tract symptoms; Z79.84 Long term (current) use of oral hypoglycemic drugs; Z87.891 Personal history of nicotine dependence; Z90.49 Acquired absence of other specified parts of digestive tract; Z90.79 Acquired absence of other genital organ(s)

== ENCOUNTER 2018-08-13 11:20 | Inpatient (IN) | payer MEDICARE ==
[2018-08-13 11:20] VITALS: BMI 17.9
[2018-08-13] MEDS ORDERED: Albuterol-Ipratrop 3 mg / 0.5 (3 ml) UD INH STA ×2 (12:05→12:52)
[2018-08-13] MEDS ORDERED: Azithromycin 500 MG in Sodium Chloride 0.9% 250 ML IVPB STA (12:06)
[2018-08-13] MEDS ORDERED: Albuterol-Ipratrop 3 mg / 0.5 (3 ml) UD ONE ×2 (12:11→13:10)
[2018-08-13] MEDS ORDERED: cefTRIAXone 1 gm 1 GM/100 ML BAG IVPB ONE (12:15)
[2018-08-13 12:16] LABS: BASO % 0.4 % (0.0-2.0); EOS % 0.3 % (0.0-4.0); LYMPH # 0.6 K/uL (1.0-4.3); LYMPH % 4.2 % (20.0-40.0); MEAN CELL VOLUME 87.1 fL (80.0-94.0); MEAN CORPUSCULAR HEMOGLOBIN 29.1 pg (27.0-31.0); MEAN CORPUSCULAR HGB CONC 33.4 g/dL (33.0-37.0); MEAN PLATELET VOLUME 6.9 fL (7.2-11.7); MONO # 0.8 K/uL (0.0-0.8); MONO % 5.8 % (0.0-10.0); NEUT # 11.9 K/uL (1.8-7.0); NEUT % 89.3 % (50.0-75.0); RBC 4.46 Mil/uL (4.40-5.90); RED CELL DISTRIBUTION WIDTH 15.1 % (11.5-14.5)
[2018-08-13 12:17] LABS: PLATELET COUNT 420 K/uL (130-400); WHITE BLOOD COUNT 13.3 K/uL (4.8-10.8)
[2018-08-13 12:30] LABS: VENOUS BLOOD GAS BASE EXCESS 4.8 mmol/L (0.0-2.0); VENOUS BLOOD GAS PCO2 66 mmHg (40-60); VENOUS BLOOD GAS PO2 14 mm/Hg (30-55); VENOUS BLOOD PH 7.31 (7.32-7.43)
[2018-08-13 12:32] LABS: ALB/GLOB RATIO 1.2 (1.0-2.1); ALBUMIN 4.3 g/dL (3.5-5.0); ALT/SGPT 70 U/L (21-72); AST/SGOT 80 U/L (17-59); BLOOD UREA NITROGEN 20 mg/dL (9-20); CALCIUM 8.9 mg/dl (8.6-10.4); GFR NON-AFRICAN AMERICAN 58
[2018-08-13 12:44] LABS: B-TYPE NATRIURETIC PEPTIDE 66.8 pg/mL (0-900)
--- NOTE | 2018-08-13 13:04 | C.PDOC ---
Time Seen by Provider: 08/13/18 11:41 Chief Complaint (Nursing): Shortness Of Breath Past Medical History Vital Signs: Last Vital Signs Temp 99 F 08/13/18 11:23 Pulse 113 H 08/13/18 12:35 Resp 24 08/13/18 12:35 BP 142/76 08/13/18 12:35 Pulse Ox 95 08/13/18 12:35 - Medical History PMH: Asthma, COPD, Diabetes, Emphysema (D/C SMOKING 10 YRS AGO 1 PACK PER DAY), Gastritis, HTN, Hypercholesterolemia, Hyperlipidemia Denies: Chronic Kidney Disease Surgical History: Cholecystectomy, Endoscopy (ERCP) - [facility] Procedures CYSTOMETROGRAM (10/07/14) CYSTOSCOPY NEC (10/14/14) ENDOSCOPIC BRONCHIAL BX (01/15/13) EXCISION OF MIDDLE ESOPHAGUS, ENDO, DIAGN (08/14/17) EXCISION OF STOMACH, ENDO, DIAGN (08/14/17) EXCISION OF STOMACH, PYLORUS, ENDO, DIAGN (08/14/17) INSERT INDWELLING CATH (10/18/14) TRANSURETHRAL PROSTATECTOMY (TULIP) (10/14/14) ULTRASONOGRAPHY OF GASTROINTESTINAL TRACT (08/14/17) Family History: States: Unknown Family Hx - Social History Hx Tobacco Use: No (quit 7 yrs ago) Hx Alcohol Use: No Hx Substance Use: No - Immunization History Hx Tetanus Toxoid Vaccination: No Hx Influenza Vaccination: Yes Hx Pneumococcal Vaccination: Yes ED Course And Treatment - Laboratory Results Result Diagrams: 08/13/18 12:17 08/13/18 12:20 O2 Sat by Pulse Oximetry: [address] Sotero Rolle Doctor Will See Patient In The: Hospital Counseled Patient/Family Regarding: Studies Performed, Diagnosis - Disposition Disposition Time: 13:04 Forms: [facility] ([place]) - Clinical Impression Clinical Impression: COPD exacerbation
--- NOTE | 2018-08-13 13:05 | C.PDOC ---
History Of Present Illness 82 y/o male, w/PMhx of COPD, presents to the ER with family for evaluation of shortness of breath and cough which has been present for the past 1 week. Patient states that he has productive cough with clear yellow phlegm. Patient reports that he used his home medications without sustained improvement. Denies having CP, fever, and chills. Time Seen by Provider: 08/13/18 11:41 Chief Complaint (Nursing): Shortness Of Breath History Per: Patient History/Exam Limitations: no limitations Onset/Duration Of Symptoms: Days Current Symptoms Are (Timing): Still Present Past Medical History Reviewed: Historical Data, Nursing Documentation, Vital Signs Vital Signs: Last Vital Signs Temp 99 F 08/13/18 11:23 Pulse 113 H 08/13/18 12:35 Resp 24 08/13/18 12:35 BP 142/76 08/13/18 12:35 Pulse Ox 95 08/13/18 12:35 - Medical History PMH: Asthma, COPD, Diabetes, Emphysema (D/C SMOKING 10 YRS AGO 1 PACK PER DAY), Gastritis, HTN, Hypercholesterolemia, Hyperlipidemia Denies: Chronic Kidney Disease Surgical History: Cholecystectomy, Endoscopy (ERCP) - 2,10E+07 Procedures CYSTOMETROGRAM (10/07/14) CYSTOSCOPY NEC (10/14/14) ENDOSCOPIC BRONCHIAL BX (01/15/13) EXCISION OF MIDDLE ESOPHAGUS, ENDO, DIAGN (08/14/17) EXCISION OF STOMACH, ENDO, DIAGN (08/14/17) EXCISION OF STOMACH, PYLORUS, ENDO, DIAGN (08/14/17) INSERT INDWELLING CATH (10/18/14) TRANSURETHRAL PROSTATECTOMY (TULIP) (10/14/14) ULTRASONOGRAPHY OF GASTROINTESTINAL TRACT (08/14/17) Family History: States: No Known Family Hx - Social History Hx Tobacco Use: No (quit 7 yrs ago) Hx Alcohol Use: No Hx Substance Use: No - Immunization History Hx Tetanus Toxoid Vaccination: No Hx Influenza Vaccination: Yes Hx Pneumococcal Vaccination: Yes Review Of Systems Except As Marked, All Systems Reviewed And Found Negative. Constitutional: Negative for: Fever, Chills Cardiovascular: Negative for: Chest Pain Respiratory: Positive for: Cough, Shortness of Breath Physical Exam - Physical Exam Appears: Non-toxic, No Acute Distress Skin: Normal Color, Warm, Dry Head: Atraumatic, Normacephalic Eye(s): bilateral: Normal Inspection Nose: Normal Oral Mucosa: Moist Throat: Normal, No Erythema, No Exudate Neck: Supple Chest: Symmetrical Cardiovascular: Rhythm Regular Respiratory: Decreased Breath Sounds (distant breath sounds bilaterally), No Rales, No Rhonchi, No Wheezing Gastrointestinal/Abdominal: Soft, No Tenderness, No Guarding, No Rebound Neurological/Psych: Oriented x3, Normal Speech ED Course And Treatment - Laboratory Results Result Diagrams: 08/13/18 12:17 08/13/18 12:20 ECG: Interpreted By Me, Viewed By Me ECG Rhythm: Sinus Tachycardia Interpretation Of ECG: Sinus Tachycardia with normal interval, normal axises, and no ST/ T wave abnormalities Rate From EC O2 Sat by Pulse Oximetry: 95 (RA) Pulse Ox Interpretation: Normal - Other Rad CXR X-Ray: Viewed By Me, Read By Radiologist Interpretation: Date of service: 08/13/2018. PROCEDURE: CHEST RADIOGRAPH, 1 VIEW. HISTORY: SOB. COMPARISON: 12/11/2017. FINDINGS: LUNGS: No infiltrate. Calcified granuloma right upper lobe unchanged from prior examination. No other mass identified. PLEURA: No pneumothorax or pleural fluid seen. CARDIOVASCULAR: No aortic atherosclerotic calcification present. Normal. OSSEOUS STRUCTURES: No significant abnormalities. VISUALIZED UPPER ABDOMEN: Normal. OTHER FINDINGS: None. IMPRESSION: No acute infiltrate. Old granulomatous disease. Otherwise unremarkable. Medical Decision Making Medical Decision Making: Assessment: COPD Exacerbation Plan: --Labs --CXR --Albuterol Disposition Discussed With DrLeonardo: Sotero Rolle Doctor Will See Patient In The: Hospital Counseled Patient/Family Regarding: Studies Performed, Diagnosis - Disposition Disposition: HOSPITALIZED Disposition Time: 13:04 Condition: FAIR - Clinical Impression Clinical Impression: COPD exacerbation - Scribe Statement The provider has reviewed the documentation as recorded by the Scribe Daniella Chester Provider Attestation: All medical record entries made by the Scribe were at my direction and personally dictated by me. I have reviewed the chart and agree that the record accurately reflects my personal performance of the history, physical exam, medical decision making, and the department course for this patient. I have also personally directed, reviewed, and agree with the discharge instructions and disposition.
--- NOTE | 2018-08-13 13:07 | RAD ---
Date of service: 08/13/2018 PROCEDURE: CHEST RADIOGRAPH, 1 VIEW HISTORY: SOB COMPARISON: 12/11/2017 FINDINGS: LUNGS: No infiltrate. Calcified granuloma right upper lobe unchanged from prior examination. No other mass identified. PLEURA: No pneumothorax or pleural fluid seen. CARDIOVASCULAR: No aortic atherosclerotic calcification present. Normal. OSSEOUS STRUCTURES: No significant abnormalities. VISUALIZED UPPER ABDOMEN: Normal. OTHER FINDINGS: None. IMPRESSION: No acute infiltrate. Old granulomatous disease. Otherwise unremarkable.
[2018-08-13] MEDS ORDERED: Azithromycin 500mg/250ML NS 500 MG/250 ML BAG IVPB ONE (13:17)
[2018-08-13 13:19] LABS: BANDS 12 % (0-2); BASOPHIL 1 % (0-2); EOSINOPHIL 1 % (0-4); LYMPHOCYTE 4 % (20-40); MONOCYTE 5 % (0-10); NEUTROPHIL 77 % (50-75); TOTAL CELLS COUNTED 100
[2018-08-13 13:20] LABS: ANISOCYTOSIS SLIGHT; PLATELET ESTIMATE SLIGHTLY INCREASED (NORMAL)
--- NOTE | 2018-08-13 15:00 | CP.PCM.CON ---
<Mike Cornelius - Last Filed: 08/13/18 15:51> Meds Allergies/Adverse Reactions: Allergies Allergy/AdvReac Type Severity Reaction Status Date / Time No Known Allergies Allergy Verified 08/13/18 11:25 - Medications Medications: Current Medications Albuterol/Ipratropium (Duoneb 3 Mg/0.5 Mg (3 Ml) Ud) 3 ml INH RQ6 [facility] Ceftriaxone Sodium 1 gm/ (Sodium Chloride) 100 mls @ 100 mls/hr IVPB DAILY [facility]A; Protocol Azithromycin 500 mg/ Sodium (Chloride) 250 mls @ 250 mls/hr IVPB DAILY [facility]A; Protocol Methylprednisolone (Solu-Medrol) 40 mg IVP Q8 [facility]CITA Results - Vital Signs Recent Vital Signs: Last Vital Signs Temp 98.2 F 08/13/18 15:00 Pulse 118 H 08/13/18 15:00 Resp 26 H 08/13/18 15:00 BP 137/72 08/13/18 15:00 Pulse Ox 94 L 08/13/18 15:00 - Labs Result Diagrams: 08/13/18 12:17 08/13/18 12:20 Labs: Laboratory Results - last 24 hr 08/13/18 08/13/18 08/13/18 12:17 12:20 12:25 WBC 13.3 H D RBC 4.46 Hgb 13.0 Hct 38.9 MCV 87.1 MCH 29.1 MCHC 33.4 RDW 15.1 H Plt Count 420 H D MPV 6.9 L Neut % (Auto) 89.3 H Lymph % (Auto) 4.2 L [place] % (Auto) 5.8 Eos % (Auto) 0.3 Baso % (Auto) 0.4 Neut # (Auto) 11.9 H Lymph # (Auto) 0.6 L [place] # (Auto) 0.8 Eos # (Auto) 0.0 Baso # (Auto) 0.0 Neutrophils % (Manual) 77 H Band Neutrophils % 12 H* Lymphocytes % (Manual) 4 L Monocytes % (Manual) 5 Eosinophils % (Manual) 1 Basophils % (Manual) 1 Platelet Estimate Slightly increased H Anisocytosis (manual) Slight pO2 14 L VBG pH 7.31 L VBG pCO2 66 H* VBG HCO3 26.4 VBG Total CO2 35.2 H VBG O2 Sat (Calc) 15.6 L VBG Base Excess 4.8 H VBG Potassium 4.3 Glucose 167 H Lactate 2.2 H Crit Value Called To Dr grossman Crit Value Called By Sakina carver rn Crit Value Read Back Y Blood Gas Notified Time 1229 Sodium 136 139.0 Potassium 4.3 Chloride 95 L 100.0 Carbon Dioxide 34 H Anion Gap 11 BUN 20 Creatinine 1.2 Est GFR ( Amer) > 60 Est GFR (Non-Af Amer) 58 Random Glucose 162 H D Calcium 8.9 Total Bilirubin 1.4 H AST 80 H D ALT 70 Alkaline Phosphatase 302 H D Troponin I 0.0190 NT-Pro-B Natriuret Pep 66.8 Total Protein 8.0 Albumin 4.3 Globulin 3.7 Albumin/Globulin Ratio 1.2 Venous Blood Potassium 4.3 Attending/Attestation - Attestation I have personally seen and examined this patient.: Yes I have fully participated in the care of the patient.: Yes I have reviewed all pertinent clinical information: Yes Notes (Text): 08/13/18 15:51 patient seen and examined 82-year-old male with COPD presented to emergency room with productive cough and increasing shortness of breath. Elevated white count with 12 bands. Azithromycin and Rocephin IV steroids and nebulizer treatment Followup culture and sensitivity <Jono Vicente - Last Filed: 08/13/18 17:10> History of Present Illness - History of Present Illness History of Present Illness: PGY2 Consult Note for Dr. Cornelius Patient is an 82 year old male with a past medical history of COPD, diabetes, gastritis, HTN and HLD is presenting to the hospital with a complaint of cough and worsening shortness of breath x 1 week. The cough is productive with clear, yellow phlegm. Patient has been taking Mucinex and breathing treatments at home without improvement. He has not been taking anything for his cough. He denies fevers, chills or chest pain. PMH: COPD, diabetes, gastritis, HTN and HLD PSH: cholecystectomy, ERCP, [facility] Social: prior PPD smoking habit, quit 7 years ago, denies alcohol and illicit drug use Allergies: NKDA Review of Systems - Review of Systems All systems: reviewed and no additional remarkable complaints except (productive cough and shortness of breath) Past Patient History - Infectious Disease Hx of Infectious Diseases: None - Past Medical History & Family History Past Medical History?: Yes - Past Social History Smoking Status: Former Smoker - CARDIAC Hx Cardiac Disorders: Yes Hx Hypercholesterolemia: Yes Hx Hypertension: Yes - PULMONARY Hx Respiratory Disorders: Yes Hx Asthma: Yes Hx Chronic Obstructive Pulmonary Disease (COPD): Yes Hx Emphysema: Yes (D/C SMOKING 10 YRS AGO 1 PACK PER DAY) - NEUROLOGICAL Hx Neurological Disorder: No - HEENT Hx HEENT Problems: No - RENAL Hx Chronic Kidney Disease: No - ENDOCRINE/METABOLIC Hx Endocrine Disorders: Yes Hx Diabetes Mellitus Type 2: Yes - HEMATOLOGICAL/ONCOLOGICAL Hx Blood Disorders: No - INTEGUMENTARY Hx Dermatological Problems: No - MUSCULOSKELETAL/RHEUMATOLOGICAL Hx Musculoskeletal Disorders: No Hx Falls: No - GASTROINTESTINAL Hx Gastrointestinal Disorders: Yes Hx Gastritis: Yes - GENITOURINARY/GYNECOLOGICAL Hx Genitourinary Disorders: Yes (URINARY RETENTION) Hx Prostate Problems: Yes Other/Comment: BPH - PSYCHIATRIC Hx Psychophysiologic Disorder: No Hx Substance Use: No - SURGICAL HISTORY Hx Surgeries: Yes Hx Cholecystectomy: Yes - ANESTHESIA Hx Anesthesia: Yes Hx Anesthesia Reactions: No Hx Malignant Hyperthermia: No Physical Exam - Constitutional Appears: Non-toxic, No Acute Distress, Other (actively coughing throughout exam) - Head Exam Head Exam: ATRAUMATIC, NORMOCEPHALIC - Eye Exam Eye Exam: Normal appearance - ENT Exam ENT Exam: Mucous Membranes Moist - Respiratory Exam Respiratory Exam: Decreased Breath Sounds, NORMAL BREATHING PATTERN. absent: Rales, Rhonchi, Wheezes, Respiratory Distress - Cardiovascular Exam Cardiovascular Exam: REGULAR RHYTHM - GI/Abdominal Exam GI & Abdominal Exam: Soft. absent: Distended, Firm, Guarding, Rigid, Tenderness - Neurological Exam Neurological exam: Alert, Oriented x3 - Psychiatric Exam Psychiatric exam: Normal Affect, Normal Mood - Skin Skin Exam: Dry, Warm Results - Vital Signs Recent Vital Signs: Last Vital Signs Temp 99 F 08/13/18 11:23 Pulse 113 H 08/13/18 12:35 Resp 20 08/13/18 14:18 BP 142/76 08/13/18 12:35 Pulse Ox 93 L 08/13/18 14:18 - Labs Result Diagrams: 08/13/18 12:17 08/13/18 12:20 Labs: Laboratory Results - last 24 hr 08/13/18 08/13/18 08/13/18 12:17 12:20 12:25 WBC 13.3 H D RBC 4.46 Hgb 13.0 Hct 38.9 MCV 87.1 MCH 29.1 MCHC 33.4 RDW 15.1 H Plt Count 420 H D MPV 6.9 L Neut % (Auto) 89.3 H Lymph % (Auto) 4.2 L [place] % (Auto) 5.8 Eos % (Auto) 0.3 Baso % (Auto) 0.4 Neut # (Auto) 11.9 H Lymph # (Auto) 0.6 L [place] # (Auto) 0.8 Eos # (Auto) 0.0 Baso # (Auto) 0.0 Neutrophils % (Manual) 77 H Band Neutrophils % 12 H* Lymphocytes % (Manual) 4 L Monocytes % (Manual) 5 Eosinophils % (Manual) 1 Basophils % (Manual) 1 Platelet Estimate Slightly increased H Anisocytosis (manual) Slight pO2 14 L VBG pH 7.31 L VBG pCO2 66 H* VBG HCO3 26.4 VBG Total CO2 35.2 H VBG O2 Sat (Calc) 15.6 L VBG Base Excess 4.8 H VBG Potassium 4.3 Glucose 167 H Lactate 2.2 H Crit Value Called To Dr grossman Crit Value Called By Sakina carver rn Crit Value Read Back Y Blood Gas Notified Time 1229 Sodium 136 139.0 Potassium 4.3 Chloride 95 L 100.0 Carbon Dioxide 34 H Anion Gap 11 BUN 20 Creatinine 1.2 Est GFR ( Amer) > 60 Est GFR (Non-Af Amer) 58 Random Glucose 162 H D Calcium 8.9 Total Bilirubin 1.4 H AST 80 H D ALT 70 Alkaline Phosphatase 302 H D Troponin I 0.0190 NT-Pro-B Natriuret Pep 66.8 Total Protein 8.0 Albumin 4.3 Globulin 3.7 Albumin/Globulin Ratio 1.2 Venous Blood Potassium 4.3 Assessment & Plan (1) COPD exacerbation Assessment and Plan: Patient has elevated WBC with 12 bands - continue to monitor CXR is unchanged from previous exams Azithromycin 500mg IVPB daily (started on 08/13/18) Rocephin 1gm IVPB daily (started on 08/13/18) Solu-Medrol 40mg IVP q8h Duonebs INH q6h f/u culture and sensitivity Status: Acute
[2018-08-13] MEDS: MethylPREDNISolone 40 mg Vial IVP SCH (16:26)
[2018-08-13] MEDS: Albuterol-Ipratrop 3 mg / 0.5 (3 ml) UD INH SCH (22:50)
[2018-08-14] MEDS: MethylPREDNISolone 40 mg Vial IVP SCH ×2 (00:09→08:24)
[2018-08-14 00:55] VITALS: TEMP 97.8
[2018-08-14] MEDS: Albuterol-Ipratrop 3 mg / 0.5 (3 ml) UD INH SCH ×2 (01:32→08:10)
[2018-08-14 07:36] VITALS: BP 126/71; RESP 18; O2SAT 95
[2018-08-14 08:44] VITALS: PULSE 110
--- NOTE | 2018-08-14 09:58 | CP.PCM.HP ---
History of Present Illness - History of Present Illness History of Present Illness: CC: SOB 82 y/o malr with COPD, NIDDM. patient has cough, chest congestin x 6 days. he went to ER c/o felt beginning SOB and was given Steroid. Patient lewis improve an want to go home. Present on Admission - Present on Admission Any Indicators Present on Admission: Yes History of DVT/PE: No History of Uncontrolled Diabetes: No Urinary Catheter: No Decubitus Ulcer Present: No Review of Systems - Review of Systems Systems not reviewed;Unavailable: Acuity of Condition - Constitutional Constitutional: Anorexia, Malaise, Weakness. absent: Chills, Excessive Sweat ing, Weight Loss - EENT Eyes: absent: Exophthalmos, Spots in Vision, Loss of Vision Ears: absent: Decreased Hearing, Ear Discharge, Ear Pain, Tinnitus Nose/Mouth/Throat: absent: Epistaxis, Nasal Discharge, Nasal Trauma, Bleeding Gums, Change in Voice - Cardiovascular Cardiovascular: Dyspnea. absent: Chest Pain, Diaphoresis, Dyspnea on Exertion, Edema, Irregular Heart Rhythm, Leg Edema, Palpitations, Pedal Edema, Syncope - Respiratory Respiratory: Cough, Chest Congestion, Excessive Mucous Production. absent: Hemoptysis, Dyspnea on Exertion, Change in Mucous Color - Gastrointestinal Gastrointestinal: absent: Abdominal Pain, Diarrhea, Dyspepsia, Dysphagia, Nausea - Genitourinary Genitourinary: absent: Difficulty Urinating, Urinary Urgency, Freq UTI - Musculoskeletal Musculoskeletal: absent: Joint Swelling, Limited Range of Motion, Loss of Height, Muscle Weakness, Myalgias, Numbness, Radiating Pain into Limb - Integumentary Integumentary: absent: Bleeding Lesions, Pruritus, Rash - Neurological Neurological: absent: Abnormal Gait, Dizziness, Radicular Pain, Restless Legs, Vertigo, Weakness Past Patient History - Infectious Disease Hx of Infectious Diseases: None - Past Medical History & Family History Past Medical History?: Yes - Past Social History Smoking Status: Former Smoker - CARDIAC Hx Cardiac Disorders: Yes Hx Hypercholesterolemia: Yes Hx Hypertension: Yes - PULMONARY Hx Respiratory Disorders: Yes Hx Asthma: Yes Hx Chronic Obstructive Pulmonary Disease (COPD): Yes Hx Emphysema: Yes (D/C SMOKING 10 YRS AGO 1 PACK PER DAY) - NEUROLOGICAL Hx Neurological Disorder: No - HEENT Hx HEENT Problems: No - RENAL Hx Chronic Kidney Disease: No - ENDOCRINE/METABOLIC Hx Endocrine Disorders: Yes Hx Diabetes Mellitus Type 2: Yes - HEMATOLOGICAL/ONCOLOGICAL Hx Blood Disorders: No - INTEGUMENTARY Hx Dermatological Problems: No - MUSCULOSKELETAL/RHEUMATOLOGICAL Hx Musculoskeletal Disorders: No Hx Falls: No - GASTROINTESTINAL Hx Gastrointestinal Disorders: Yes Hx Gastritis: Yes - GENITOURINARY/GYNECOLOGICAL Hx Genitourinary Disorders: Yes (URINARY RETENTION) Hx Prostate Problems: Yes Other/Comment: BPH - PSYCHIATRIC Hx Psychophysiologic Disorder: No Hx Substance Use: No - SURGICAL HISTORY Hx Surgeries: Yes Hx Cholecystectomy: Yes - ANESTHESIA Hx Anesthesia: Yes Hx Anesthesia Reactions: No Hx Malignant Hyperthermia: No Meds Allergies/Adverse Reactions: Allergies Allergy/AdvReac Type Severity Reaction Status Date / Time No Known Allergies Allergy Verified 08/13/18 11:25 Physical Exam - Constitutional Appears: Well - Eye Exam Eye Exam: Periorbital tenderness - ENT Exam ENT Exam: Mucous Membranes Moist - Neck Exam Neck exam: Positive for: Full Rom. Negative for: Lymphadenopathy - Respiratory Exam Respiratory Exam: Decreased Breath Sounds. absent: Rales, Rhonchi, Wheezes - Cardiovascular Exam Cardiovascular Exam: +S1, +S2. absent: Diastolic murmur, Gallop, REGULAR RHYTHM, JVD - GI/Abdominal Exam GI & Abdominal Exam: Soft. absent: Rebound, Tenderness - Extremities Exam Extremities exam: Positive for: full ROM, normal capillary refill. Negative for: calf tenderness, joint swelling, pedal pulses present Results - Vital Signs Recent Vital Signs: Last Vital Signs Temp 97.8 F 08/14/18 07:00 Pulse 110 H 08/14/18 08:39 Resp 18 08/14/18 07:00 BP 126/71 08/14/18 07:00 Pulse Ox 95 08/14/18 07:00 - Labs Result Diagrams: 08/13/18 12:17 08/13/18 12:20 Labs: Laboratory Results - last 24 hr 08/13/18 08/13/18 08/13/18 12:17 12:20 12:25 WBC 13.3 H D RBC 4.46 Hgb 13.0 Hct 38.9 MCV 87.1 MCH 29.1 MCHC 33.4 RDW 15.1 H Plt Count 420 H D MPV 6.9 L Neut % (Auto) 89.3 H Lymph % (Auto) 4.2 L [place] % (Auto) 5.8 Eos % (Auto) 0.3 Baso % (Auto) 0.4 Neut # (Auto) 11.9 H Lymph # (Auto) 0.6 L [place] # (Auto) 0.8 Eos # (Auto) 0.0 Baso # (Auto) 0.0 Neutrophils % (Manual) 77 H Band Neutrophils % 12 H* Lymphocytes % (Manual) 4 L Monocytes % (Manual) 5 Eosinophils % (Manual) 1 Basophils % (Manual) 1 Platelet Estimate Slightly increased H Anisocytosis (manual) Slight pO2 14 L VBG pH 7.31 L VBG pCO2 66 H* VBG HCO3 26.4 VBG Total CO2 35.2 H VBG O2 Sat (Calc) 15.6 L VBG Base Excess 4.8 H VBG Potassium 4.3 Glucose 167 H Lactate 2.2 H Crit Value Called To Dr grossman Crit Value Called By Sakina carver rn Crit Value Read Back Y Blood Gas Notified Time 1229 Sodium 136 139.0 Potassium 4.3 Chloride 95 L 100.0 Carbon Dioxide 34 H Anion Gap 11 BUN 20 Creatinine 1.2 Est GFR ( Amer) > 60 Est GFR (Non-Af Amer) 58 POC Glucose (mg/dL) Random Glucose 162 H D Lactic Acid Calcium 8.9 Total Bilirubin 1.4 H AST 80 H D ALT 70 Alkaline Phosphatase 302 H D Troponin I 0.0190 NT-Pro-B Natriuret Pep 66.8 Total Protein 8.0 Albumin 4.3 Globulin 3.7 Albumin/Globulin Ratio 1.2 Venous Blood Potassium 4.3 08/13/18 08/14/18 16:09 06:14 WBC RBC Hgb Hct MCV MCH MCHC RDW Plt Count MPV Neut % (Auto) Lymph % (Auto) [place] % (Auto) Eos % (Auto) Baso % (Auto) Neut # (Auto) Lymph # (Auto) [place] # (Auto) Eos # (Auto) Baso # (Auto) Neutrophils % (Manual) Band Neutrophils % Lymphocytes % (Manual) Monocytes % (Manual) Eosinophils % (Manual) Basophils % (Manual) Platelet Estimate Anisocytosis (manual) pO2 VBG pH VBG pCO2 VBG HCO3 VBG Total CO2 VBG O2 Sat (Calc) VBG Base Excess VBG Potassium Glucose Lactate Crit Value Called To Crit Value Called By Crit Value Read Back Blood Gas Notified Time Sodium Potassium Chloride Carbon Dioxide Anion Gap BUN Creatinine Est GFR ( Amer) Est GFR (Non-Af Amer) POC Glucose (mg/dL) 311 H Random Glucose Lactic Acid 1.0 Calcium Total Bilirubin AST ALT Alkaline Phosphatase Troponin I NT-Pro-B Natriuret Pep Total Protein Albumin Globulin Albumin/Globulin Ratio Venous Blood Potassium - EKG Data EKG Interpreted by: Myself EKG shows normal: Sinus rhythm Rate: Tachycardia - EKG Data When Compared to Previous EKG: No Significant Change Assessment & Plan - Assessment and Plan (Free Text) Assessment: COPD, Exac - improve w/ steroid Cont meds will discharge on Prednisone and Doxy
[2018-08-14] MEDS ORDERED: Enoxaparin 40 mg Syringe SC SCH (10:00)
[2018-08-14] MEDS ORDERED: Azithromycin 500 MG in Sodium Chloride 0.9% 250 ML IVPB SCH (10:00)
--- NOTE | 2018-08-16 10:19 | CARD ---
APPROVED REPORT Date of service: 08/13/2018 EKG Measurement Heart [id number] <Conclusion> Sinus tachycardia Otherwise normal ECG
== END 2018-08-14 11:15 | disposition home or self-care (01) | DRG 192 ==
LOC: C.ER 11:20 → C.9E 13:03 → C.5S 17:08
PROVIDERS: ADMIT Internal Medicine; ATTEND Internal Medicine
DX: J44.1 Chronic obstructive pulmonary disease with (acute) exacerbation (principal); E11.9 Type 2 diabetes mellitus without complications; E78.00 Pure hypercholesterolemia, unspecified; I10 Essential (primary) hypertension; N40.0 Benign prostatic hyperplasia without lower urinary tract symptoms; Z87.891 Personal history of nicotine dependence